=== PATIENT | female | born 1950 | race Caucasian/White ===

== ENCOUNTER 2017-05-23 23:24 | Inpatient (IN) | payer MEDICARE, MEDICAID ==
[~2017-05-23] VITALS: Ht 152.4 cm; Wt 84.1 kg
[2017-05-24] MEDS ORDERED: ATOR10TA60 PO (00:50)
[2017-05-24] MEDS ORDERED: POTA10TA10 PO (00:50)
[2017-05-24] MEDS ORDERED: GUAI237L83 PO (00:50)
[2017-05-24] MEDS ORDERED: CHOL10003 PO (00:50)
[2017-05-24] MEDS ORDERED: SENN8.6T80 PO (00:50)
[2017-05-24] MEDS ORDERED: MULT-245 PO (00:50)
[2017-05-24] MEDS ORDERED: ACET325T9 PO (00:50)
[2017-05-24] MEDS ORDERED: LEVO150T5 PO (00:50)
[2017-05-24] MEDS ORDERED: CALC1TAB64 PO (00:50)
[2017-05-24] MEDS ORDERED: BUPR150T8 PO (00:50)
[2017-05-24] MEDS ORDERED: QUET200T4 PO (00:50)
[2017-05-24] MEDS ORDERED: IBUP400T18 PO (00:50)
[2017-05-24] MEDS ORDERED: DIVA125C PO ×2 (00:50)
[2017-05-24] MEDS ORDERED: LORA10TA3 PO (00:50)
[2017-05-24] MEDS ORDERED: FURO-68 PO (00:50)
[2017-05-24] MEDS ORDERED: LOPE1LIQ11 PO (00:50)
[2017-05-24] MEDS ORDERED: MAGN400O7 PO (00:50)
[2017-05-24] MEDS ORDERED: POLY119P4 PO (00:50)
[2017-05-24] MEDS ORDERED: LOPE2TAB27 PO (00:50)
[2017-05-24] MEDS ORDERED: MINE473L5 TP (00:50)
[2017-05-24] MEDS ORDERED: GUAI5SYR PO (00:50)
[2017-05-24] MEDS ORDERED: CALC500T54 PO (00:50)
[2017-05-24] MEDS ORDERED: RISP3TAB23 PO (00:50)
[2017-05-24] MEDS ORDERED: METHYL SALICYLATE/MENTHOL TOPICAL OINTMENT 29GM TUBE. TP PRN (01:15)
[2017-05-24] MEDS ORDERED: MAG HYDROX/AL HYDROX/SIMETH 30 ML ORAL.SUSP PO PRN (01:15)
[2017-05-24] MEDS ORDERED: guaiFENesin DM 200MG/20MG 10 ML SYRUP PO PRN (01:30)
[2017-05-24] MEDS ORDERED: MAGNESIUM HYDROXIDE 2,400 MG/30 ML ORAL.SUSP. PO PRN ×2 (01:30→02:00)
[2017-05-24] MEDS ORDERED: ACETAMINOPHEN 325 MG TABLET PO PRN (01:30)
[2017-05-24] MEDS ORDERED: POLYETHYLENE GLYCOL 3350 17 GM PACKET. PO PRN (01:30)
[2017-05-24] MEDS ORDERED: CALCIUM CARBONATE 500 MG TAB.CHEW PO PRN (02:00)
[2017-05-24] MEDS ORDERED: LOPERAMIDE 2 MG CAPSULE PO PRN (02:00)
[2017-05-24] MEDS: LEVOTHYROXINE 150 MCG TABLET PO SCH (06:04)
[2017-05-24 06:28] VITALS: BP 114/64
[2017-05-24] MEDS: MULTIVITAMIN with MINERAL TABLET. PO SCH (08:09)
[2017-05-24] MEDS: CHOLECALCIFEROL (VITAMIN D3) 1,000 UNIT TABLET PO SCH (08:10)
[2017-05-24] MEDS: FUROSEMIDE 40 MG TABLET PO SCH ×2 (08:10→13:07)
[2017-05-24] MEDS: buPROPion SR 150 MG TABLET.SA PO SCH (08:10)
[2017-05-24] MEDS: risperiDONE 1 MG TABLET. PO SCH ×2 (08:10→19:16)
[2017-05-24] MEDS: DIVALPROEX 125 MG CAP.SPRINK PO SCH ×2 (08:10→20:13)
[2017-05-24] MEDS: POTASSIUM CHLORIDE 10 MEQ TABLET.ER. PO SCH (08:10)
[2017-05-24] MEDS: CALCIUM CARB/VIT D3 500/200 TABLET PO SCH (08:10)
[2017-05-24] MEDS: NICOTINE 21MG PATCH. TD SCH ×2 (08:11→08:17)
[2017-05-24] MEDS: MINERAL OIL/PETROLATUM TOPICAL CREAM 113GM JAR. TP SCH (08:18)
[2017-05-24 08:22] LABS: ALBUMIN 3.3 g/dL (3.4-5.0); ALBUMIN/GLOBULIN RATIO 1.1 (1.0-1.7); CALCIUM 9.7 mg/dL (8.5-10.1); CREATININE 0.5 mg/dL (0.6-1.0); GFR 123.8; MAGNESIUM 2.2 mg/dL (1.8-2.4); POTASSIUM 3.8 mmol/L (3.5-5.1); TOTAL BILIRUBIN 0.3 mg/dL (0.2-1.0); TOTAL PROTEIN 6.4 g/dL (6.4-8.2)
[2017-05-24] MEDS ORDERED: CETIRIZINE HCL 10 MG TABLET PO PRN (09:00)
[2017-05-24 09:01] LABS: VAL ACID 31 mcg/mL (50-100)
[2017-05-24 09:02] LABS: BASO % 1 % (0-3); EOS # 0.2 x10^3/uL (0.0-0.7); EOS % 3 % (0-3); HEMATOCRIT 36.4 % (36.0-47.0); HEMOGLOBIN 12.6 g/dL (12.0-15.5); LYMPH # 1.3 x10^3/uL (1.0-4.8); LYMPH % 22 % (24-48); MEAN CORPUSCULAR HEMOGLOBIN 32 pg (25-35); MEAN CORPUSCULAR HGB CONC 35 g/dL (31-37); MEAN CORPUSCULAR VOLUME 91 fL (79-100); MONO # 1.2 x10^3/uL (0.0-1.1); MONO % 20 % (0-9); NEUT # 3.2 x10^3uL (1.8-7.7); NEUT % 55 % (31-73); PLATELET COUNT 376 x10^3/uL (140-400); RED BLOOD COUNT 3.99 x10^6/uL (3.50-5.40); RED CELL DISTRIBUTION WIDTH 12.7 % (11.5-14.5); WHITE BLOOD COUNT 5.8 x10^3/uL (4.0-11.0)
[2017-05-24 10:44] LABS: THYROID STIM HORMONE (TSH) 2.69 uIU/mL (0.358-3.740)
[2017-05-24 16:56] VITALS: BP 114/66
[2017-05-24] MEDS: QUEtiapine 100 MG TABLET. PO SCH (20:12)
[2017-05-24] MEDS: ATORVASTATIN CALCIUM 10 MG TABLET. PO SCH (20:12)
[2017-05-24] MEDS: SENNOSIDES 8.6 MG TABLET PO SCH (20:13)
--- NOTE | 2017-05-24 22:14 | PDOC ---
Exam Note: Maulik Note: Please also refer to the separate dictated note~for this date of service dictated separately.~Patient seen individually. Discussed the patient with Nursing staff reviewed the chart.~Reviewed interim history and current functioning. Reviewed vital signs,~Labs/ Radiology~and current medications noted below. Continue current treatment with the changes noted in the dictated addendum note Assessment: Vital Signs: Vital Signs Date Time Temp Pulse Resp B/P (MAP) Pulse Ox O2 Delivery O2 Flow Rate FiO2 05/24/17 16:56 98.6 65 18 114/66 (82) 96 Labs: Laboratory Tests Test 05/24/17 07:37 White Blood Count 5.8 x10^3/uL (4.0-11.0) Red Blood Count 3.99 x10^6/uL (3.50-5.40) Hemoglobin 12.6 g/dL (12.0-15.5) Hematocrit 36.4 % (36.0-47.0) Mean Corpuscular Volume 91 fL (79-100) Mean Corpuscular Hemoglobin 32 pg (25-35) Mean Corpuscular Hemoglobin Concent 35 g/dL (31-37) Red Cell Distribution Width 12.7 % (11.5-14.5) Platelet Count 376 x10^3/uL (140-400) Neutrophils (%) (Auto) 55 % (31-73) Lymphocytes (%) (Auto) 22 % (24-48) L Monocytes (%) (Auto) 20 % (0-9) H Eosinophils (%) (Auto) 3 % (0-3) Basophils (%) (Auto) 1 % (0-3) Neutrophils # (Auto) 3.2 x10^3uL (1.8-7.7) Lymphocytes # (Auto) 1.3 x10^3/uL (1.0-4.8) Monocytes # (Auto) 1.2 x10^3/uL (0.0-1.1) H Eosinophils # (Auto) 0.2 x10^3/uL (0.0-0.7) Basophils # (Auto) 0.0 x10^3/uL (0.0-0.2) Sodium Level 134 mmol/L (136-145) L Potassium Level 3.8 mmol/L (3.5-5.1) Chloride Level 98 mmol/L (98-107) Carbon Dioxide Level 31 mmol/L (21-32) Anion Gap 5 (6-14) L Blood Urea Nitrogen 4 mg/dL (7-20) L Creatinine 0.5 mg/dL (0.6-1.0) L Estimated GFR (Cockcroft-Gault) 123.8 BUN/Creatinine Ratio 8 (6-20) Glucose Level 98 mg/dL (70-99) Calcium Level 9.7 mg/dL (8.5-10.1) Magnesium Level 2.2 mg/dL (1.8-2.4) Iron Level 43 ug/dL (50-170) L Total Iron Binding Capacity 275 ug/dL (250-450) Iron Saturation 16 % (15-34) Total Bilirubin 0.3 mg/dL (0.2-1.0) Aspartate Amino Transferase (AST) 14 U/L (15-37) L Alanine Aminotransferase (ALT) 17 U/L (14-59) Alkaline Phosphatase 65 U/L (46-116) Total Protein 6.4 g/dL (6.4-8.2) Albumin 3.3 g/dL (3.4-5.0) L Albumin/Globulin Ratio 1.1 (1.0-1.7) Triglycerides Level 67 mg/dL (0-150) Cholesterol Level 114 mg/dL (0-200) LDL Cholesterol, Calculated 41 mg/dL (0-100) VLDL Cholesterol, Calculated 13 mg/dL (0-40) Non-HDL Cholesterol Calculated 54 mg/dL (0-129) HDL Cholesterol 60 mg/dL (40-60) Cholesterol/HDL Ratio 1.0 Thyroid Stimulating Hormone (TSH) 2.690 uIU/mL (0.358-3.740) Valproic Acid Level 31 mcg/mL (50-100) L Valproic Acid Last Dose Date 05/23/2017 Valproic Acid Last Dose Time 0900 Current Medications: Meds: Current Medications Multi-Ingredient Ointment (Analgesic [place]) 1 tiffany PRN QID PRN TP MUSCLE PAIN; Start 05/24/17 at 01:15 Al Hydroxide/Mg Hydroxide (Mylanta Plus Xs) 15 ml PRN AFTMEALHC PRN PO DYSPEPSIA; Start 05/24/17 at 01:15 Nicotine (Nicoderm Cq 21mg) 1 patch DAILY TD ; Start 05/24/17 at 09:00 Bupropion HCl (Wellbutrin Sr) 150 mg DAILY PO Last administered on 05/24/17 08 :10; Start 05/24/17 at 09:00 Divalproex Sodium (Depakote Sprinkles) 250 mg DAILY PO Last administered on 08:10; Start 05/24/17 at 09:00 Divalproex Sodium (Depakote Sprinkles) 500 mg QHS PO Last administered on at 20:13; Start 05/24/17 at 21:00 Quetiapine Fumarate (SEROquel) 100 mg QHS PO Last administered on 05/24/17 20: 12; Start 05/24/17 at 21:00 Risperidone (RisperDAL) 3 mg BID PO Last administered on 05/24/17 19:16; Start 05/24/17 at 09:00 Olanzapine (ZyPREXA ZYDIS) 5 mg PRN Q2HR PRN PO Psych; Start 05/24/17 at 01:15 Acetaminophen (Tylenol) 650 mg PRN Q6HRS PRN PO PAIN / TEMP; Start 05/24/17 at 01:30; Status UNV Atorvastatin Calcium (Lipitor) 10 mg QHS PO Last administered on 05/24/17 20: 12; Start 05/24/17 at 21:00 Vitamin D (Vitamin D3) 1,000 unit DAILY PO Last administered on 05/24/17 08:10 ; Start 05/24/17 at 09:00 Furosemide (Lasix) 40 mg BID92 PO Last administered on 05/24/17at 13:07; Start 05/24/17 at 09:00 Guaifenesin (Robitussin Dm) 5 ml PRN Q6HRS PRN PO CONGESTION; Start 05/24/17 at 01:30 Ibuprofen (Motrin) 400 mg PRN Q4HRS PRN PO MODERATE PAIN; Start 05/24/17 at 01: 30 Levothyroxine Sodium (Synthroid) 150 mcg DAILY07 PO Last administered on at 06:04; Start 05/24/17 at 07:00 Magnesium Hydroxide (Milk Of Magnesia) 2,400 mg PRN Q24HRS PRN PO CONSTIPATION ; Start 05/24/17 at 01:30; Status UNV Polyethylene Glycol (miraLAX) 17 gm PRN DAILY PRN PO CONSTIPATION; Start at 01:30 Sennosides (Senna) 8.6 mg QHS PO Last administered on 05/24/17at 20:13; Start at 21:00 Calcium Carbonate/ Glycine (Tums) 500 mg PRN Q4HRS PRN PO INDIGESTION; Start at 02:00 Calcium/Vitamin D (Oscal D 500mg/ 200uts) 1 tab DAILYWBKFT PO Last administered on 05/24/17at 08:10; Start 05/24/17 at 08:00 Loperamide HCl (Imodium) 2 mg PRN Q2MIN PRN PO DIARRHEA; Start 05/24/17 at 02: 00 Cetirizine HCl (ZyrTEC) 10 mg PRN DAILY PRN PO ALLERGIES; Start 05/24/17 at 09: 00 Multi-Ingred Cream/Lotion/Oil/ Oint (Hydrocerin) 1 tiffany DAILY TP Last administered on 05/24/17at 08:18; Start 05/24/17 at 09:00 Multivitamins/ Calcium (Thera-M Plus) 1 tab DAILY PO Last administered on at 08:09; Start 05/24/17 at 09:00 Potassium Chloride (Klor-Con) 10 meq DAILYWBKFT PO Last administered on at 08:10; Start 05/24/17 at 08:00 Acetaminophen (Tylenol) 650 mg PRN Q6HRS PRN PO PAIN / TEMP; Start 05/24/17 at 02:00 Magnesium Hydroxide (Milk Of Magnesia) 2,400 mg PRN Q24HRS PRN PO CONSTIPATION ; Start 05/24/17 at 02:00 Active Scripts Active Reported Vitamin D3 (Cholecalciferol (Vitamin D3)) 1,000 Unit Tablet 1,000 Unit PO DAILY Calcium (Calcium Carbonate) 500 Mg Tab.chew 500 Mg PO PRN Q4HRS PRN Senna Concentrate (Sennosides) 8.6 Mg Tablet 8.6 Mg PO QHS Guaifenesin Dm Syrup (Guaifenesin/Dextromethorphan) 5 Ml Syrup 5 Ml PO PRN Q6HRS PRN Robitussin Cough-Chest Dm Liq (Guaifenesin/Dextromethorphan) 237 Ml Liquid 237 Ml PO Risperdal (Risperidone) 3 Mg Tablet 3 Mg PO BID Seroquel (Quetiapine Fumarate) 200 Mg Tablet 200 Mg PO QHS Potassium Chloride 10 Meq Tablet.er 10 Meq PO DAILY Miralax (Polyethylene Glycol 3350) 119 Gm Powder 17 Gm PO PRN DAILY PRN Multi Vitamin Daily (Multivitamin) 1 Each Tablet 1 Tab PO DAILY Milk Of Magnesia (Magnesium Hydroxide) 400 Mg/5 Ml Oral.susp 2,400 Mg PO PRN Q24HRS PRN Loratadine 10 Mg Tablet 10 Mg PO PRN Q24HRS PRN Loperamide (Loperamide Hcl) 2 Mg Tablet 2 Mg PO PRN Q2HR PRN MDD 16mg Loperamide (Loperamide Hcl) 1 Mg/7.5 Ml Liquid 2 Mg PO PRN Q2HR PRN MDD 16mg Levothyroxine Sodium 150 Mcg Tablet 150 Mcg PO DAILY07 Ibuprofen 400 Mg Tablet 400 Mg PO PRN Q4HRS PRN Hydrocerin Lotion (Mineral Oil/I-Prop Myr/Water) 472 Ml Lotion 1 Tiffany TP DAILY Lasix (Furosemide) 40 Mg Tablet 40 Mg PO BID92 Depakote Sprinkle (Divalproex Sodium) 125 Mg Cap.sprink 500 Mg PO QHS Depakote Sprinkle (Divalproex Sodium) 125 Mg Cap.sprink 250 Mg PO DAILY Calcium 600 + Vit D 400 Tablet (Calcium Carbonate/Vitamin D3) 1 Each Tablet 1 Tab PO DAILY Wellbutrin Sr (Bupropion Hcl) 150 Mg Tablet.er 150 Mg PO DAILY Atorvastatin Calcium 10 Mg Tablet 10 Mg PO QHS Tylenol (Acetaminophen) 325 Mg Tablet 650 Mg PO PRN Q6HRS PRN I have reviewed the current psychotropics carefully including drug interactions. Risk benefit ratio favors no change other than as noted in my dictated progress note. CHRIS العلي MD May 24, 2017 22:14
--- NOTE | 2017-05-24 22:53 | HP ---
ADMIT DATE: 05/24/2017 This note covers elements not covered in my initial note of 05/24/2017. IDENTIFYING DATA: The patient is a 66-year-old female who is referred to us from the Emergency Room at [facility] where she presented from [facility] in [place], [place], on account of worsening psychotic symptoms, mood swings, refusing her psychotropics for the past 2 weeks for her schizophrenia versus schizoaffective disorder, bipolar type. She eloped from the residential on 05/24/2017, refused her IM injections. She had previously called 911 stating there was a black man in the window. The patient was paranoid, psychotic, agitated, had failed outpatient psychiatric interventions resulting in this referral. She had received 10 mg, Zyprexa IM in the ER, eloped out, went to a hotel, called her brother. Police occurred to the facility and then the Emergency Room and then the referral to us. CHIEF COMPLAINT: "I came here today. What's all this about. They are trying to do things. It is all the same." The patient is quite paranoid, psychotic, agitated as I met with her evening of 05/24/2017. HISTORY OF PRESENT ILLNESS: The patient has a history of schizoaffective disorder, bipolar type versus schizophrenia. Her brother, Don Noel, is her guardian who prompted this admission. She has had no prior psychiatric hospitalization at [facility] for relapse as well. More recently, she has been quite paranoid, psychotic, agitated, aggressive. There is no active suicidal or homicidal ideation. PAST PSYCHIATRIC HISTORY: Schizoaffective disorder, bipolar type. PAST MEDICAL HISTORY: Parkinson disease, CHF, hypothyroidism, hyperlipidemia, osteoarthritis, COPD, edema, GERD, peripheral vascular disease. ACCU-CHEKS: None. DIET: Regular. CODE STATUS: DNR. ALLERGIES: PENICILLIN. FAMILY HISTORY: Noncontributory. SOCIAL HISTORY: No alcohol or drug abuse, physical, sexual or elder abuse history is noted. Not known to be a perpetrator. CURRENT PSYCHOTROPICS: Wellbutrin SR 150 mg daily, Depakote Sprinkles 250 in the morning and 500 at night, level is 31. Seroquel 200 mg at bedtime, Risperdal 3 mg b.i.d., Zyprexa p.rjp REVIEW OF SYSTEMS: No CV, , pulmonary, eye, ENT system symptoms on review. Reliability poor. MENTAL STATUS EXAMINATION: Oriented to herself and situation. Speech coherent, rapid at times. She is pacing up and down the hallway, quite psychotic, paranoid. Insight, judgment, recent memory is impaired. Language function intact. Attention span short. Mood and affect remains labile. LABORATORY DATA: Reviewed. IMPRESSION: Schizoaffective disorder, bipolar type, mixed with psychotic features, schizophrenia, chronic paranoid type with acute exacerbation; anxiety disorder, unspecified; impulse control disorder, unspecified. Rest unchanged from admission as noted above. PLAN: Admit to geropsychiatry unit at [facility]. I will see the patient daily individually from a psychiatric standpoint. Medical followup per Dr. Burnham/Dr Loo. Continue the patient on her current psychotropics. Encourage compliance. Observe baseline, then adjust Depakote to reach a therapeutic level. May consider Clozaril as an antipsychotic depending on how she does. CHRIS العلي MD DR: PATIENCE/ilia JOB#: [id number] / [id number]
[2017-05-25] MEDS: LEVOTHYROXINE 150 MCG TABLET PO SCH (04:04)
[2017-05-25 05:44] LABS: BACTERIA,URINE 0 /HPF (0-FEW); BILIRUBIN,URINE NEG (NEG); CLARITY,URINE CLEAR; COLOR,URINE YELLOW; GLUCOSE,URINE NEG (NEG); NITRITE,URINE NEG (NEG); RBC,URINE 0 /HPF (0-2); SQUAMOUS EPITHELIAL CELL,UR FEW /LPF; UROBILINOGEN,URINE 0.2 mg/dL (0.2 mg/dL)
[2017-05-25 06:12] VITALS: BP 110/50
[2017-05-25] MEDS: CHOLECALCIFEROL (VITAMIN D3) 1,000 UNIT TABLET PO SCH (09:30)
[2017-05-25] MEDS: POTASSIUM CHLORIDE 10 MEQ TABLET.ER. PO SCH (09:31)
[2017-05-25] MEDS: CALCIUM CARB/VIT D3 500/200 TABLET PO SCH (09:31)
[2017-05-25] MEDS: FUROSEMIDE 40 MG TABLET PO SCH ×2 (09:31→13:19)
[2017-05-25] MEDS: risperiDONE 1 MG TABLET. PO SCH ×2 (09:32→20:43)
[2017-05-25] MEDS: NICOTINE 21MG PATCH. TD SCH (09:32)
[2017-05-25] MEDS: buPROPion SR 150 MG TABLET.SA PO SCH (09:32)
[2017-05-25] MEDS: DIVALPROEX 125 MG CAP.SPRINK PO SCH ×2 (09:32→20:43)
[2017-05-25] MEDS: MULTIVITAMIN with MINERAL TABLET. PO SCH (09:32)
[2017-05-25] MEDS: MINERAL OIL/PETROLATUM TOPICAL CREAM 113GM JAR. TP SCH (09:33)
--- NOTE | 2017-05-25 09:54 | CONS ---
DATE OF CONSULTATION: 05/24/2017 REASON FOR CONSULTATION: Consult for medical management. HISTORY OF PRESENT ILLNESS: The patient is a 66-year-old female patient, a resident at [facility] in [place], who apparently started refusing her medication 2 weeks ago and yesterday she eloped from the facility, ambulated to hotel and called her brother. The patient was taken back to the facility via the police and transferred to the Emergency Department of [facility], where she was evaluated and from there she was [facility] for inpatient psychiatric stabilization. The patient is known to have paranoid schizophrenia with acute exacerbation. On questioning her today, she denied any complaint and the only thing she wanted if she can go home tonight. PAST MEDICAL HISTORY: Significant for congestive heart failure, hypothyroidism, hyperlipidemia, osteoarthritis, COPD, Parkinson's disease, gastroesophageal reflux disease, and peripheral vascular disease. PAST PSYCHIATRIC HISTORY: Significant for paranoid schizophrenia, anxiety, major depressive disorder and mood disorder. PAST SURGICAL HISTORY: Significant for laser treatment and surgery of her right eye and section. FAMILY HISTORY: Unremarkable. SOCIAL HISTORY: She apparently used to live alone in her own apartment in [place]. She has 2 sons that keep in touch. She continued to smoke, does not drink alcohol or recreational drugs. She did work at different things including banking, worked in a factory, in [employer] and also ____ [employer]. ALLERGIES: She is allergic to PENICILLIN. MEDICATIONS: She is currently on the following medications: She is on loratadine 10 mg once a day, atorvastatin calcium 10 mg at bedtime, ibuprofen 400 mg every 4 hours as needed for pain, Tylenol 650 mg every 6 hours, divalproex sodium 250 mg daily and 500 mg at bedtime. She is on Wellbutrin, slow release 150 mg daily. She is on quetiapine fumarate 200 mg at bedtime, risperidone 3 mg 3 times a day. She is on calcium carbonate 500 mg every 4 hours as needed, calcium carbonate with vitamin D3 one tablet daily. She is on potassium chloride 10 mEq once a day, furosemide 40 mg twice a day. She is on Robitussin-DM 5 mL every 4 hours as needed for cough, loperamide 2 mg every 2 hours as needed, loperamide 2 mg not to exceed 16 mg a day, milk of magnesia 30 mL p.o. daily p.r.n. for constipation, polyethylene glycol 17 grams daily p.r.n. for constipation, levothyroxine sodium 150 mcg daily, cholecalciferol vitamin D3 is 1000 International Units once a day, and multivitamin 1 tablet once a day. PHYSICAL EXAMINATION: GENERAL: On examining her, she was resting slightly propped up in bed, in no apparent respiratory distress. She was slightly pale, but no jaundice or cyanosis. No lymphadenopathy, no thyromegaly. No jugular venous distension. No lower limb edema. VITAL SIGNS: Her heart rate was 77, blood pressure was 114/64, temperature was 97.8, respiratory rate was 20, and oxygen saturation was 98% on room air. HEAD: Showed normocephalic, atraumatic. NECK: Supple. HEART: Showed normal first and second heart sounds. No gallop, rub or murmur. CHEST: Clear to auscultation. No crepitation or rhonchi. ABDOMEN: Distended, soft, nontender. NEUROLOGIC: She is awake, alert, responding appropriately. Cranial nerves intact. EXTREMITIES: She moves all extremities without difficulty. She ambulates without assistance or assistive devices. LABORATORY DATA: Her lab work showed a serum sodium of 134, potassium 3.8, chloride 98, bicarbonate 31, anion gap of 5, BUN 4, creatinine was 0.5 mg/dL, estimated GFR was 124 mL per minute, her glucose was 98, calcium was 9.7, magnesium 2.2. Her serum iron was 43, TIBC was 275 and percent saturation was 16. Total bilirubin, AST, ALT, and alkaline phosphatase were normal. Her total protein was 6.4, albumin 3.3 g/dL. Serum triglycerides were 67, total cholesterol 114, LDL cholesterol 41, VLDL was 13, and HDL cholesterol was 60 and the ratio was 1. TSH was 2.690. Her white cell count was 5100, hemoglobin 13, hematocrit 36, MCV 91, and platelet count 276,000. Her toxic screen showed serum valproic acid was ____, which is below the lower limit of normal therapeutic range. IMPRESSION: In summary, this is a 66-year-old female patient, a patient, who basically started refusing her medication 2 weeks ago at [facility] [place] and yesterday, she eloped from the facility, ambulated to hotel and called her brother. She was taken back to the facility by the police and then transferred to the ER and she is here for inpatient psychiatric stabilization. Medically, she has multiple medical problems including hypothyroidism, hyperlipidemia, COPD, Parkinson disease, gastroesophageal reflux disease and peripheral vascular disease. Her vital signs and all her lab work seems to be all within acceptable range. I probably will continue with all her medications. I will follow all the other labs that are still pending and make any necessary recommendation. Thank you, Dr. Álvarez, for allowing me to participate in the care of this patient. SANDRA ROLAND MD DR: RUSS/ilia JOB#: [id number] / [id number]
[2017-05-25 11:11] LABS: T3 TOTAL 90 ng/dL (71-180)
[2017-05-25] MEDS: IBUPROFEN 400 MG TABLET. PO PRN (13:18)
[2017-05-25 15:54] VITALS: BP 93/64
--- NOTE | 2017-05-25 18:14 | PDOC ---
Exam Note: Maulik Note: Please also refer to the separate dictated note~for this date of service dictated separately.~Patient seen individually. Discussed the patient with Nursing staff reviewed the chart.~Reviewed interim history and current functioning. Reviewed vital signs,~Labs/ Radiology~and current medications noted below. Continue current treatment with the changes noted in the dictated addendum note Assessment: Vital Signs: Vital Signs Date Time Temp Pulse Resp B/P (MAP) Pulse Ox O2 Delivery O2 Flow Rate FiO2 05/25/17 15:54 97.6 78 20 93/64 (74) 95 I&O Intake and Output 05/25/17 07:00 Intake Total 840 ml Balance 840 ml Intake Oral 840 ml # Voids 2 Labs: Laboratory Tests Test 05/25/17 05:00 Urine Collection Type Unknown Urine Color Yellow Urine Clarity Clear Urine pH 7.0 Urine Specific [place] 1.010 Urine Protein Neg (NEG-TRACE) Urine Glucose (UA) Neg mg/dL (NEG) Urine Ketones (Stick) Neg mg/dL (NEG) Urine Blood Neg (NEG) Urine Nitrite Neg (NEG) Urine Bilirubin Neg (NEG) Urine Urobilinogen Dipstick 0.2 mg/dL (0.2 mg/dL) Urine Leukocyte Esterase Trace (NEG) Urine RBC 0 /HPF (0-2) Urine WBC 1-4 /HPF (0-4) Urine Squamous Epithelial Cells Few /LPF Urine Bacteria 0 /HPF (0-FEW) Current Medications: Meds: Current Medications Multi-Ingredient Ointment (Analgesic [place]) 1 tiffany PRN QID PRN TP MUSCLE PAIN; Start 05/24/17 at 01:15 Al Hydroxide/Mg Hydroxide (Mylanta Plus Xs) 15 ml PRN AFTMEALHC PRN PO DYSPEPSIA; Start 05/24/17 at 01:15 Nicotine (Nicoderm Cq 21mg) 1 patch DAILY TD Last administered on 05/25/17at 09: 32; Start 05/24/17 at 09:00 Bupropion HCl (Wellbutrin Sr) 150 mg DAILY PO Last administered on 05/25/17at 09 :32; Start 05/24/17 at 09:00 Divalproex Sodium (Depakote Sprinkles) 250 mg DAILY PO Last administered on at 09:32; Start 05/24/17 at 09:00 Divalproex Sodium (Depakote Sprinkles) 500 mg QHS PO Last administered on 20:13; Start 05/24/17 at 21:00 Quetiapine Fumarate (SEROquel) 100 mg QHS PO Last administered on 05/24/17 20: 12; Start 05/24/17 at 21:00 Risperidone (RisperDAL) 3 mg BID PO Last administered on 05/25/17 09:32; Start 05/24/17 at 09:00 Olanzapine (ZyPREXA ZYDIS) 5 mg PRN Q2HR PRN PO Psych; Start 05/24/17 at 01:15 Acetaminophen (Tylenol) 650 mg PRN Q6HRS PRN PO PAIN / TEMP; Start 05/24/17 at 01:30; Status UNV Atorvastatin Calcium (Lipitor) 10 mg QHS PO Last administered on 05/24/17 20: 12; Start 05/24/17 at 21:00 Vitamin D (Vitamin D3) 1,000 unit DAILY PO Last administered on 05/25/17 09:30 ; Start 05/24/17 at 09:00 Furosemide (Lasix) 40 mg BID92 PO Last administered on 05/25/17 13:19; Start 05/24/17 at 09:00 Guaifenesin (Robitussin Dm) 5 ml PRN Q6HRS PRN PO CONGESTION; Start 05/24/17 at 01:30 Ibuprofen (Motrin) 400 mg PRN Q4HRS PRN PO MODERATE PAIN Last administered on 13:18; Start 05/24/17 at 01:30 Levothyroxine Sodium (Synthroid) 150 mcg DAILY07 PO Last administered on at 04:04; Start 05/24/17 at 07:00 Magnesium Hydroxide (Milk Of Magnesia) 2,400 mg PRN Q24HRS PRN PO CONSTIPATION ; Start 05/24/17 at 01:30; Status UNV Polyethylene Glycol (miraLAX) 17 gm PRN DAILY PRN PO CONSTIPATION; Start at 01:30 Sennosides (Senna) 8.6 mg QHS PO Last administered on 05/24/17 20:13; Start at 21:00 Calcium Carbonate/ Glycine (Tums) 500 mg PRN Q4HRS PRN PO INDIGESTION; Start at 02:00 Calcium/Vitamin D (Oscal D 500mg/ 200uts) 1 tab DAILYWBKFT PO Last administered on 05/25/17at 09:31; Start 05/24/17 at 08:00 Loperamide HCl (Imodium) 2 mg PRN Q2MIN PRN PO DIARRHEA; Start 05/24/17 at 02: 00 Cetirizine HCl (ZyrTEC) 10 mg PRN DAILY PRN PO ALLERGIES; Start 05/24/17 at 09: 00 Multi-Ingred Cream/Lotion/Oil/ Oint (Hydrocerin) 1 tiffany DAILY TP Last administered on 05/25/17at 09:33; Start 05/24/17 at 09:00 Multivitamins/ Calcium (Thera-M Plus) 1 tab DAILY PO Last administered on at 09:32; Start 05/24/17 at 09:00 Potassium Chloride (Klor-Con) 10 meq DAILYWBKFT PO Last administered on at 09:31; Start 05/24/17 at 08:00 Acetaminophen (Tylenol) 650 mg PRN Q6HRS PRN PO PAIN / TEMP; Start 05/24/17 at 02:00 Magnesium Hydroxide (Milk Of Magnesia) 2,400 mg PRN Q24HRS PRN PO CONSTIPATION ; Start 05/24/17 at 02:00 Active Scripts Active Reported Vitamin D3 (Cholecalciferol (Vitamin D3)) 1,000 Unit Tablet 1,000 Unit PO DAILY Calcium (Calcium Carbonate) 500 Mg Tab.chew 500 Mg PO PRN Q4HRS PRN Senna Concentrate (Sennosides) 8.6 Mg Tablet 8.6 Mg PO QHS Guaifenesin Dm Syrup (Guaifenesin/Dextromethorphan) 5 Ml Syrup 5 Ml PO PRN Q6HRS PRN Robitussin Cough-Chest Dm Liq (Guaifenesin/Dextromethorphan) 237 Ml Liquid 237 Ml PO Risperdal (Risperidone) 3 Mg Tablet 3 Mg PO BID Seroquel (Quetiapine Fumarate) 200 Mg Tablet 200 Mg PO QHS Potassium Chloride 10 Meq Tablet.er 10 Meq PO DAILY Miralax (Polyethylene Glycol 3350) 119 Gm Powder 17 Gm PO PRN DAILY PRN Multi Vitamin Daily (Multivitamin) 1 Each Tablet 1 Tab PO DAILY Milk Of Magnesia (Magnesium Hydroxide) 400 Mg/5 Ml Oral.susp 2,400 Mg PO PRN Q24HRS PRN Loratadine 10 Mg Tablet 10 Mg PO PRN Q24HRS PRN Loperamide (Loperamide Hcl) 2 Mg Tablet 2 Mg PO PRN Q2HR PRN MDD 16mg Loperamide (Loperamide Hcl) 1 Mg/7.5 Ml Liquid 2 Mg PO PRN Q2HR PRN MDD 16mg Levothyroxine Sodium 150 Mcg Tablet 150 Mcg PO DAILY07 Ibuprofen 400 Mg Tablet 400 Mg PO PRN Q4HRS PRN Hydrocerin Lotion (Mineral Oil/I-Prop Myr/Water) 472 Ml Lotion 1 Tiffany TP DAILY Lasix (Furosemide) 40 Mg Tablet 40 Mg PO BID92 Depakote Sprinkle (Divalproex Sodium) 125 Mg Cap.sprink 500 Mg PO QHS Depakote Sprinkle (Divalproex Sodium) 125 Mg Cap.sprink 250 Mg PO DAILY Calcium 600 + Vit D 400 Tablet (Calcium Carbonate/Vitamin D3) 1 Each Tablet 1 Tab PO DAILY Wellbutrin Sr (Bupropion Hcl) 150 Mg Tablet.er 150 Mg PO DAILY Atorvastatin Calcium 10 Mg Tablet 10 Mg PO QHS Tylenol (Acetaminophen) 325 Mg Tablet 650 Mg PO PRN Q6HRS PRN I have reviewed the current psychotropics carefully including drug interactions. Risk benefit ratio favors no change other than as noted in my dictated progress note. Diagnosis: Problems: (1) Anxiety disorder (2) Bipolar affective, mixed, sev w/ psych (3) Impulse control disorder (4) Schizophrenia, disorganized, subchronic with acute exacerbation (5) Schizoaffective disorder, bipolar type CHRIS العلي MD May 25, 2017 18:14
[2017-05-25] MEDS: QUEtiapine 100 MG TABLET. PO SCH (20:42)
[2017-05-25] MEDS: ATORVASTATIN CALCIUM 10 MG TABLET. PO SCH (20:42)
[2017-05-25] MEDS: SENNOSIDES 8.6 MG TABLET PO SCH (20:43)
--- NOTE | 2017-05-25 21:11 | PDOC ---
Exam Note: Maulik Note: Please also refer to the separate dictated note~for this date of service dictated separately.~Patient seen individually. Discussed the patient with Nursing staff reviewed the chart.~Reviewed interim history and current functioning. Reviewed vital signs,~Labs/ Radiology~and current medications noted below. Continue current treatment with the changes noted in the dictated addendum note Assessment: Vital Signs: Vital Signs Date Time Temp Pulse Resp B/P (MAP) Pulse Ox O2 Delivery O2 Flow Rate FiO2 05/25/17 15:54 97.6 78 20 93/64 (74) 95 I&O Intake and Output 05/25/17 07:00 Intake Total 840 ml Balance 840 ml Intake Oral 840 ml # Voids 2 Labs: Laboratory Tests Test 05/25/17 05:00 Urine Collection Type Unknown Urine Color Yellow Urine Clarity Clear Urine pH 7.0 Urine Specific [place] 1.010 Urine Protein Neg (NEG-TRACE) Urine Glucose (UA) Neg mg/dL (NEG) Urine Ketones (Stick) Neg mg/dL (NEG) Urine Blood Neg (NEG) Urine Nitrite Neg (NEG) Urine Bilirubin Neg (NEG) Urine Urobilinogen Dipstick 0.2 mg/dL (0.2 mg/dL) Urine Leukocyte Esterase Trace (NEG) Urine RBC 0 /HPF (0-2) Urine WBC 1-4 /HPF (0-4) Urine Squamous Epithelial Cells Few /LPF Urine Bacteria 0 /HPF (0-FEW) Current Medications: Meds: Current Medications Multi-Ingredient Ointment (Analgesic [place]) 1 tiffany PRN QID PRN TP MUSCLE PAIN; Start 05/24/17 at 01:15 Al Hydroxide/Mg Hydroxide (Mylanta Plus Xs) 15 ml PRN AFTMEALHC PRN PO DYSPEPSIA; Start 05/24/17 at 01:15 Nicotine (Nicoderm Cq 21mg) 1 patch DAILY TD Last administered on 05/25/17at 09: 32; Start 05/24/17 at 09:00 Bupropion HCl (Wellbutrin Sr) 150 mg DAILY PO Last administered on 05/25/17at 09 :32; Start 05/24/17 at 09:00 Divalproex Sodium (Depakote Sprinkles) 250 mg DAILY PO Last administered on at 09:32; Start 05/24/17 at 09:00 Divalproex Sodium (Depakote Sprinkles) 500 mg QHS PO Last administered on 20:43; Start 05/24/17 at 21:00 Quetiapine Fumarate (SEROquel) 100 mg QHS PO Last administered on 05/25/17 20: 42; Start 05/24/17 at 21:00 Risperidone (RisperDAL) 3 mg BID PO Last administered on 05/25/17 20:43; Start 05/24/17 at 09:00 Olanzapine (ZyPREXA ZYDIS) 5 mg PRN Q2HR PRN PO Psych; Start 05/24/17 at 01:15 Acetaminophen (Tylenol) 650 mg PRN Q6HRS PRN PO PAIN / TEMP; Start 05/24/17 at 01:30; Status UNV Atorvastatin Calcium (Lipitor) 10 mg QHS PO Last administered on 05/25/17 20: 42; Start 05/24/17 at 21:00 Vitamin D (Vitamin D3) 1,000 unit DAILY PO Last administered on 05/25/17 09:30 ; Start 05/24/17 at 09:00 Furosemide (Lasix) 40 mg BID92 PO Last administered on 05/25/17 13:19; Start 05/24/17 at 09:00 Guaifenesin (Robitussin Dm) 5 ml PRN Q6HRS PRN PO CONGESTION; Start 05/24/17 at 01:30 Ibuprofen (Motrin) 400 mg PRN Q4HRS PRN PO MODERATE PAIN Last administered on 13:18; Start 05/24/17 at 01:30 Levothyroxine Sodium (Synthroid) 150 mcg DAILY07 PO Last administered on 04:04; Start 05/24/17 at 07:00 Magnesium Hydroxide (Milk Of Magnesia) 2,400 mg PRN Q24HRS PRN PO CONSTIPATION ; Start 05/24/17 at 01:30; Status UNV Polyethylene Glycol (miraLAX) 17 gm PRN DAILY PRN PO CONSTIPATION; Start at 01:30 Sennosides (Senna) 8.6 mg QHS PO Last administered on 05/25/17 20:43; Start at 21:00 Calcium Carbonate/ Glycine (Tums) 500 mg PRN Q4HRS PRN PO INDIGESTION; Start at 02:00 Calcium/Vitamin D (Oscal D 500mg/ 200uts) 1 tab DAILYWBKFT PO Last administered on 05/25/17at 09:31; Start 05/24/17 at 08:00 Loperamide HCl (Imodium) 2 mg PRN Q2MIN PRN PO DIARRHEA; Start 05/24/17 at 02: 00 Cetirizine HCl (ZyrTEC) 10 mg PRN DAILY PRN PO ALLERGIES; Start 05/24/17 at 09: 00 Multi-Ingred Cream/Lotion/Oil/ Oint (Hydrocerin) 1 tiffany DAILY TP Last administered on 05/25/17at 09:33; Start 05/24/17 at 09:00 Multivitamins/ Calcium (Thera-M Plus) 1 tab DAILY PO Last administered on at 09:32; Start 05/24/17 at 09:00 Potassium Chloride (Klor-Con) 10 meq DAILYWBKFT PO Last administered on at 09:31; Start 05/24/17 at 08:00 Acetaminophen (Tylenol) 650 mg PRN Q6HRS PRN PO PAIN / TEMP; Start 05/24/17 at 02:00 Magnesium Hydroxide (Milk Of Magnesia) 2,400 mg PRN Q24HRS PRN PO CONSTIPATION ; Start 05/24/17 at 02:00 Active Scripts Active Reported Vitamin D3 (Cholecalciferol (Vitamin D3)) 1,000 Unit Tablet 1,000 Unit PO DAILY Calcium (Calcium Carbonate) 500 Mg Tab.chew 500 Mg PO PRN Q4HRS PRN Senna Concentrate (Sennosides) 8.6 Mg Tablet 8.6 Mg PO QHS Guaifenesin Dm Syrup (Guaifenesin/Dextromethorphan) 5 Ml Syrup 5 Ml PO PRN Q6HRS PRN Robitussin Cough-Chest Dm Liq (Guaifenesin/Dextromethorphan) 237 Ml Liquid 237 Ml PO Risperdal (Risperidone) 3 Mg Tablet 3 Mg PO BID Seroquel (Quetiapine Fumarate) 200 Mg Tablet 200 Mg PO QHS Potassium Chloride 10 Meq Tablet.er 10 Meq PO DAILY Miralax (Polyethylene Glycol 3350) 119 Gm Powder 17 Gm PO PRN DAILY PRN Multi Vitamin Daily (Multivitamin) 1 Each Tablet 1 Tab PO DAILY Milk Of Magnesia (Magnesium Hydroxide) 400 Mg/5 Ml Oral.susp 2,400 Mg PO PRN Q24HRS PRN Loratadine 10 Mg Tablet 10 Mg PO PRN Q24HRS PRN Loperamide (Loperamide Hcl) 2 Mg Tablet 2 Mg PO PRN Q2HR PRN MDD 16mg Loperamide (Loperamide Hcl) 1 Mg/7.5 Ml Liquid 2 Mg PO PRN Q2HR PRN MDD 16mg Levothyroxine Sodium 150 Mcg Tablet 150 Mcg PO DAILY07 Ibuprofen 400 Mg Tablet 400 Mg PO PRN Q4HRS PRN Hydrocerin Lotion (Mineral Oil/I-Prop Myr/Water) 472 Ml Lotion 1 Tiffany TP DAILY Lasix (Furosemide) 40 Mg Tablet 40 Mg PO BID92 Depakote Sprinkle (Divalproex Sodium) 125 Mg Cap.sprink 500 Mg PO QHS Depakote Sprinkle (Divalproex Sodium) 125 Mg Cap.sprink 250 Mg PO DAILY Calcium 600 + Vit D 400 Tablet (Calcium Carbonate/Vitamin D3) 1 Each Tablet 1 Tab PO DAILY Wellbutrin Sr (Bupropion Hcl) 150 Mg Tablet.er 150 Mg PO DAILY Atorvastatin Calcium 10 Mg Tablet 10 Mg PO QHS Tylenol (Acetaminophen) 325 Mg Tablet 650 Mg PO PRN Q6HRS PRN I have reviewed the current psychotropics carefully including drug interactions. Risk benefit ratio favors no change other than as noted in my dictated progress note. Diagnosis: Problems: (1) Schizoaffective disorder, bipolar type (2) Anxiety disorder (3) Impulse control disorder (4) Bipolar affective, mixed, sev w/ psych (5) Schizophrenia, disorganized, subchronic with acute exacerbation CHRIS العلي MD May 25, 2017 21:11
[2017-05-26] MEDS: LEVOTHYROXINE 150 MCG TABLET PO SCH (06:26)
[2017-05-26 07:11] VITALS: BP 99/57
[2017-05-26] MEDS: POTASSIUM CHLORIDE 10 MEQ TABLET.ER. PO SCH (09:50)
[2017-05-26] MEDS: MULTIVITAMIN with MINERAL TABLET. PO SCH (09:50)
[2017-05-26] MEDS: DIVALPROEX 125 MG CAP.SPRINK PO SCH ×2 (09:51→19:29)
[2017-05-26] MEDS: risperiDONE 1 MG TABLET. PO SCH ×2 (09:51→19:29)
[2017-05-26] MEDS: buPROPion SR 150 MG TABLET.SA PO SCH (09:51)
[2017-05-26] MEDS: NICOTINE 21MG PATCH. TD SCH (09:51)
[2017-05-26] MEDS: FUROSEMIDE 40 MG TABLET PO SCH ×2 (09:51→14:22)
[2017-05-26] MEDS: CALCIUM CARB/VIT D3 500/200 TABLET PO SCH (09:51)
[2017-05-26] MEDS: CHOLECALCIFEROL (VITAMIN D3) 1,000 UNIT TABLET PO SCH (09:51)
[2017-05-26] MEDS: MINERAL OIL/PETROLATUM TOPICAL CREAM 113GM JAR. TP SCH (09:52)
[2017-05-26] MEDS: NICOTINE POLACRILEX GUM 2 MG GUM. BC PRN (14:51)
[2017-05-26 15:45] VITALS: BP 106/74
[2017-05-26] MEDS: SENNOSIDES 8.6 MG TABLET PO SCH (19:29)
[2017-05-26] MEDS: QUEtiapine 100 MG TABLET. PO SCH (19:29)
[2017-05-26] MEDS: ATORVASTATIN CALCIUM 10 MG TABLET. PO SCH (19:29)
[2017-05-26] MEDS: traZODone 50 MG TABLET. PO SCH (19:31)
--- NOTE | 2017-05-26 20:59 | PDOC ---
Exam Note: Maulik Note: Please also refer to the separate dictated note~for this date of service dictated separately.~Patient seen individually. Discussed the patient with Nursing staff reviewed the chart.~Reviewed interim history and current functioning. Reviewed vital signs,~Labs/ Radiology~and current medications noted below. Continue current treatment with the changes noted in the dictated addendum note Assessment: Vital Signs: Vital Signs Date Time Temp Pulse Resp B/P (MAP) Pulse Ox O2 Delivery O2 Flow Rate FiO2 05/26/17 15:45 97.8 71 18 106/74 (85) 98 I&O Intake and Output 05/26/17 07:00 Intake Total 1680 ml Balance 1680 ml Intake Oral 1680 ml # Voids 2 Current Medications: Meds: Current Medications Multi-Ingredient Ointment (Analgesic [place]) 1 tiffany PRN QID PRN TP MUSCLE PAIN; Start 05/24/17 at 01:15 Al Hydroxide/Mg Hydroxide (Mylanta Plus Xs) 15 ml PRN AFTMEALHC PRN PO DYSPEPSIA; Start 05/24/17 at 01:15 Nicotine (Nicoderm Cq 21mg) 1 patch DAILY TD Last administered on 05/26/17at 09: 51; Start 05/24/17 at 09:00; Stop 05/26/17 at 14:25; Status DC Bupropion HCl (Wellbutrin Sr) 150 mg DAILY PO Last administered on 05/26/17at 09 :51; Start 05/24/17 at 09:00 Divalproex Sodium (Depakote Sprinkles) 250 mg DAILY PO Last administered on at 09:51; Start 05/24/17 at 09:00; Stop 05/26/17 at 19:20; Status DC Divalproex Sodium (Depakote Sprinkles) 500 mg QHS PO Last administered on at 20:43; Start 05/24/17 at 21:00; Stop 05/26/17 at 19:20; Status DC Quetiapine Fumarate (SEROquel) 100 mg QHS PO Last administered on 05/26/17at 19: 29; Start 05/24/17 at 21:00 Risperidone (RisperDAL) 3 mg BID PO Last administered on 05/26/17at 19:29; Start 05/24/17 at 09:00 Olanzapine (ZyPREXA ZYDIS) 5 mg PRN Q2HR PRN PO Psych; Start 05/24/17 at 01:15 Acetaminophen (Tylenol) 650 mg PRN Q6HRS PRN PO PAIN / TEMP; Start 05/24/17 at 01:30; Status UNV Atorvastatin Calcium (Lipitor) 10 mg QHS PO Last administered on 05/26/17 19: 29; Start 05/24/17 at 21:00 Vitamin D (Vitamin D3) 1,000 unit DAILY PO Last administered on 05/26/17 09:51 ; Start 05/24/17 at 09:00 Furosemide (Lasix) 40 mg BID92 PO Last administered on 05/26/17 14:22; Start 05/24/17 at 09:00 Guaifenesin (Robitussin Dm) 5 ml PRN Q6HRS PRN PO CONGESTION Last administered on 05/26/17 14:51; Start 05/24/17 at 01:30 Ibuprofen (Motrin) 400 mg PRN Q4HRS PRN PO MODERATE PAIN Last administered on 13:18; Start 05/24/17 at 01:30 Levothyroxine Sodium (Synthroid) 150 mcg DAILY07 PO Last administered on 06:26; Start 05/24/17 at 07:00 Magnesium Hydroxide (Milk Of Magnesia) 2,400 mg PRN Q24HRS PRN PO CONSTIPATION ; Start 05/24/17 at 01:30; Status UNV Polyethylene Glycol (miraLAX) 17 gm PRN DAILY PRN PO CONSTIPATION; Start at 01:30 Sennosides (Senna) 8.6 mg QHS PO Last administered on 05/26/17 19:29; Start at 21:00 Calcium Carbonate/ Glycine (Tums) 500 mg PRN Q4HRS PRN PO INDIGESTION; Start at 02:00 Calcium/Vitamin D (Oscal D 500mg/ 200uts) 1 tab DAILYWBKFT PO Last administered on 05/26/17at 09:51; Start 05/24/17 at 08:00 Loperamide HCl (Imodium) 2 mg PRN Q2MIN PRN PO DIARRHEA; Start 05/24/17 at 02: 00 Cetirizine HCl (ZyrTEC) 10 mg PRN DAILY PRN PO ALLERGIES; Start 05/24/17 at 09: 00 Multi-Ingred Cream/Lotion/Oil/ Oint (Hydrocerin) 1 tiffany DAILY TP Last administered on 05/26/17at 09:52; Start 05/24/17 at 09:00 Multivitamins/ Calcium (Thera-M Plus) 1 tab DAILY PO Last administered on at 09:50; Start 05/24/17 at 09:00 Potassium Chloride (Klor-Con) 10 meq DAILYWBKFT PO Last administered on at 09:50; Start 05/24/17 at 08:00 Acetaminophen (Tylenol) 650 mg PRN Q6HRS PRN PO PAIN / TEMP; Start 05/24/17 at 02:00 Magnesium Hydroxide (Milk Of Magnesia) 2,400 mg PRN Q24HRS PRN PO CONSTIPATION ; Start 05/24/17 at 02:00 Nicotine Polacrilex (Nicorette Gum) 2 mg PRN Q2HR PRN BC SMOKING CESSATION Last administered on 05/26/17at 14:51; Start 05/26/17 at 14:30 Divalproex Sodium (Depakote Sprinkles) 500 mg DAILY PO ; Start 05/27/17 at 09:00 Divalproex Sodium (Depakote Sprinkles) 750 mg QHS PO Last administered on at 19:29; Start 05/26/17 at 21:00 Trazodone HCl (Desyrel) 50 mg QHS PO Last administered on 05/26/17at 19:31; Start 05/26/17 at 21:00 Trazodone HCl (Desyrel) 50 mg PRN QHS PRN PO INSOMNIA; Start 05/26/17 at 19:15 Active Scripts Active Reported Vitamin D3 (Cholecalciferol (Vitamin D3)) 1,000 Unit Tablet 1,000 Unit PO DAILY Calcium (Calcium Carbonate) 500 Mg Tab.chew 500 Mg PO PRN Q4HRS PRN Senna Concentrate (Sennosides) 8.6 Mg Tablet 8.6 Mg PO QHS Guaifenesin Dm Syrup (Guaifenesin/Dextromethorphan) 5 Ml Syrup 5 Ml PO PRN Q6HRS PRN Robitussin Cough-Chest Dm Liq (Guaifenesin/Dextromethorphan) 237 Ml Liquid 237 Ml PO Risperdal (Risperidone) 3 Mg Tablet 3 Mg PO BID Seroquel (Quetiapine Fumarate) 200 Mg Tablet 200 Mg PO QHS Potassium Chloride 10 Meq Tablet.er 10 Meq PO DAILY Miralax (Polyethylene Glycol 3350) 119 Gm Powder 17 Gm PO PRN DAILY PRN Multi Vitamin Daily (Multivitamin) 1 Each Tablet 1 Tab PO DAILY Milk Of Magnesia (Magnesium Hydroxide) 400 Mg/5 Ml Oral.susp 2,400 Mg PO PRN Q24HRS PRN Loratadine 10 Mg Tablet 10 Mg PO PRN Q24HRS PRN Loperamide (Loperamide Hcl) 2 Mg Tablet 2 Mg PO PRN Q2HR PRN MDD 16mg Loperamide (Loperamide Hcl) 1 Mg/7.5 Ml Liquid 2 Mg PO PRN Q2HR PRN MDD 16mg Levothyroxine Sodium 150 Mcg Tablet 150 Mcg PO DAILY07 Ibuprofen 400 Mg Tablet 400 Mg PO PRN Q4HRS PRN Hydrocerin Lotion (Mineral Oil/I-Prop Myr/Water) 472 Ml Lotion 1 Tiffany TP DAILY Lasix (Furosemide) 40 Mg Tablet 40 Mg PO BID92 Depakote Sprinkle (Divalproex Sodium) 125 Mg Cap.sprink 500 Mg PO QHS Depakote Sprinkle (Divalproex Sodium) 125 Mg Cap.sprink 250 Mg PO DAILY Calcium 600 + Vit D 400 Tablet (Calcium Carbonate/Vitamin D3) 1 Each Tablet 1 Tab PO DAILY Wellbutrin Sr (Bupropion Hcl) 150 Mg Tablet.er 150 Mg PO DAILY Atorvastatin Calcium 10 Mg Tablet 10 Mg PO QHS Tylenol (Acetaminophen) 325 Mg Tablet 650 Mg PO PRN Q6HRS PRN I have reviewed the current psychotropics carefully including drug interactions. Risk benefit ratio favors no change other than as noted in my dictated progress note. Diagnosis: Problems: (1) Schizoaffective disorder, bipolar type (2) Anxiety disorder (3) Impulse control disorder (4) Bipolar affective, mixed, sev w/ psych (5) Schizophrenia, disorganized, subchronic with acute exacerbation CHRIS العلي MD May 26, 2017 20:59
--- NOTE | 2017-05-26 22:59 | PN ---
DATE: 05/25/2017 This late entry date of service 05/25/2017 covers elements not covered in my initial note 05/25/2017. SUBJECTIVE: I met with the patient in the evening of 05/25/2017. The patient is alert, oriented x 4, somewhat disorganized, at times paranoid, watching the nursing staff doing the charting quite suspicious, psychotic. REVIEW OF SYSTEMS: No CV, , pulmonary, eye, ENT system symptoms on review. MENTAL STATUS EXAM: Oriented is noted. Speech coherent, rapid at times. Abstraction fair, computation impaired, language function intact, attention span short. Mood and affect somewhat labile, still psychotic. LABORATORY DATA: Reviewed. IMPRESSION: Schizoaffective disorder, bipolar type, mixed with psychotic features, schizophrenia, chronic, undifferentiated with acute exacerbation. PLAN: Continue psychotropics mentioned in my initial note and Depakote has been adjusted. Follow labs level, adjust to reach a therapeutic level. CHRIS العلي MD DR: PATIENCE/ilia JOB#: [id number] / [id number]
[2017-05-27] MEDS: LEVOTHYROXINE 150 MCG TABLET PO SCH (05:56)
[2017-05-27 06:17] VITALS: BP 167/70
[2017-05-27] MEDS: risperiDONE 1 MG TABLET. PO SCH ×2 (07:51→20:05)
[2017-05-27] MEDS: CHOLECALCIFEROL (VITAMIN D3) 1,000 UNIT TABLET PO SCH (07:51)
[2017-05-27] MEDS: buPROPion SR 150 MG TABLET.SA PO SCH (07:51)
[2017-05-27] MEDS: POTASSIUM CHLORIDE 10 MEQ TABLET.ER. PO SCH (07:52)
[2017-05-27] MEDS: MINERAL OIL/PETROLATUM TOPICAL CREAM 113GM JAR. TP SCH (07:52)
[2017-05-27] MEDS: MULTIVITAMIN with MINERAL TABLET. PO SCH (07:52)
[2017-05-27] MEDS: FUROSEMIDE 40 MG TABLET PO SCH ×2 (07:52→13:02)
[2017-05-27] MEDS: CALCIUM CARB/VIT D3 500/200 TABLET PO SCH (07:52)
[2017-05-27] MEDS: DIVALPROEX 125 MG CAP.SPRINK PO SCH ×2 (07:56→20:05)
[2017-05-27] MEDS: IBUPROFEN 400 MG TABLET. PO PRN (13:02)
[2017-05-27 16:26] VITALS: BP 112/74
[2017-05-27] MEDS: SENNOSIDES 8.6 MG TABLET PO SCH (20:05)
[2017-05-27] MEDS: ATORVASTATIN CALCIUM 10 MG TABLET. PO SCH (20:05)
[2017-05-27] MEDS: traZODone 50 MG TABLET. PO SCH (20:05)
[2017-05-27] MEDS: QUEtiapine 100 MG TABLET. PO SCH (20:05)
[2017-05-27] MEDS: NICOTINE POLACRILEX GUM 2 MG GUM. BC PRN (20:41)
--- NOTE | 2017-05-27 21:19 | PDOC ---
Exam Note: Maulik Note: Please also refer to the separate dictated note~for this date of service dictated separately.~Patient seen individually. Discussed the patient with Nursing staff reviewed the chart.~Reviewed interim history and current functioning. Reviewed vital signs,~Labs/ Radiology~and current medications noted below. Continue current treatment with the changes noted in the dictated addendum note Assessment: Vital Signs: Vital Signs Date Time Temp Pulse Resp B/P (MAP) Pulse Ox O2 Delivery O2 Flow Rate FiO2 05/27/17 16:26 97.9 80 18 112/74 (87) 98 I&O Intake and Output 05/27/17 07:00 Intake Total 1560 ml Balance 1560 ml Intake Oral 1560 ml # Voids 2 Current Medications: Meds: Current Medications Multi-Ingredient Ointment (Analgesic [place]) 1 tiffany PRN QID PRN TP MUSCLE PAIN; Start 05/24/17 at 01:15 Al Hydroxide/Mg Hydroxide (Mylanta Plus Xs) 15 ml PRN AFTMEALHC PRN PO DYSPEPSIA; Start 05/24/17 at 01:15 Nicotine (Nicoderm Cq 21mg) 1 patch DAILY TD Last administered on 05/26/17at 09: 51; Start 05/24/17 at 09:00; Stop 05/26/17 at 14:25; Status DC Bupropion HCl (Wellbutrin Sr) 150 mg DAILY PO Last administered on 05/27/17at 07 :51; Start 05/24/17 at 09:00 Divalproex Sodium (Depakote Sprinkles) 250 mg DAILY PO Last administered on at 09:51; Start 05/24/17 at 09:00; Stop 05/26/17 at 19:20; Status DC Divalproex Sodium (Depakote Sprinkles) 500 mg QHS PO Last administered on at 20:43; Start 05/24/17 at 21:00; Stop 05/26/17 at 19:20; Status DC Quetiapine Fumarate (SEROquel) 100 mg QHS PO Last administered on 05/27/17at 20: 05; Start 05/24/17 at 21:00 Risperidone (RisperDAL) 3 mg BID PO Last administered on 05/27/17at 20:05; Start 05/24/17 at 09:00 Olanzapine (ZyPREXA ZYDIS) 5 mg PRN Q2HR PRN PO Psych; Start 05/24/17 at 01:15 Acetaminophen (Tylenol) 650 mg PRN Q6HRS PRN PO PAIN / TEMP; Start 05/24/17 at 01:30; Status UNV Atorvastatin Calcium (Lipitor) 10 mg QHS PO Last administered on 05/27/17 20: 05; Start 05/24/17 at 21:00 Vitamin D (Vitamin D3) 1,000 unit DAILY PO Last administered on 05/27/17 07:51 ; Start 05/24/17 at 09:00 Furosemide (Lasix) 40 mg BID92 PO Last administered on 05/27/17 13:02; Start 05/24/17 at 09:00 Guaifenesin (Robitussin Dm) 5 ml PRN Q6HRS PRN PO CONGESTION Last administered on 05/26/17 14:51; Start 05/24/17 at 01:30 Ibuprofen (Motrin) 400 mg PRN Q4HRS PRN PO MODERATE PAIN Last administered on 13:02; Start 05/24/17 at 01:30 Levothyroxine Sodium (Synthroid) 150 mcg DAILY07 PO Last administered on 05:56; Start 05/24/17 at 07:00 Magnesium Hydroxide (Milk Of Magnesia) 2,400 mg PRN Q24HRS PRN PO CONSTIPATION ; Start 05/24/17 at 01:30; Status UNV Polyethylene Glycol (miraLAX) 17 gm PRN DAILY PRN PO CONSTIPATION; Start at 01:30 Sennosides (Senna) 8.6 mg QHS PO Last administered on 05/27/17at 20:05; Start at 21:00 Calcium Carbonate/ Glycine (Tums) 500 mg PRN Q4HRS PRN PO INDIGESTION; Start at 02:00 Calcium/Vitamin D (Oscal D 500mg/ 200uts) 1 tab DAILYWBKFT PO Last administered on 05/27/17 07:52; Start 05/24/17 at 08:00 Loperamide HCl (Imodium) 2 mg PRN Q2MIN PRN PO DIARRHEA; Start 05/24/17 at 02: 00 Cetirizine HCl (ZyrTEC) 10 mg PRN DAILY PRN PO ALLERGIES; Start 05/24/17 at 09: 00 Multi-Ingred Cream/Lotion/Oil/ Oint (Hydrocerin) 1 tiffany DAILY TP Last administered on 05/27/17 07:52; Start 05/24/17 at 09:00 Multivitamins/ Calcium (Thera-M Plus) 1 tab DAILY PO Last administered on 07:52; Start 05/24/17 at 09:00 Potassium Chloride (Klor-Con) 10 meq DAILYWBKFT PO Last administered on 07:52; Start 05/24/17 at 08:00 Acetaminophen (Tylenol) 650 mg PRN Q6HRS PRN PO PAIN / TEMP; Start 05/24/17 at 02:00 Magnesium Hydroxide (Milk Of Magnesia) 2,400 mg PRN Q24HRS PRN PO CONSTIPATION ; Start 05/24/17 at 02:00 Nicotine Polacrilex (Nicorette Gum) 2 mg PRN Q2HR PRN BC SMOKING CESSATION Last administered on 05/27/17at 20:41; Start 05/26/17 at 14:30 Divalproex Sodium (Depakote Sprinkles) 500 mg DAILY PO Last administered on at 07:56; Start 05/27/17 at 09:00 Divalproex Sodium (Depakote Sprinkles) 750 mg QHS PO Last administered on at 20:05; Start 05/26/17 at 21:00 Trazodone HCl (Desyrel) 50 mg QHS PO Last administered on 05/27/17at 20:05; Start 05/26/17 at 21:00 Trazodone HCl (Desyrel) 50 mg PRN QHS PRN PO INSOMNIA; Start 05/26/17 at 19:15 Active Scripts Active Reported Vitamin D3 (Cholecalciferol (Vitamin D3)) 1,000 Unit Tablet 1,000 Unit PO DAILY Calcium (Calcium Carbonate) 500 Mg Tab.chew 500 Mg PO PRN Q4HRS PRN Senna Concentrate (Sennosides) 8.6 Mg Tablet 8.6 Mg PO QHS Guaifenesin Dm Syrup (Guaifenesin/Dextromethorphan) 5 Ml Syrup 5 Ml PO PRN Q6HRS PRN Robitussin Cough-Chest Dm Liq (Guaifenesin/Dextromethorphan) 237 Ml Liquid 237 Ml PO Risperdal (Risperidone) 3 Mg Tablet 3 Mg PO BID Seroquel (Quetiapine Fumarate) 200 Mg Tablet 200 Mg PO QHS Potassium Chloride 10 Meq Tablet.er 10 Meq PO DAILY Miralax (Polyethylene Glycol 3350) 119 Gm Powder 17 Gm PO PRN DAILY PRN Multi Vitamin Daily (Multivitamin) 1 Each Tablet 1 Tab PO DAILY Milk Of Magnesia (Magnesium Hydroxide) 400 Mg/5 Ml Oral.susp 2,400 Mg PO PRN Q24HRS PRN Loratadine 10 Mg Tablet 10 Mg PO PRN Q24HRS PRN Loperamide (Loperamide Hcl) 2 Mg Tablet 2 Mg PO PRN Q2HR PRN MDD 16mg Loperamide (Loperamide Hcl) 1 Mg/7.5 Ml Liquid 2 Mg PO PRN Q2HR PRN MDD 16mg Levothyroxine Sodium 150 Mcg Tablet 150 Mcg PO DAILY07 Ibuprofen 400 Mg Tablet 400 Mg PO PRN Q4HRS PRN Hydrocerin Lotion (Mineral Oil/I-Prop Myr/Water) 472 Ml Lotion 1 Tiffany TP DAILY Lasix (Furosemide) 40 Mg Tablet 40 Mg PO BID92 Depakote Sprinkle (Divalproex Sodium) 125 Mg Cap.sprink 500 Mg PO QHS Depakote Sprinkle (Divalproex Sodium) 125 Mg Cap.sprink 250 Mg PO DAILY Calcium 600 + Vit D 400 Tablet (Calcium Carbonate/Vitamin D3) 1 Each Tablet 1 Tab PO DAILY Wellbutrin Sr (Bupropion Hcl) 150 Mg Tablet.er 150 Mg PO DAILY Atorvastatin Calcium 10 Mg Tablet 10 Mg PO QHS Tylenol (Acetaminophen) 325 Mg Tablet 650 Mg PO PRN Q6HRS PRN I have reviewed the current psychotropics carefully including drug interactions. Risk benefit ratio favors no change other than as noted in my dictated progress note. Diagnosis: Problems: (1) Schizoaffective disorder, bipolar type (2) Anxiety disorder (3) Impulse control disorder (4) Bipolar affective, mixed, sev w/ psych (5) Schizophrenia, disorganized, subchronic with acute exacerbation CHRIS العلي MD May 27, 2017 21:19
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
[2017-05-28] MEDS: LEVOTHYROXINE 150 MCG TABLET PO SCH (04:27)
[2017-05-28 05:52] VITALS: BP 120/62
[2017-05-28] MEDS: buPROPion SR 150 MG TABLET.SA PO SCH (08:35)
[2017-05-28] MEDS: CALCIUM CARB/VIT D3 500/200 TABLET PO SCH (08:35)
[2017-05-28] MEDS: DIVALPROEX 125 MG CAP.SPRINK PO SCH ×2 (08:35→19:39)
[2017-05-28] MEDS: risperiDONE 1 MG TABLET. PO SCH ×2 (08:35→19:39)
[2017-05-28] MEDS: CHOLECALCIFEROL (VITAMIN D3) 1,000 UNIT TABLET PO SCH (08:35)
[2017-05-28] MEDS: MULTIVITAMIN with MINERAL TABLET. PO SCH (08:35)
[2017-05-28] MEDS: FUROSEMIDE 40 MG TABLET PO SCH ×2 (08:35→13:59)
[2017-05-28] MEDS: POTASSIUM CHLORIDE 10 MEQ TABLET.ER. PO SCH (08:36)
[2017-05-28] MEDS: MINERAL OIL/PETROLATUM TOPICAL CREAM 113GM JAR. TP SCH (08:36)
[2017-05-28] MEDS ORDERED: FAMOTIDINE 20 MG/2 ML VIAL ONE (11:59)
[2017-05-28 16:19] VITALS: BP 104/62
[2017-05-28] MEDS: SENNOSIDES 8.6 MG TABLET PO SCH (19:38)
[2017-05-28] MEDS: QUEtiapine 100 MG TABLET. PO SCH (19:38)
[2017-05-28] MEDS: ATORVASTATIN CALCIUM 10 MG TABLET. PO SCH (19:38)
[2017-05-28] MEDS: traZODone 50 MG TABLET. PO SCH (19:39)
[2017-05-28] MEDS: ACETAMINOPHEN 325 MG TABLET PO PRN (19:48)
--- NOTE | 2017-05-28 21:04 | PDOC ---
Exam Note: Maulik Note: Please also refer to the separate dictated note~for this date of service dictated separately.~Patient seen individually. Discussed the patient with Nursing staff reviewed the chart.~Reviewed interim history and current functioning. Reviewed vital signs,~Labs/ Radiology~and current medications noted below. Continue current treatment with the changes noted in the dictated addendum note Assessment: Vital Signs: Vital Signs Date Time Temp Pulse Resp B/P (MAP) Pulse Ox O2 Delivery O2 Flow Rate FiO2 05/28/17 16:19 97.9 87 12 104/62 (76) 97 Room Air I&O Intake and Output 05/28/17 07:00 Intake Total 1080 ml Balance 1080 ml Intake Oral 1080 ml Current Medications: Meds: Current Medications Multi-Ingredient Ointment (Analgesic [place]) 1 tiffany PRN QID PRN TP MUSCLE PAIN; Start 05/24/17 at 01:15 Al Hydroxide/Mg Hydroxide (Mylanta Plus Xs) 15 ml PRN AFTMEALHC PRN PO DYSPEPSIA; Start 05/24/17 at 01:15 Nicotine (Nicoderm Cq 21mg) 1 patch DAILY TD Last administered on 05/26/17at 09: 51; Start 05/24/17 at 09:00; Stop 05/26/17 at 14:25; Status DC Bupropion HCl (Wellbutrin Sr) 150 mg DAILY PO Last administered on 05/28/17at 08 :35; Start 05/24/17 at 09:00 Divalproex Sodium (Depakote Sprinkles) 250 mg DAILY PO Last administered on at 09:51; Start 05/24/17 at 09:00; Stop 05/26/17 at 19:20; Status DC Divalproex Sodium (Depakote Sprinkles) 500 mg QHS PO Last administered on at 20:43; Start 05/24/17 at 21:00; Stop 05/26/17 at 19:20; Status DC Quetiapine Fumarate (SEROquel) 100 mg QHS PO Last administered on 05/28/17at 19: 38; Start 05/24/17 at 21:00 Risperidone (RisperDAL) 3 mg BID PO Last administered on 05/28/17at 19:39; Start 05/24/17 at 09:00 Olanzapine (ZyPREXA ZYDIS) 5 mg PRN Q2HR PRN PO Psych; Start 05/24/17 at 01:15 Acetaminophen (Tylenol) 650 mg PRN Q6HRS PRN PO PAIN / TEMP; Start 05/24/17 at 01:30; Status UNV Atorvastatin Calcium (Lipitor) 10 mg QHS PO Last administered on 05/28/17 19: 38; Start 05/24/17 at 21:00 Vitamin D (Vitamin D3) 1,000 unit DAILY PO Last administered on 05/28/17 08:35 ; Start 05/24/17 at 09:00 Furosemide (Lasix) 40 mg BID92 PO Last administered on 05/28/17 13:59; Start 05/24/17 at 09:00 Guaifenesin (Robitussin Dm) 5 ml PRN Q6HRS PRN PO CONGESTION Last administered on 05/26/17 14:51; Start 05/24/17 at 01:30 Ibuprofen (Motrin) 400 mg PRN Q4HRS PRN PO MODERATE PAIN Last administered on 13:02; Start 05/24/17 at 01:30 Levothyroxine Sodium (Synthroid) 150 mcg DAILY07 PO Last administered on 04:27; Start 05/24/17 at 07:00; Stop 05/28/17 at 13:46; Status DC Magnesium Hydroxide (Milk Of Magnesia) 2,400 mg PRN Q24HRS PRN PO CONSTIPATION ; Start 05/24/17 at 01:30; Status UNV Polyethylene Glycol (miraLAX) 17 gm PRN DAILY PRN PO CONSTIPATION; Start at 01:30 Sennosides (Senna) 8.6 mg QHS PO Last administered on 05/28/17 19:38; Start at 21:00 Calcium Carbonate/ Glycine (Tums) 500 mg PRN Q4HRS PRN PO INDIGESTION; Start at 02:00 Calcium/Vitamin D (Oscal D 500mg/ 200uts) 1 tab DAILYWBKFT PO Last administered on 05/28/17at 08:35; Start 05/24/17 at 08:00 Loperamide HCl (Imodium) 2 mg PRN Q2MIN PRN PO DIARRHEA; Start 05/24/17 at 02: 00 Cetirizine HCl (ZyrTEC) 10 mg PRN DAILY PRN PO ALLERGIES; Start 05/24/17 at 09: 00 Multi-Ingred Cream/Lotion/Oil/ Oint (Hydrocerin) 1 tiffany DAILY TP Last administered on 05/28/17 08:36; Start 05/24/17 at 09:00 Multivitamins/ Calcium (Thera-M Plus) 1 tab DAILY PO Last administered on at 08:35; Start 05/24/17 at 09:00 Potassium Chloride (Klor-Con) 10 meq DAILYWBKFT PO Last administered on at 08:36; Start 05/24/17 at 08:00 Acetaminophen (Tylenol) 650 mg PRN Q6HRS PRN PO PAIN / TEMP Last administered on 05/28/17at 19:48; Start 05/24/17 at 02:00 Magnesium Hydroxide (Milk Of Magnesia) 2,400 mg PRN Q24HRS PRN PO CONSTIPATION ; Start 05/24/17 at 02:00 Nicotine Polacrilex (Nicorette Gum) 2 mg PRN Q2HR PRN BC SMOKING CESSATION Last administered on 05/27/17at 20:41; Start 05/26/17 at 14:30 Divalproex Sodium (Depakote Sprinkles) 500 mg DAILY PO Last administered on at 08:35; Start 05/27/17 at 09:00 Divalproex Sodium (Depakote Sprinkles) 750 mg QHS PO Last administered on at 19:39; Start 05/26/17 at 21:00 Trazodone HCl (Desyrel) 50 mg QHS PO Last administered on 05/28/17 19:39; Start 05/26/17 at 21:00 Trazodone HCl (Desyrel) 50 mg PRN QHS PRN PO INSOMNIA; Start 05/26/17 at 19:15 Famotidine (Pepcid Vial) 20 mg STK-MED ONCE .ROUTE ; Start 05/28/17 at 11:59; Stop 05/28/17 at 12:00; Status DC Levothyroxine Sodium (Synthroid) 150 mcg DAILY06 PO ; Start 05/29/17 at 06:00 Active Scripts Active Reported Vitamin D3 (Cholecalciferol (Vitamin D3)) 1,000 Unit Tablet 1,000 Unit PO DAILY Calcium (Calcium Carbonate) 500 Mg Tab.chew 500 Mg PO PRN Q4HRS PRN Senna Concentrate (Sennosides) 8.6 Mg Tablet 8.6 Mg PO QHS Guaifenesin Dm Syrup (Guaifenesin/Dextromethorphan) 5 Ml Syrup 5 Ml PO PRN Q6HRS PRN Robitussin Cough-Chest Dm Liq (Guaifenesin/Dextromethorphan) 237 Ml Liquid 237 Ml PO Risperdal (Risperidone) 3 Mg Tablet 3 Mg PO BID Seroquel (Quetiapine Fumarate) 200 Mg Tablet 200 Mg PO QHS Potassium Chloride 10 Meq Tablet.er 10 Meq PO DAILY Miralax (Polyethylene Glycol 3350) 119 Gm Powder 17 Gm PO PRN DAILY PRN Multi Vitamin Daily (Multivitamin) 1 Each Tablet 1 Tab PO DAILY Milk Of Magnesia (Magnesium Hydroxide) 400 Mg/5 Ml Oral.susp 2,400 Mg PO PRN Q24HRS PRN Loratadine 10 Mg Tablet 10 Mg PO PRN Q24HRS PRN Loperamide (Loperamide Hcl) 2 Mg Tablet 2 Mg PO PRN Q2HR PRN MDD 16mg Loperamide (Loperamide Hcl) 1 Mg/7.5 Ml Liquid 2 Mg PO PRN Q2HR PRN MDD 16mg Levothyroxine Sodium 150 Mcg Tablet 150 Mcg PO DAILY07 Ibuprofen 400 Mg Tablet 400 Mg PO PRN Q4HRS PRN Hydrocerin Lotion (Mineral Oil/I-Prop Myr/Water) 472 Ml Lotion 1 Tiffany TP DAILY Lasix (Furosemide) 40 Mg Tablet 40 Mg PO BID92 Depakote Sprinkle (Divalproex Sodium) 125 Mg Cap.sprink 500 Mg PO QHS Depakote Sprinkle (Divalproex Sodium) 125 Mg Cap.sprink 250 Mg PO DAILY Calcium 600 + Vit D 400 Tablet (Calcium Carbonate/Vitamin D3) 1 Each Tablet 1 Tab PO DAILY Wellbutrin Sr (Bupropion Hcl) 150 Mg Tablet.er 150 Mg PO DAILY Atorvastatin Calcium 10 Mg Tablet 10 Mg PO QHS Tylenol (Acetaminophen) 325 Mg Tablet 650 Mg PO PRN Q6HRS PRN I have reviewed the current psychotropics carefully including drug interactions. Risk benefit ratio favors no change other than as noted in my dictated progress note. Diagnosis: Problems: (1) Schizoaffective disorder, bipolar type (2) Anxiety disorder (3) Impulse control disorder (4) Bipolar affective, mixed, sev w/ psych (5) Schizophrenia, disorganized, subchronic with acute exacerbation CHRIS العلي MD May 28, 2017 21:04
[2017-05-29 05:58] VITALS: BP 112/68
[2017-05-29] MEDS: LEVOTHYROXINE 150 MCG TABLET PO SCH (06:19)
[2017-05-29 09:29] LABS: BASO % 1 % (0-3); EOS # 0.2 x10^3/uL (0.0-0.7); EOS % 5 % (0-3); HEMATOCRIT 35.5 % (36.0-47.0); HEMOGLOBIN 12.4 g/dL (12.0-15.5); LYMPH # 1.1 x10^3/uL (1.0-4.8); LYMPH % 28 % (24-48); MEAN CORPUSCULAR HEMOGLOBIN 32 pg (25-35); MEAN CORPUSCULAR HGB CONC 35 g/dL (31-37); MEAN CORPUSCULAR VOLUME 92 fL (79-100); MONO # 0.6 x10^3/uL (0.0-1.1); MONO % 15 % (0-9); NEUT # 2.1 x10^3uL (1.8-7.7); NEUT % 52 % (31-73); PLATELET COUNT 307 x10^3/uL (140-400); RED BLOOD COUNT 3.87 x10^6/uL (3.50-5.40); RED CELL DISTRIBUTION WIDTH 12.8 % (11.5-14.5); WHITE BLOOD COUNT 4.1 x10^3/uL (4.0-11.0)
[2017-05-29 09:47] LABS: ALBUMIN 3.2 g/dL (3.4-5.0); ALBUMIN/GLOBULIN RATIO 1.1 (1.0-1.7); CALCIUM 9.3 mg/dL (8.5-10.1); CREATININE 0.6 mg/dL (0.6-1.0); GFR 100.3; POTASSIUM 4.1 mmol/L (3.5-5.1); TOTAL BILIRUBIN 0.3 mg/dL (0.2-1.0); TOTAL PROTEIN 6.2 g/dL (6.4-8.2)
[2017-05-29 09:48] LABS: VAL ACID 65 mcg/mL (50-100)
[2017-05-29] MEDS: DIVALPROEX 125 MG CAP.SPRINK PO SCH ×2 (10:25→19:41)
[2017-05-29] MEDS: CHOLECALCIFEROL (VITAMIN D3) 1,000 UNIT TABLET PO SCH (10:26)
[2017-05-29] MEDS: buPROPion SR 150 MG TABLET.SA PO SCH (10:26)
[2017-05-29] MEDS: MULTIVITAMIN with MINERAL TABLET. PO SCH (10:26)
[2017-05-29] MEDS: FUROSEMIDE 40 MG TABLET PO SCH ×2 (10:26→14:36)
[2017-05-29] MEDS: CALCIUM CARB/VIT D3 500/200 TABLET PO SCH (10:26)
[2017-05-29] MEDS: risperiDONE 1 MG TABLET. PO SCH ×2 (10:27→19:42)
[2017-05-29] MEDS: POTASSIUM CHLORIDE 10 MEQ TABLET.ER. PO SCH (10:27)
[2017-05-29] MEDS: MINERAL OIL/PETROLATUM TOPICAL CREAM 113GM JAR. TP SCH (10:28)
[2017-05-29 16:17] VITALS: BP 107/61
[2017-05-29] MEDS: traZODone 50 MG TABLET. PO SCH (19:41)
[2017-05-29] MEDS: ATORVASTATIN CALCIUM 10 MG TABLET. PO SCH (19:41)
[2017-05-29] MEDS: SENNOSIDES 8.6 MG TABLET PO SCH (19:42)
[2017-05-29] MEDS: QUEtiapine 100 MG TABLET. PO SCH (19:42)
--- NOTE | 2017-05-29 19:55 | PN ---
DATE: 05/27/2017 This is a late entry for 05/27/2017 and covers elements not covered in my initial note of 05/27/2017. SUBJECTIVE: The patient has been less anxious, labile. At times, no overt behaviors, other times, she is more attention seeking and anxious per nursing report. REVIEW OF SYSTEMS: No CV, , pulmonary, eye, ENT system symptoms on review. MENTAL STATUS EXAM: Oriented to herself and situation. Speech is coherent at times, monosyllabic. Abstraction fair, computation impaired, language function intact, attention span short. Mood and affect, lability is improved. LABORATORY DATA: Reviewed. IMPRESSION: Schizoaffective disorder, bipolar type, mixed with psychotic features. Rest unchanged. PLAN: Continue current psychotropics. Depakote was increased. Repeat labs on 05/29/2017, to follow valproic acid. MAN Wan العلي MD DR: PATIECNE/ilia JOB#: [id number] / [id number]
--- NOTE | 2017-05-29 20:55 | PDOC ---
Exam Note: Maulik Note: Please also refer to the separate dictated note~for this date of service dictated separately.~Patient seen individually. Discussed the patient with Nursing staff reviewed the chart.~Reviewed interim history and current functioning. Reviewed vital signs,~Labs/ Radiology~and current medications noted below. Continue current treatment with the changes noted in the dictated addendum note Assessment: Vital Signs: Vital Signs Date Time Temp Pulse Resp B/P (MAP) Pulse Ox O2 Delivery O2 Flow Rate FiO2 05/29/17 16:17 98.2 84 16 107/61 (76) 94 05/28/17 16:19 Room Air I&O Intake and Output 05/29/17 07:00 Intake Total 1080 ml Balance 1080 ml Intake Oral 1080 ml # Bowel Movements 2 Labs: Laboratory Tests Test 05/29/17 09:04 White Blood Count 4.1 x10^3/uL (4.0-11.0) Red Blood Count 3.87 x10^6/uL (3.50-5.40) Hemoglobin 12.4 g/dL (12.0-15.5) Hematocrit 35.5 % (36.0-47.0) L Mean Corpuscular Volume 92 fL (79-100) Mean Corpuscular Hemoglobin 32 pg (25-35) Mean Corpuscular Hemoglobin Concent 35 g/dL (31-37) Red Cell Distribution Width 12.8 % (11.5-14.5) Platelet Count 307 x10^3/uL (140-400) Neutrophils (%) (Auto) 52 % (31-73) Lymphocytes (%) (Auto) 28 % (24-48) Monocytes (%) (Auto) 15 % (0-9) H Eosinophils (%) (Auto) 5 % (0-3) H Basophils (%) (Auto) 1 % (0-3) Neutrophils # (Auto) 2.1 x10^3uL (1.8-7.7) Lymphocytes # (Auto) 1.1 x10^3/uL (1.0-4.8) Monocytes # (Auto) 0.6 x10^3/uL (0.0-1.1) Eosinophils # (Auto) 0.2 x10^3/uL (0.0-0.7) Basophils # (Auto) 0.0 x10^3/uL (0.0-0.2) Sodium Level 136 mmol/L (136-145) Potassium Level 4.1 mmol/L (3.5-5.1) Chloride Level 98 mmol/L (98-107) Carbon Dioxide Level 32 mmol/L (21-32) Anion Gap 6 (6-14) Blood Urea Nitrogen 8 mg/dL (7-20) Creatinine 0.6 mg/dL (0.6-1.0) Estimated GFR (Cockcroft-Gault) 100.3 BUN/Creatinine Ratio 13 (6-20) Glucose Level 108 mg/dL (70-99) H Calcium Level 9.3 mg/dL (8.5-10.1) Total Bilirubin 0.3 mg/dL (0.2-1.0) Aspartate Amino Transferase (AST) 10 U/L (15-37) L Alanine Aminotransferase (ALT) 15 U/L (14-59) Alkaline Phosphatase 59 U/L (46-116) Total Protein 6.2 g/dL (6.4-8.2) L Albumin 3.2 g/dL (3.4-5.0) L Albumin/Globulin Ratio 1.1 (1.0-1.7) Valproic Acid Level 65 mcg/mL (50-100) Valproic Acid Last Dose Date 05/28/2017 Valproic Acid Last Dose Time 2100 Current Medications: Meds: Current Medications Multi-Ingredient Ointment (Analgesic [place]) 1 tiffany PRN QID PRN TP MUSCLE PAIN; Start 05/24/17 at 01:15 Al Hydroxide/Mg Hydroxide (Mylanta Plus Xs) 15 ml PRN AFTMEALHC PRN PO DYSPEPSIA; Start 05/24/17 at 01:15 Nicotine (Nicoderm Cq 21mg) 1 patch DAILY TD Last administered on 05/26/17at 09: 51; Start 05/24/17 at 09:00; Stop 05/26/17 at 14:25; Status DC Bupropion HCl (Wellbutrin Sr) 150 mg DAILY PO Last administered on 05/29/17at 10 :26; Start 05/24/17 at 09:00 Divalproex Sodium (Depakote Sprinkles) 250 mg DAILY PO Last administered on at 09:51; Start 05/24/17 at 09:00; Stop 05/26/17 at 19:20; Status DC Divalproex Sodium (Depakote Sprinkles) 500 mg QHS PO Last administered on 20:43; Start 05/24/17 at 21:00; Stop 05/26/17 at 19:20; Status DC Quetiapine Fumarate (SEROquel) 100 mg QHS PO Last administered on 05/29/17 19: 42; Start 05/24/17 at 21:00 Risperidone (RisperDAL) 3 mg BID PO Last administered on 05/29/17 19:42; Start 05/24/17 at 09:00 Olanzapine (ZyPREXA ZYDIS) 5 mg PRN Q2HR PRN PO Psych; Start 05/24/17 at 01:15 Acetaminophen (Tylenol) 650 mg PRN Q6HRS PRN PO PAIN / TEMP; Start 05/24/17 at 01:30; Status UNV Atorvastatin Calcium (Lipitor) 10 mg QHS PO Last administered on 05/29/17 19: 41; Start 05/24/17 at 21:00 Vitamin D (Vitamin D3) 1,000 unit DAILY PO Last administered on 05/29/17 10:26 ; Start 05/24/17 at 09:00 Furosemide (Lasix) 40 mg BID92 PO Last administered on 05/29/17 14:36; Start 05/24/17 at 09:00 Guaifenesin (Robitussin Dm) 5 ml PRN Q6HRS PRN PO CONGESTION Last administered on 05/26/17 14:51; Start 05/24/17 at 01:30 Ibuprofen (Motrin) 400 mg PRN Q4HRS PRN PO MODERATE PAIN Last administered on at 13:02; Start 05/24/17 at 01:30 Levothyroxine Sodium (Synthroid) 150 mcg DAILY07 PO Last administered on 04:27; Start 05/24/17 at 07:00; Stop 05/28/17 at 13:46; Status DC Magnesium Hydroxide (Milk Of Magnesia) 2,400 mg PRN Q24HRS PRN PO CONSTIPATION ; Start 05/24/17 at 01:30; Status UNV Polyethylene Glycol (miraLAX) 17 gm PRN DAILY PRN PO CONSTIPATION; Start at 01:30 Sennosides (Senna) 8.6 mg QHS PO Last administered on 05/29/17 19:42; Start at 21:00 Calcium Carbonate/ Glycine (Tums) 500 mg PRN Q4HRS PRN PO INDIGESTION; Start at 02:00 Calcium/Vitamin D (Oscal D 500mg/ 200uts) 1 tab DAILYWBKFT PO Last administered on 05/29/17 10:26; Start 05/24/17 at 08:00 Loperamide HCl (Imodium) 2 mg PRN Q2MIN PRN PO DIARRHEA; Start 05/24/17 at 02: 00 Cetirizine HCl (ZyrTEC) 10 mg PRN DAILY PRN PO ALLERGIES; Start 05/24/17 at 09: 00 Multi-Ingred Cream/Lotion/Oil/ Oint (Hydrocerin) 1 tiffany DAILY TP Last administered on 05/29/17 10:28; Start 05/24/17 at 09:00 Multivitamins/ Calcium (Thera-M Plus) 1 tab DAILY PO Last administered on 10:26; Start 05/24/17 at 09:00 Potassium Chloride (Klor-Con) 10 meq DAILYWBKFT PO Last administered on 10:27; Start 05/24/17 at 08:00 Acetaminophen (Tylenol) 650 mg PRN Q6HRS PRN PO PAIN / TEMP Last administered on 05/28/17 19:48; Start 05/24/17 at 02:00 Magnesium Hydroxide (Milk Of Magnesia) 2,400 mg PRN Q24HRS PRN PO CONSTIPATION ; Start 05/24/17 at 02:00 Nicotine Polacrilex (Nicorette Gum) 2 mg PRN Q2HR PRN BC SMOKING CESSATION Last administered on 05/27/17 20:41; Start 05/26/17 at 14:30 Divalproex Sodium (Depakote Sprinkles) 500 mg DAILY PO Last administered on 10:25; Start 05/27/17 at 09:00 Divalproex Sodium (Depakote Sprinkles) 750 mg QHS PO Last administered on at 19:41; Start 05/26/17 at 21:00 Trazodone HCl (Desyrel) 50 mg QHS PO Last administered on 05/29/17at 19:41; Start 05/26/17 at 21:00 Trazodone HCl (Desyrel) 50 mg PRN QHS PRN PO INSOMNIA; Start 05/26/17 at 19:15 Famotidine (Pepcid Vial) 20 mg STK-MED ONCE .ROUTE ; Start 05/28/17 at 11:59; Stop 05/28/17 at 12:00; Status DC Levothyroxine Sodium (Synthroid) 150 mcg DAILY06 PO Last administered on at 06:19; Start 05/29/17 at 06:00 Active Scripts Active Reported Vitamin D3 (Cholecalciferol (Vitamin D3)) 1,000 Unit Tablet 1,000 Unit PO DAILY Calcium (Calcium Carbonate) 500 Mg Tab.chew 500 Mg PO PRN Q4HRS PRN Senna Concentrate (Sennosides) 8.6 Mg Tablet 8.6 Mg PO QHS Guaifenesin Dm Syrup (Guaifenesin/Dextromethorphan) 5 Ml Syrup 5 Ml PO PRN Q6HRS PRN Robitussin Cough-Chest Dm Liq (Guaifenesin/Dextromethorphan) 237 Ml Liquid 237 Ml PO Risperdal (Risperidone) 3 Mg Tablet 3 Mg PO BID Seroquel (Quetiapine Fumarate) 200 Mg Tablet 200 Mg PO QHS Potassium Chloride 10 Meq Tablet.er 10 Meq PO DAILY Miralax (Polyethylene Glycol 3350) 119 Gm Powder 17 Gm PO PRN DAILY PRN Multi Vitamin Daily (Multivitamin) 1 Each Tablet 1 Tab PO DAILY Milk Of Magnesia (Magnesium Hydroxide) 400 Mg/5 Ml Oral.susp 2,400 Mg PO PRN Q24HRS PRN Loratadine 10 Mg Tablet 10 Mg PO PRN Q24HRS PRN Loperamide (Loperamide Hcl) 2 Mg Tablet 2 Mg PO PRN Q2HR PRN MDD 16mg Loperamide (Loperamide Hcl) 1 Mg/7.5 Ml Liquid 2 Mg PO PRN Q2HR PRN MDD 16mg Levothyroxine Sodium 150 Mcg Tablet 150 Mcg PO DAILY07 Ibuprofen 400 Mg Tablet 400 Mg PO PRN Q4HRS PRN Hydrocerin Lotion (Mineral Oil/I-Prop Myr/Water) 472 Ml Lotion 1 Tiffany TP DAILY Lasix (Furosemide) 40 Mg Tablet 40 Mg PO BID92 Depakote Sprinkle (Divalproex Sodium) 125 Mg Cap.sprink 500 Mg PO QHS Depakote Sprinkle (Divalproex Sodium) 125 Mg Cap.sprink 250 Mg PO DAILY Calcium 600 + Vit D 400 Tablet (Calcium Carbonate/Vitamin D3) 1 Each Tablet 1 Tab PO DAILY Wellbutrin Sr (Bupropion Hcl) 150 Mg Tablet.er 150 Mg PO DAILY Atorvastatin Calcium 10 Mg Tablet 10 Mg PO QHS Tylenol (Acetaminophen) 325 Mg Tablet 650 Mg PO PRN Q6HRS PRN I have reviewed the current psychotropics carefully including drug interactions. Risk benefit ratio favors no change other than as noted in my dictated progress note. Diagnosis: Problems: (1) Schizoaffective disorder, bipolar type (2) Anxiety disorder (3) Impulse control disorder (4) Bipolar affective, mixed, sev w/ psych (5) Schizophrenia, disorganized, subchronic with acute exacerbation CHRIS العلي MD May 29, 2017 20:55
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
[2017-05-30] MEDS: LEVOTHYROXINE 150 MCG TABLET PO SCH ×2 (05:43→08:01)
[2017-05-30 05:56] VITALS: BP 128/53
[2017-05-30] MEDS: FUROSEMIDE 40 MG TABLET PO SCH ×2 (08:00→13:10)
[2017-05-30] MEDS: CALCIUM CARB/VIT D3 500/200 TABLET PO SCH (08:00)
[2017-05-30] MEDS: DIVALPROEX 125 MG CAP.SPRINK PO SCH ×2 (08:01→20:54)
[2017-05-30] MEDS: MULTIVITAMIN with MINERAL TABLET. PO SCH (08:01)
[2017-05-30] MEDS: POTASSIUM CHLORIDE 10 MEQ TABLET.ER. PO SCH (08:01)
[2017-05-30] MEDS: buPROPion SR 150 MG TABLET.SA PO SCH (08:01)
[2017-05-30] MEDS: CHOLECALCIFEROL (VITAMIN D3) 1,000 UNIT TABLET PO SCH (08:01)
[2017-05-30] MEDS: MINERAL OIL/PETROLATUM TOPICAL CREAM 113GM JAR. TP SCH (08:02)
[2017-05-30] MEDS: risperiDONE 1 MG TABLET. PO SCH ×2 (09:00→20:52)
[2017-05-30 16:15] VITALS: BP 117/54
[2017-05-30] MEDS: QUEtiapine 100 MG TABLET. PO SCH (20:51)
[2017-05-30] MEDS: SENNOSIDES 8.6 MG TABLET PO SCH (20:53)
[2017-05-30] MEDS: ATORVASTATIN CALCIUM 10 MG TABLET. PO SCH (20:53)
[2017-05-30] MEDS: traZODone 100 MG TABLET. PO SCH (20:56)
--- NOTE | 2017-05-30 22:38 | PDOC ---
Exam Note: Maulik Note: Please also refer to the separate dictated note~for this date of service dictated separately.~Patient seen individually. Discussed the patient with Nursing staff reviewed the chart.~Reviewed interim history and current functioning. Reviewed vital signs,~Labs/ Radiology~and current medications noted below. Continue current treatment with the changes noted in the dictated addendum note Assessment: Vital Signs: Vital Signs Date Time Temp Pulse Resp B/P (MAP) Pulse Ox O2 Delivery O2 Flow Rate FiO2 05/30/17 16:15 98.1 80 16 117/54 (75) 100 Room Air I&O Intake and Output 05/30/17 07:00 Intake Total 1560 ml Balance 1560 ml Intake Oral 1560 ml Current Medications: Meds: Current Medications Multi-Ingredient Ointment (Analgesic [place]) 1 tiffany PRN QID PRN TP MUSCLE PAIN; Start 05/24/17 at 01:15 Al Hydroxide/Mg Hydroxide (Mylanta Plus Xs) 15 ml PRN AFTMEALHC PRN PO DYSPEPSIA; Start 05/24/17 at 01:15 Nicotine (Nicoderm Cq 21mg) 1 patch DAILY TD Last administered on 05/26/17at 09: 51; Start 05/24/17 at 09:00; Stop 05/26/17 at 14:25; Status DC Bupropion HCl (Wellbutrin Sr) 150 mg DAILY PO Last administered on 05/30/17at 08 :01; Start 05/24/17 at 09:00 Divalproex Sodium (Depakote Sprinkles) 250 mg DAILY PO Last administered on at 09:51; Start 05/24/17 at 09:00; Stop 05/26/17 at 19:20; Status DC Divalproex Sodium (Depakote Sprinkles) 500 mg QHS PO Last administered on at 20:43; Start 05/24/17 at 21:00; Stop 05/26/17 at 19:20; Status DC Quetiapine Fumarate (SEROquel) 100 mg QHS PO Last administered on 05/30/17at 20: 51; Start 05/24/17 at 21:00 Risperidone (RisperDAL) 3 mg BID PO Last administered on 05/30/17at 20:52; Start 05/24/17 at 09:00 Olanzapine (ZyPREXA ZYDIS) 5 mg PRN Q2HR PRN PO Psych; Start 05/24/17 at 01:15 Acetaminophen (Tylenol) 650 mg PRN Q6HRS PRN PO PAIN / TEMP; Start 05/24/17 at 01:30; Status UNV Atorvastatin Calcium (Lipitor) 10 mg QHS PO Last administered on 05/30/17 20: 53; Start 05/24/17 at 21:00 Vitamin D (Vitamin D3) 1,000 unit DAILY PO Last administered on 05/30/17 08:01 ; Start 05/24/17 at 09:00 Furosemide (Lasix) 40 mg BID92 PO Last administered on 05/30/17 13:10; Start 05/24/17 at 09:00 Guaifenesin (Robitussin Dm) 5 ml PRN Q6HRS PRN PO CONGESTION Last administered on 05/26/17 14:51; Start 05/24/17 at 01:30 Ibuprofen (Motrin) 400 mg PRN Q4HRS PRN PO MODERATE PAIN Last administered on 13:02; Start 05/24/17 at 01:30 Levothyroxine Sodium (Synthroid) 150 mcg DAILY07 PO Last administered on 04:27; Start 05/24/17 at 07:00; Stop 05/28/17 at 13:46; Status DC Magnesium Hydroxide (Milk Of Magnesia) 2,400 mg PRN Q24HRS PRN PO CONSTIPATION ; Start 05/24/17 at 01:30; Status UNV Polyethylene Glycol (miraLAX) 17 gm PRN DAILY PRN PO CONSTIPATION; Start at 01:30 Sennosides (Senna) 8.6 mg QHS PO Last administered on 05/30/17at 20:53; Start at 21:00 Calcium Carbonate/ Glycine (Tums) 500 mg PRN Q4HRS PRN PO INDIGESTION; Start at 02:00 Calcium/Vitamin D (Oscal D 500mg/ 200uts) 1 tab DAILYWBKFT PO Last administered on 05/30/17at 08:00; Start 05/24/17 at 08:00 Loperamide HCl (Imodium) 2 mg PRN Q2MIN PRN PO DIARRHEA; Start 05/24/17 at 02: 00 Cetirizine HCl (ZyrTEC) 10 mg PRN DAILY PRN PO ALLERGIES; Start 05/24/17 at 09: 00 Multi-Ingred Cream/Lotion/Oil/ Oint (Hydrocerin) 1 tiffany DAILY TP Last administered on 05/30/17at 08:02; Start 05/24/17 at 09:00 Multivitamins/ Calcium (Thera-M Plus) 1 tab DAILY PO Last administered on at 08:01; Start 05/24/17 at 09:00 Potassium Chloride (Klor-Con) 10 meq DAILYWBKFT PO Last administered on 08:01; Start 05/24/17 at 08:00 Acetaminophen (Tylenol) 650 mg PRN Q6HRS PRN PO PAIN / TEMP Last administered on 05/28/17at 19:48; Start 05/24/17 at 02:00 Magnesium Hydroxide (Milk Of Magnesia) 2,400 mg PRN Q24HRS PRN PO CONSTIPATION ; Start 05/24/17 at 02:00 Nicotine Polacrilex (Nicorette Gum) 2 mg PRN Q2HR PRN BC SMOKING CESSATION Last administered on 05/27/17at 20:41; Start 05/26/17 at 14:30 Divalproex Sodium (Depakote Sprinkles) 500 mg DAILY PO Last administered on at 08:01; Start 05/27/17 at 09:00 Divalproex Sodium (Depakote Sprinkles) 750 mg QHS PO Last administered on at 20:54; Start 05/26/17 at 21:00 Trazodone HCl (Desyrel) 50 mg QHS PO Last administered on 05/29/17at 19:41; Start 05/26/17 at 21:00; Stop 05/30/17 at 19:49; Status DC Trazodone HCl (Desyrel) 50 mg PRN QHS PRN PO INSOMNIA; Start 05/26/17 at 19:15 Famotidine (Pepcid Vial) 20 mg STK-MED ONCE .ROUTE ; Start 05/28/17 at 11:59; Stop 05/28/17 at 12:00; Status DC Levothyroxine Sodium (Synthroid) 150 mcg DAILY06 PO Last administered on at 08:01; Start 05/29/17 at 06:00 Trazodone HCl (Desyrel) 100 mg QHS PO Last administered on 05/30/17at 20:56; Start 05/30/17 at 21:00 Active Scripts Active Reported Vitamin D3 (Cholecalciferol (Vitamin D3)) 1,000 Unit Tablet 1,000 Unit PO DAILY Calcium (Calcium Carbonate) 500 Mg Tab.chew 500 Mg PO PRN Q4HRS PRN Senna Concentrate (Sennosides) 8.6 Mg Tablet 8.6 Mg PO QHS Guaifenesin Dm Syrup (Guaifenesin/Dextromethorphan) 5 Ml Syrup 5 Ml PO PRN Q6HRS PRN Robitussin Cough-Chest Dm Liq (Guaifenesin/Dextromethorphan) 237 Ml Liquid 237 Ml PO Risperdal (Risperidone) 3 Mg Tablet 3 Mg PO BID Seroquel (Quetiapine Fumarate) 200 Mg Tablet 200 Mg PO QHS Potassium Chloride 10 Meq Tablet.er 10 Meq PO DAILY Miralax (Polyethylene Glycol 3350) 119 Gm Powder 17 Gm PO PRN DAILY PRN Multi Vitamin Daily (Multivitamin) 1 Each Tablet 1 Tab PO DAILY Milk Of Magnesia (Magnesium Hydroxide) 400 Mg/5 Ml Oral.susp 2,400 Mg PO PRN Q24HRS PRN Loratadine 10 Mg Tablet 10 Mg PO PRN Q24HRS PRN Loperamide (Loperamide Hcl) 2 Mg Tablet 2 Mg PO PRN Q2HR PRN MDD 16mg Loperamide (Loperamide Hcl) 1 Mg/7.5 Ml Liquid 2 Mg PO PRN Q2HR PRN MDD 16mg Levothyroxine Sodium 150 Mcg Tablet 150 Mcg PO DAILY07 Ibuprofen 400 Mg Tablet 400 Mg PO PRN Q4HRS PRN Hydrocerin Lotion (Mineral Oil/I-Prop Myr/Water) 472 Ml Lotion 1 Tiffany TP DAILY Lasix (Furosemide) 40 Mg Tablet 40 Mg PO BID92 Depakote Sprinkle (Divalproex Sodium) 125 Mg Cap.sprink 500 Mg PO QHS Depakote Sprinkle (Divalproex Sodium) 125 Mg Cap.sprink 250 Mg PO DAILY Calcium 600 + Vit D 400 Tablet (Calcium Carbonate/Vitamin D3) 1 Each Tablet 1 Tab PO DAILY Wellbutrin Sr (Bupropion Hcl) 150 Mg Tablet.er 150 Mg PO DAILY Atorvastatin Calcium 10 Mg Tablet 10 Mg PO QHS Tylenol (Acetaminophen) 325 Mg Tablet 650 Mg PO PRN Q6HRS PRN I have reviewed the current psychotropics carefully including drug interactions. Risk benefit ratio favors no change other than as noted in my dictated progress note. Diagnosis: Problems: (1) Schizoaffective disorder, bipolar type (2) Anxiety disorder (3) Impulse control disorder (4) Bipolar affective, mixed, sev w/ psych (5) Schizophrenia, disorganized, subchronic with acute exacerbation CHRIS العلي MD May 30, 2017 22:38
[2017-05-31] MEDS: LEVOTHYROXINE 150 MCG TABLET PO SCH (05:52)
[2017-05-31 06:29] VITALS: BP 96/60
[2017-05-31] MEDS: POTASSIUM CHLORIDE 10 MEQ TABLET.ER. PO SCH (08:10)
[2017-05-31] MEDS: buPROPion SR 150 MG TABLET.SA PO SCH (08:10)
[2017-05-31] MEDS: risperiDONE 1 MG TABLET. PO SCH ×2 (08:10→20:09)
[2017-05-31] MEDS: MULTIVITAMIN with MINERAL TABLET. PO SCH (08:10)
[2017-05-31] MEDS: CALCIUM CARB/VIT D3 500/200 TABLET PO SCH (08:10)
[2017-05-31] MEDS: CHOLECALCIFEROL (VITAMIN D3) 1,000 UNIT TABLET PO SCH (08:10)
[2017-05-31] MEDS: FUROSEMIDE 40 MG TABLET PO SCH ×2 (08:10→13:16)
[2017-05-31] MEDS: MINERAL OIL/PETROLATUM TOPICAL CREAM 113GM JAR. TP SCH (08:11)
[2017-05-31] MEDS: DIVALPROEX 125 MG CAP.SPRINK PO SCH ×2 (08:11→20:08)
[2017-05-31 15:45] VITALS: BP 117/62
[2017-05-31] MEDS: ATORVASTATIN CALCIUM 10 MG TABLET. PO SCH (20:09)
[2017-05-31] MEDS: traZODone 100 MG TABLET. PO SCH (20:09)
[2017-05-31] MEDS: QUEtiapine 100 MG TABLET. PO SCH (20:09)
[2017-05-31] MEDS: SENNOSIDES 8.6 MG TABLET PO SCH (20:10)
--- NOTE | 2017-05-31 20:57 | PDOC ---
Exam Note: Maulik Note: Please also refer to the separate dictated note~for this date of service dictated separately.~Patient seen individually. Discussed the patient with Nursing staff reviewed the chart.~Reviewed interim history and current functioning. Reviewed vital signs,~Labs/ Radiology~and current medications noted below. Continue current treatment with the changes noted in the dictated addendum note Assessment: Vital Signs: Vital Signs Date Time Temp Pulse Resp B/P (MAP) Pulse Ox O2 Delivery O2 Flow Rate FiO2 05/31/17 15:45 97.7 86 19 117/62 (80) 98 05/31/17 06:29 Room Air I&O Intake and Output 05/31/17 07:00 Intake Total 1165 ml Balance 1165 ml Intake Oral 1165 ml Current Medications: Meds: Current Medications Multi-Ingredient Ointment (Analgesic Embudo) 1 tiffany PRN QID PRN TP MUSCLE PAIN; Start 05/24/17 at 01:15 Al Hydroxide/Mg Hydroxide (Mylanta Plus Xs) 15 ml PRN AFTMEALHC PRN PO DYSPEPSIA; Start 05/24/17 at 01:15 Nicotine (Nicoderm Cq 21mg) 1 patch DAILY TD Last administered on 05/26/17at 09: 51; Start 05/24/17 at 09:00; Stop 05/26/17 at 14:25; Status DC Bupropion HCl (Wellbutrin Sr) 150 mg DAILY PO Last administered on 05/31/17at 08 :10; Start 05/24/17 at 09:00 Divalproex Sodium (Depakote Sprinkles) 250 mg DAILY PO Last administered on at 09:51; Start 05/24/17 at 09:00; Stop 05/26/17 at 19:20; Status DC Divalproex Sodium (Depakote Sprinkles) 500 mg QHS PO Last administered on at 20:43; Start 05/24/17 at 21:00; Stop 05/26/17 at 19:20; Status DC Quetiapine Fumarate (SEROquel) 100 mg QHS PO Last administered on 05/31/17at 20: 09; Start 05/24/17 at 21:00 Risperidone (RisperDAL) 3 mg BID PO Last administered on 05/31/17at 20:09; Start 05/24/17 at 09:00 Olanzapine (ZyPREXA ZYDIS) 5 mg PRN Q2HR PRN PO Psych; Start 05/24/17 at 01:15 Acetaminophen (Tylenol) 650 mg PRN Q6HRS PRN PO PAIN / TEMP; Start 05/24/17 at 01:30; Status UNV Atorvastatin Calcium (Lipitor) 10 mg QHS PO Last administered on 05/31/17 20: 09; Start 05/24/17 at 21:00 Vitamin D (Vitamin D3) 1,000 unit DAILY PO Last administered on 05/31/17 08:10 ; Start 05/24/17 at 09:00 Furosemide (Lasix) 40 mg BID92 PO Last administered on 05/31/17 13:16; Start 05/24/17 at 09:00 Guaifenesin (Robitussin Dm) 5 ml PRN Q6HRS PRN PO CONGESTION Last administered on 05/26/17 14:51; Start 05/24/17 at 01:30 Ibuprofen (Motrin) 400 mg PRN Q4HRS PRN PO MODERATE PAIN Last administered on 13:02; Start 05/24/17 at 01:30 Levothyroxine Sodium (Synthroid) 150 mcg DAILY07 PO Last administered on 04:27; Start 05/24/17 at 07:00; Stop 05/28/17 at 13:46; Status DC Magnesium Hydroxide (Milk Of Magnesia) 2,400 mg PRN Q24HRS PRN PO CONSTIPATION ; Start 05/24/17 at 01:30; Status UNV Polyethylene Glycol (miraLAX) 17 gm PRN DAILY PRN PO CONSTIPATION; Start at 01:30 Sennosides (Senna) 8.6 mg QHS PO Last administered on 05/31/17at 20:10; Start at 21:00 Calcium Carbonate/ Glycine (Tums) 500 mg PRN Q4HRS PRN PO INDIGESTION; Start at 02:00 Calcium/Vitamin D (Oscal D 500mg/ 200uts) 1 tab DAILYWBKFT PO Last administered on 05/31/17at 08:10; Start 05/24/17 at 08:00 Loperamide HCl (Imodium) 2 mg PRN Q2MIN PRN PO DIARRHEA; Start 05/24/17 at 02: 00 Cetirizine HCl (ZyrTEC) 10 mg PRN DAILY PRN PO ALLERGIES; Start 05/24/17 at 09: 00 Multi-Ingred Cream/Lotion/Oil/ Oint (Hydrocerin) 1 tiffany DAILY TP Last administered on 05/31/17 08:11; Start 05/24/17 at 09:00 Multivitamins/ Calcium (Thera-M Plus) 1 tab DAILY PO Last administered on 08:10; Start 05/24/17 at 09:00 Potassium Chloride (Klor-Con) 10 meq DAILYWBKFT PO Last administered on 08:10; Start 05/24/17 at 08:00 Acetaminophen (Tylenol) 650 mg PRN Q6HRS PRN PO PAIN / TEMP Last administered on 05/28/17at 19:48; Start 05/24/17 at 02:00 Magnesium Hydroxide (Milk Of Magnesia) 2,400 mg PRN Q24HRS PRN PO CONSTIPATION ; Start 05/24/17 at 02:00 Nicotine Polacrilex (Nicorette Gum) 2 mg PRN Q2HR PRN BC SMOKING CESSATION Last administered on 05/27/17at 20:41; Start 05/26/17 at 14:30 Divalproex Sodium (Depakote Sprinkles) 500 mg DAILY PO Last administered on at 08:11; Start 05/27/17 at 09:00 Divalproex Sodium (Depakote Sprinkles) 750 mg QHS PO Last administered on at 20:08; Start 05/26/17 at 21:00 Trazodone HCl (Desyrel) 50 mg QHS PO Last administered on 05/29/17at 19:41; Start 05/26/17 at 21:00; Stop 05/30/17 at 19:49; Status DC Trazodone HCl (Desyrel) 50 mg PRN QHS PRN PO INSOMNIA; Start 05/26/17 at 19:15 Famotidine (Pepcid Vial) 20 mg STK-MED ONCE .ROUTE ; Start 05/28/17 at 11:59; Stop 05/28/17 at 12:00; Status DC Levothyroxine Sodium (Synthroid) 150 mcg DAILY06 PO Last administered on at 05:52; Start 05/29/17 at 06:00 Trazodone HCl (Desyrel) 100 mg QHS PO Last administered on 05/31/17at 20:09; Start 05/30/17 at 21:00 Active Scripts Active Reported Vitamin D3 (Cholecalciferol (Vitamin D3)) 1,000 Unit Tablet 1,000 Unit PO DAILY Calcium (Calcium Carbonate) 500 Mg Tab.chew 500 Mg PO PRN Q4HRS PRN Senna Concentrate (Sennosides) 8.6 Mg Tablet 8.6 Mg PO QHS Guaifenesin Dm Syrup (Guaifenesin/Dextromethorphan) 5 Ml Syrup 5 Ml PO PRN Q6HRS PRN Robitussin Cough-Chest Dm Liq (Guaifenesin/Dextromethorphan) 237 Ml Liquid 237 Ml PO Risperdal (Risperidone) 3 Mg Tablet 3 Mg PO BID Seroquel (Quetiapine Fumarate) 200 Mg Tablet 200 Mg PO QHS Potassium Chloride 10 Meq Tablet.er 10 Meq PO DAILY Miralax (Polyethylene Glycol 3350) 119 Gm Powder 17 Gm PO PRN DAILY PRN Multi Vitamin Daily (Multivitamin) 1 Each Tablet 1 Tab PO DAILY Milk Of Magnesia (Magnesium Hydroxide) 400 Mg/5 Ml Oral.susp 2,400 Mg PO PRN Q24HRS PRN Loratadine 10 Mg Tablet 10 Mg PO PRN Q24HRS PRN Loperamide (Loperamide Hcl) 2 Mg Tablet 2 Mg PO PRN Q2HR PRN MDD 16mg Loperamide (Loperamide Hcl) 1 Mg/7.5 Ml Liquid 2 Mg PO PRN Q2HR PRN MDD 16mg Levothyroxine Sodium 150 Mcg Tablet 150 Mcg PO DAILY07 Ibuprofen 400 Mg Tablet 400 Mg PO PRN Q4HRS PRN Hydrocerin Lotion (Mineral Oil/I-Prop Myr/Water) 472 Ml Lotion 1 Tiffany TP DAILY Lasix (Furosemide) 40 Mg Tablet 40 Mg PO BID92 Depakote Sprinkle (Divalproex Sodium) 125 Mg Cap.sprink 500 Mg PO QHS Depakote Sprinkle (Divalproex Sodium) 125 Mg Cap.sprink 250 Mg PO DAILY Calcium 600 + Vit D 400 Tablet (Calcium Carbonate/Vitamin D3) 1 Each Tablet 1 Tab PO DAILY Wellbutrin Sr (Bupropion Hcl) 150 Mg Tablet.er 150 Mg PO DAILY Atorvastatin Calcium 10 Mg Tablet 10 Mg PO QHS Tylenol (Acetaminophen) 325 Mg Tablet 650 Mg PO PRN Q6HRS PRN I have reviewed the current psychotropics carefully including drug interactions. Risk benefit ratio favors no change other than as noted in my dictated progress note. Diagnosis: Problems: (1) Schizoaffective disorder, bipolar type (2) Anxiety disorder (3) Impulse control disorder (4) Bipolar affective, mixed, sev w/ psych (5) Schizophrenia, disorganized, subchronic with acute exacerbation CHRIS العلي MD May 31, 2017 20:57
--- NOTE | 2017-06-01 04:05 | PN ---
DATE: 05/29/2017 PSYCHIATRIC PROGRESS NOTE This is a late entry of 05/29/2016, covers elements not covered in my note of 05/29/2017. I met with the patient evening of 05/29/2017. The patient slept 8 hours previous evening compliant with medication . She was up to the nursing window whining repeatedly, wanting to call the brother anxiously . Previous evening, she "fought" nursing staff and was laughing somewhat inappropriately, do not actively hallucinating per nursing report. It just appeared she was tired . REVIEW OF SYSTEMS: No CV, , pulmonary, eye systems. MENTAL STATUS EXAM: Oriented to herself and situation. Speech is coherent, has some latency. Abstraction fair, computation impaired, language function intact, attention span short. Mood and affect, somewhat anxious but less labile. No suicidal or homicidal ideation. LABORATORY DATA: Reviewed. IMPRESSION: Unchanged from initial note. PLAN: Continue psychotropics mentioned. Valproic acid level therapeutic at 65. CHRIS Wan العلي MD DR: PATIENCE/ilia JOB#: [id number] / [id number]
[2017-06-01] MEDS: LEVOTHYROXINE 150 MCG TABLET PO SCH (05:14)
[2017-06-01 06:40] VITALS: BP 96/60
[2017-06-01 07:51] VITALS: BP 105/68
[2017-06-01] MEDS: MINERAL OIL/PETROLATUM TOPICAL CREAM 113GM JAR. TP SCH (09:00)
[2017-06-01] MEDS: MULTIVITAMIN with MINERAL TABLET. PO SCH (09:25)
[2017-06-01] MEDS: FUROSEMIDE 40 MG TABLET PO SCH ×2 (09:25→14:22)
[2017-06-01] MEDS: buPROPion SR 150 MG TABLET.SA PO SCH (09:25)
[2017-06-01] MEDS: CALCIUM CARB/VIT D3 500/200 TABLET PO SCH (09:25)
[2017-06-01] MEDS: DIVALPROEX 125 MG CAP.SPRINK PO SCH ×2 (09:25→20:32)
[2017-06-01] MEDS: POTASSIUM CHLORIDE 10 MEQ TABLET.ER. PO SCH (09:26)
[2017-06-01] MEDS: risperiDONE 1 MG TABLET. PO SCH ×2 (09:26→20:33)
[2017-06-01] MEDS: CHOLECALCIFEROL (VITAMIN D3) 1,000 UNIT TABLET PO SCH (09:26)
[2017-06-01 16:20] VITALS: BP 119/52
--- NOTE | 2017-06-01 16:23 | PN ---
DATE: 05/30/2017 PSYCHIATRIC PROGRESS NOTE This is a late entry for 05/30/2017 covers elements not covered in my initial note of 05/30/2017. SUBJECTIVE: I met with the patient on the evening of 05/30/2017. She is sleeping poorly. We will add Trazadone ____. ____ Speech has some latency, coherent. Abstraction fair. Computation impaired. Language function ____. Mood and affect remain somewhat anxious, labile ____. LABORATORY DATA: Reviewed. IMPRESSION: Unchanged from initial ____. MAN Wan العلي MD DR: PATIENCE/ilia JOB#: [id number] / [id number]
[2017-06-01] MEDS: traZODone 100 MG TABLET. PO SCH (20:32)
[2017-06-01] MEDS: QUEtiapine 100 MG TABLET. PO SCH (20:33)
[2017-06-01] MEDS: ATORVASTATIN CALCIUM 10 MG TABLET. PO SCH (20:33)
[2017-06-01] MEDS: SENNOSIDES 8.6 MG TABLET PO SCH (20:33)
--- NOTE | 2017-06-01 20:52 | PDOC ---
Exam Note: Maulik Note: Please also refer to the separate dictated note~for this date of service dictated separately.~Patient seen individually. Discussed the patient with Nursing staff reviewed the chart.~Reviewed interim history and current functioning. Reviewed vital signs,~Labs/ Radiology~and current medications noted below. Continue current treatment with the changes noted in the dictated addendum note Assessment: Vital Signs: Vital Signs Date Time Temp Pulse Resp B/P (MAP) Pulse Ox O2 Delivery O2 Flow Rate FiO2 06/01/17 16:20 97.8 79 16 119/52 (74) 95 06/01/17 07:51 Room Air I&O Intake and Output 06/01/17 07:00 Intake Total 1080 ml Balance 1080 ml Intake Oral 1080 ml Current Medications: Meds: Current Medications Multi-Ingredient Ointment (Analgesic [place]) 1 tiffany PRN QID PRN TP MUSCLE PAIN; Start 05/24/17 at 01:15 Al Hydroxide/Mg Hydroxide (Mylanta Plus Xs) 15 ml PRN AFTMEALHC PRN PO DYSPEPSIA; Start 05/24/17 at 01:15 Nicotine (Nicoderm Cq 21mg) 1 patch DAILY TD Last administered on 05/26/17at 09: 51; Start 05/24/17 at 09:00; Stop 05/26/17 at 14:25; Status DC Bupropion HCl (Wellbutrin Sr) 150 mg DAILY PO Last administered on 06/01/17at 09 :25; Start 05/24/17 at 09:00 Divalproex Sodium (Depakote Sprinkles) 250 mg DAILY PO Last administered on at 09:51; Start 05/24/17 at 09:00; Stop 05/26/17 at 19:20; Status DC Divalproex Sodium (Depakote Sprinkles) 500 mg QHS PO Last administered on at 20:43; Start 05/24/17 at 21:00; Stop 05/26/17 at 19:20; Status DC Quetiapine Fumarate (SEROquel) 100 mg QHS PO Last administered on 06/01/17at 20: 33; Start 05/24/17 at 21:00 Risperidone (RisperDAL) 3 mg BID PO Last administered on 06/01/17at 20:33; Start 05/24/17 at 09:00 Olanzapine (ZyPREXA ZYDIS) 5 mg PRN Q2HR PRN PO Psych; Start 05/24/17 at 01:15 Acetaminophen (Tylenol) 650 mg PRN Q6HRS PRN PO PAIN / TEMP; Start 05/24/17 at 01:30; Status UNV Atorvastatin Calcium (Lipitor) 10 mg QHS PO Last administered on 06/01/17 20: 33; Start 05/24/17 at 21:00 Vitamin D (Vitamin D3) 1,000 unit DAILY PO Last administered on 06/01/17 09:26 ; Start 05/24/17 at 09:00 Furosemide (Lasix) 40 mg BID92 PO Last administered on 06/01/17 14:22; Start 05/24/17 at 09:00 Guaifenesin (Robitussin Dm) 5 ml PRN Q6HRS PRN PO CONGESTION Last administered on 05/26/17 14:51; Start 05/24/17 at 01:30 Ibuprofen (Motrin) 400 mg PRN Q4HRS PRN PO MODERATE PAIN Last administered on 13:02; Start 05/24/17 at 01:30 Levothyroxine Sodium (Synthroid) 150 mcg DAILY07 PO Last administered on 04:27; Start 05/24/17 at 07:00; Stop 05/28/17 at 13:46; Status DC Magnesium Hydroxide (Milk Of Magnesia) 2,400 mg PRN Q24HRS PRN PO CONSTIPATION ; Start 05/24/17 at 01:30; Status UNV Polyethylene Glycol (miraLAX) 17 gm PRN DAILY PRN PO CONSTIPATION; Start at 01:30 Sennosides (Senna) 8.6 mg QHS PO Last administered on 06/01/17 20:33; Start at 21:00 Calcium Carbonate/ Glycine (Tums) 500 mg PRN Q4HRS PRN PO INDIGESTION Last administered on 06/01/17 14:38; Start 05/24/17 at 02:00 Calcium/Vitamin D (Oscal D 500mg/ 200uts) 1 tab DAILYWBKFT PO Last administered on 06/01/17 09:25; Start 05/24/17 at 08:00 Loperamide HCl (Imodium) 2 mg PRN Q2MIN PRN PO DIARRHEA; Start 05/24/17 at 02: 00 Cetirizine HCl (ZyrTEC) 10 mg PRN DAILY PRN PO ALLERGIES; Start 05/24/17 at 09: 00 Multi-Ingred Cream/Lotion/Oil/ Oint (Hydrocerin) 1 tiffany DAILY TP Last administered on 05/31/17 08:11; Start 05/24/17 at 09:00 Multivitamins/ Calcium (Thera-M Plus) 1 tab DAILY PO Last administered on 09:25; Start 05/24/17 at 09:00 Potassium Chloride (Klor-Con) 10 meq DAILYWBKFT PO Last administered on 09:26; Start 05/24/17 at 08:00 Acetaminophen (Tylenol) 650 mg PRN Q6HRS PRN PO PAIN / TEMP Last administered on 05/28/17 19:48; Start 05/24/17 at 02:00 Magnesium Hydroxide (Milk Of Magnesia) 2,400 mg PRN Q24HRS PRN PO CONSTIPATION ; Start 05/24/17 at 02:00 Nicotine Polacrilex (Nicorette Gum) 2 mg PRN Q2HR PRN BC SMOKING CESSATION Last administered on 05/27/17at 20:41; Start 05/26/17 at 14:30 Divalproex Sodium (Depakote Sprinkles) 500 mg DAILY PO Last administered on 09:25; Start 05/27/17 at 09:00 Divalproex Sodium (Depakote Sprinkles) 750 mg QHS PO Last administered on at 20:32; Start 05/26/17 at 21:00 Trazodone HCl (Desyrel) 50 mg QHS PO Last administered on 05/29/17at 19:41; Start 05/26/17 at 21:00; Stop 05/30/17 at 19:49; Status DC Trazodone HCl (Desyrel) 50 mg PRN QHS PRN PO INSOMNIA; Start 05/26/17 at 19:15 Famotidine (Pepcid Vial) 20 mg STK-MED ONCE .ROUTE ; Start 05/28/17 at 11:59; Stop 05/28/17 at 12:00; Status DC Levothyroxine Sodium (Synthroid) 150 mcg DAILY06 PO Last administered on at 05:14; Start 05/29/17 at 06:00 Trazodone HCl (Desyrel) 100 mg QHS PO Last administered on 06/01/17at 20:32; Start 05/30/17 at 21:00 Active Scripts Active Reported Vitamin D3 (Cholecalciferol (Vitamin D3)) 1,000 Unit Tablet 1,000 Unit PO DAILY Calcium (Calcium Carbonate) 500 Mg Tab.chew 500 Mg PO PRN Q4HRS PRN Senna Concentrate (Sennosides) 8.6 Mg Tablet 8.6 Mg PO QHS Guaifenesin Dm Syrup (Guaifenesin/Dextromethorphan) 5 Ml Syrup 5 Ml PO PRN Q6HRS PRN Robitussin Cough-Chest Dm Liq (Guaifenesin/Dextromethorphan) 237 Ml Liquid 237 Ml PO Risperdal (Risperidone) 3 Mg Tablet 3 Mg PO BID Seroquel (Quetiapine Fumarate) 200 Mg Tablet 200 Mg PO QHS Potassium Chloride 10 Meq Tablet.er 10 Meq PO DAILY Miralax (Polyethylene Glycol 3350) 119 Gm Powder 17 Gm PO PRN DAILY PRN Multi Vitamin Daily (Multivitamin) 1 Each Tablet 1 Tab PO DAILY Milk Of Magnesia (Magnesium Hydroxide) 400 Mg/5 Ml Oral.susp 2,400 Mg PO PRN Q24HRS PRN Loratadine 10 Mg Tablet 10 Mg PO PRN Q24HRS PRN Loperamide (Loperamide Hcl) 2 Mg Tablet 2 Mg PO PRN Q2HR PRN MDD 16mg Loperamide (Loperamide Hcl) 1 Mg/7.5 Ml Liquid 2 Mg PO PRN Q2HR PRN MDD 16mg Levothyroxine Sodium 150 Mcg Tablet 150 Mcg PO DAILY07 Ibuprofen 400 Mg Tablet 400 Mg PO PRN Q4HRS PRN Hydrocerin Lotion (Mineral Oil/I-Prop Myr/Water) 472 Ml Lotion 1 Tiffany TP DAILY Lasix (Furosemide) 40 Mg Tablet 40 Mg PO BID92 Depakote Sprinkle (Divalproex Sodium) 125 Mg Cap.sprink 500 Mg PO QHS Depakote Sprinkle (Divalproex Sodium) 125 Mg Cap.sprink 250 Mg PO DAILY Calcium 600 + Vit D 400 Tablet (Calcium Carbonate/Vitamin D3) 1 Each Tablet 1 Tab PO DAILY Wellbutrin Sr (Bupropion Hcl) 150 Mg Tablet.er 150 Mg PO DAILY Atorvastatin Calcium 10 Mg Tablet 10 Mg PO QHS Tylenol (Acetaminophen) 325 Mg Tablet 650 Mg PO PRN Q6HRS PRN I have reviewed the current psychotropics carefully including drug interactions. Risk benefit ratio favors no change other than as noted in my dictated progress note. Diagnosis: Problems: (1) Schizoaffective disorder, bipolar type (2) Anxiety disorder (3) Impulse control disorder (4) Bipolar affective, mixed, sev w/ psych (5) Schizophrenia, disorganized, subchronic with acute exacerbation CHRIS العيل MD Jun 01, 2017 20:52
--- NOTE | 2017-06-02 03:51 | PN ---
DATE: 05/30/2017 This is a late entry for 05/30/2017 and is a re-dictation requested by medical records. This note covers elements not covered in my initial note of 05/30/2017. SUBJECTIVE: I met with the patient in the evening of 05/30/2017. The patient is sleeping poorly. We will start trazodone 50 mg at bedtime p.r.n., may repeat x 1, always insistent on having a coke with her meals. REVIEW OF SYSTEMS: No CV, , pulmonary, eye system symptoms on review. MENTAL STATUS EXAM: Oriented to herself and situation. Speech has some latency, coherent. Abstraction fair, computation impaired, language function intact, still somewhat paranoid, less so than before. LABORATORY DATA: Reviewed. IMPRESSION: Unchanged from initial note. PLAN: Continue psychotropics mentioned in my initial note. MAN Wan العلي MD DR: PATIENCE/ilia JOB#: [id number] / [id number]
--- NOTE | 2017-06-02 04:08 | PN ---
DATE: 05/31/2017 This is a late entry for 05/31/2017, covers elements not covered in my initial note of 05/31/2017. SUBJECTIVE: I met with the patient in the afternoon. This is a redictation requested by medical records. The patient is compliant with her medications, doing a little better. REVIEW OF SYSTEMS: No CV, , pulmonary, eye, ENT system symptoms on review. MENTAL STATUS EXAMINATION: Oriented to herself and situation. Speech has some latency, coherent. Abstraction fair. Computation impaired. Language function intact. Mood and affect less labile. LABORATORY DATA: Reviewed. IMPRESSION: Schizoaffective disorder, bipolar type, mixed with psychotic features, in partial remission. PLAN: Continue psychotropics mentioned in my initial note. MAN Wan العلي MD DR: PATIENCE/ilia JOB#: [id number] / [id number]
[2017-06-02 05:00] VITALS: BP 133/64
[2017-06-02] MEDS: LEVOTHYROXINE 150 MCG TABLET PO SCH (05:29)
[2017-06-02] MEDS: MINERAL OIL/PETROLATUM TOPICAL CREAM 113GM JAR. TP SCH ×2 (09:00→09:13)
[2017-06-02] MEDS: CHOLECALCIFEROL (VITAMIN D3) 1,000 UNIT TABLET PO SCH (09:10)
[2017-06-02] MEDS: risperiDONE 1 MG TABLET. PO SCH ×2 (09:10→20:39)
[2017-06-02] MEDS: FUROSEMIDE 40 MG TABLET PO SCH ×2 (09:10→14:02)
[2017-06-02] MEDS: MULTIVITAMIN with MINERAL TABLET. PO SCH (09:10)
[2017-06-02] MEDS: buPROPion SR 150 MG TABLET.SA PO SCH (09:10)
[2017-06-02] MEDS: POTASSIUM CHLORIDE 10 MEQ TABLET.ER. PO SCH (09:10)
[2017-06-02] MEDS: DIVALPROEX 125 MG CAP.SPRINK PO SCH ×2 (09:10→20:40)
[2017-06-02] MEDS: CALCIUM CARB/VIT D3 500/200 TABLET PO SCH (09:10)
[2017-06-02] MEDS: IBUPROFEN 400 MG TABLET. PO PRN (10:58)
--- NOTE | 2017-06-02 11:03 | PN ---
DATE: 05/29/2017 PSYCHIATRIC PROGRESS NOTE This is a late entry, date of service 05/29/2017, covers elements not covered in my initial note of 05/29/2017. SUBJECTIVE: I met with the patient evening of 05/29/2017. This note is being redictated as requested by health information office. The patient slept 8 hours previous evening, compliant with medications and cares. She is frequently up to the nursing station window, winding, repeatedly tried to call her brother. She was resistive to getting to bed the previous evening, some inappropriate laughing noted, but not entirely psychotic. REVIEW OF SYSTEMS: No CV, , pulmonary, eye system symptoms on review. MENTAL STATUS EXAM: Reasonably oriented. Speech coherent, abstraction fair, computation impaired, language function intact, attention span short. Mood and affect, lability is improved. LABORATORY DATA: Reviewed. IMPRESSION: Unchanged from initial note. PLAN: Continue psychotropics mentioned in my initial note. Valproic acid level therapeutic at 65. CHRIS العلي MD DR: PATIENCE/ilia JOB#: [id number] / [id number]
[2017-06-02 13:45] VITALS: BP 107/55
[2017-06-02] MEDS: ATORVASTATIN CALCIUM 10 MG TABLET. PO SCH (20:39)
[2017-06-02] MEDS: SENNOSIDES 8.6 MG TABLET PO SCH (20:39)
[2017-06-02] MEDS: QUEtiapine 100 MG TABLET. PO SCH (20:39)
[2017-06-02] MEDS: traZODone 100 MG TABLET. PO SCH (20:40)
--- NOTE | 2017-06-02 20:51 | PDOC ---
Exam Note: Maulik Note: Please also refer to the separate dictated note~for this date of service dictated separately.~Patient seen individually. Discussed the patient with Nursing staff reviewed the chart.~Reviewed interim history and current functioning. Reviewed vital signs,~Labs/ Radiology~and current medications noted below. Continue current treatment with the changes noted in the dictated addendum note Assessment: Vital Signs: Vital Signs Date Time Temp Pulse Resp B/P (MAP) Pulse Ox O2 Delivery O2 Flow Rate FiO2 06/02/17 13:45 81 107/55 (72) 06/02/17 05:00 97.7 18 98 06/01/17 07:51 Room Air I&O Intake and Output 06/02/17 07:00 Intake Total 1560 ml Balance 1560 ml Intake Oral 1560 ml Current Medications: Meds: Current Medications Multi-Ingredient Ointment (Analgesic [place]) 1 tiffany PRN QID PRN TP MUSCLE PAIN; Start 05/24/17 at 01:15 Al Hydroxide/Mg Hydroxide (Mylanta Plus Xs) 15 ml PRN AFTMEALHC PRN PO DYSPEPSIA; Start 05/24/17 at 01:15 Nicotine (Nicoderm Cq 21mg) 1 patch DAILY TD Last administered on 05/26/17 09: 51; Start 05/24/17 at 09:00; Stop 05/26/17 at 14:25; Status DC Bupropion HCl (Wellbutrin Sr) 150 mg DAILY PO Last administered on 06/02/17at 09 :10; Start 05/24/17 at 09:00 Divalproex Sodium (Depakote Sprinkles) 250 mg DAILY PO Last administered on at 09:51; Start 05/24/17 at 09:00; Stop 05/26/17 at 19:20; Status DC Divalproex Sodium (Depakote Sprinkles) 500 mg QHS PO Last administered on 20:43; Start 05/24/17 at 21:00; Stop 05/26/17 at 19:20; Status DC Quetiapine Fumarate (SEROquel) 100 mg QHS PO Last administered on 06/02/17at 20: 39; Start 05/24/17 at 21:00 Risperidone (RisperDAL) 3 mg BID PO Last administered on 4/24/18at 20:39; Start 05/24/17 at 09:00 Olanzapine (ZyPREXA ZYDIS) 5 mg PRN Q2HR PRN PO Psych; Start 05/24/17 at 01:15 Acetaminophen (Tylenol) 650 mg PRN Q6HRS PRN PO PAIN / TEMP; Start 05/24/17 at 01:30; Status UNV Atorvastatin Calcium (Lipitor) 10 mg QHS PO Last administered on 06/02/17 20: 39; Start 05/24/17 at 21:00 Vitamin D (Vitamin D3) 1,000 unit DAILY PO Last administered on 06/02/17 09:10 ; Start 05/24/17 at 09:00 Furosemide (Lasix) 40 mg BID92 PO Last administered on 06/02/17 14:02; Start 05/24/17 at 09:00 Guaifenesin (Robitussin Dm) 5 ml PRN Q6HRS PRN PO CONGESTION Last administered on 05/26/17 14:51; Start 05/24/17 at 01:30 Ibuprofen (Motrin) 400 mg PRN Q4HRS PRN PO MODERATE PAIN Last administered on 10:58; Start 05/24/17 at 01:30 Levothyroxine Sodium (Synthroid) 150 mcg DAILY07 PO Last administered on 04:27; Start 05/24/17 at 07:00; Stop 05/28/17 at 13:46; Status DC Magnesium Hydroxide (Milk Of Magnesia) 2,400 mg PRN Q24HRS PRN PO CONSTIPATION ; Start 05/24/17 at 01:30; Status UNV Polyethylene Glycol (miraLAX) 17 gm PRN DAILY PRN PO CONSTIPATION Last administered on 06/02/17 06:29; Start 05/24/17 at 01:30 Sennosides (Senna) 8.6 mg QHS PO Last administered on 06/02/17 20:39; Start at 21:00 Calcium Carbonate/ Glycine (Tums) 500 mg PRN Q4HRS PRN PO INDIGESTION Last administered on 06/01/17 14:38; Start 05/24/17 at 02:00 Calcium/Vitamin D (Oscal D 500mg/ 200uts) 1 tab DAILYWBKFT PO Last administered on 06/02/17 09:10; Start 05/24/17 at 08:00 Loperamide HCl (Imodium) 2 mg PRN Q2MIN PRN PO DIARRHEA; Start 05/24/17 at 02: 00 Cetirizine HCl (ZyrTEC) 10 mg PRN DAILY PRN PO ALLERGIES; Start 05/24/17 at 09: 00 Multi-Ingred Cream/Lotion/Oil/ Oint (Hydrocerin) 1 tiffany DAILY TP Last administered on 05/31/17 08:11; Start 05/24/17 at 09:00 Multivitamins/ Calcium (Thera-M Plus) 1 tab DAILY PO Last administered on 09:10; Start 05/24/17 at 09:00 Potassium Chloride (Klor-Con) 10 meq DAILYWBKFT PO Last administered on 09:10; Start 05/24/17 at 08:00 Acetaminophen (Tylenol) 650 mg PRN Q6HRS PRN PO PAIN / TEMP Last administered on 05/28/17 19:48; Start 05/24/17 at 02:00 Magnesium Hydroxide (Milk Of Magnesia) 2,400 mg PRN Q24HRS PRN PO CONSTIPATION ; Start 05/24/17 at 02:00 Nicotine Polacrilex (Nicorette Gum) 2 mg PRN Q2HR PRN BC SMOKING CESSATION Last administered on 05/27/17 20:41; Start 05/26/17 at 14:30 Divalproex Sodium (Depakote Sprinkles) 500 mg DAILY PO Last administered on 09:10; Start 05/27/17 at 09:00 Divalproex Sodium (Depakote Sprinkles) 750 mg QHS PO Last administered on 20:40; Start 05/26/17 at 21:00 Trazodone HCl (Desyrel) 50 mg QHS PO Last administered on 05/29/17 19:41; Start 05/26/17 at 21:00; Stop 05/30/17 at 19:49; Status DC Trazodone HCl (Desyrel) 50 mg PRN QHS PRN PO INSOMNIA; Start 05/26/17 at 19:15 Famotidine (Pepcid Vial) 20 mg STK-MED ONCE .ROUTE ; Start 05/28/17 at 11:59; Stop 05/28/17 at 12:00; Status DC Levothyroxine Sodium (Synthroid) 150 mcg DAILY06 PO Last administered on at 05:29; Start 05/29/17 at 06:00 Trazodone HCl (Desyrel) 100 mg QHS PO Last administered on 06/02/17at 20:40; Start 05/30/17 at 21:00 Active Scripts Active Reported Vitamin D3 (Cholecalciferol (Vitamin D3)) 1,000 Unit Tablet 1,000 Unit PO DAILY Calcium (Calcium Carbonate) 500 Mg Tab.chew 500 Mg PO PRN Q4HRS PRN Senna Concentrate (Sennosides) 8.6 Mg Tablet 8.6 Mg PO QHS Guaifenesin Dm Syrup (Guaifenesin/Dextromethorphan) 5 Ml Syrup 5 Ml PO PRN Q6HRS PRN Robitussin Cough-Chest Dm Liq (Guaifenesin/Dextromethorphan) 237 Ml Liquid 237 Ml PO Risperdal (Risperidone) 3 Mg Tablet 3 Mg PO BID Seroquel (Quetiapine Fumarate) 200 Mg Tablet 200 Mg PO QHS Potassium Chloride 10 Meq Tablet.er 10 Meq PO DAILY Miralax (Polyethylene Glycol 3350) 119 Gm Powder 17 Gm PO PRN DAILY PRN Multi Vitamin Daily (Multivitamin) 1 Each Tablet 1 Tab PO DAILY Milk Of Magnesia (Magnesium Hydroxide) 400 Mg/5 Ml Oral.susp 2,400 Mg PO PRN Q24HRS PRN Loratadine 10 Mg Tablet 10 Mg PO PRN Q24HRS PRN Loperamide (Loperamide Hcl) 2 Mg Tablet 2 Mg PO PRN Q2HR PRN MDD 16mg Loperamide (Loperamide Hcl) 1 Mg/7.5 Ml Liquid 2 Mg PO PRN Q2HR PRN MDD 16mg Levothyroxine Sodium 150 Mcg Tablet 150 Mcg PO DAILY07 Ibuprofen 400 Mg Tablet 400 Mg PO PRN Q4HRS PRN Hydrocerin Lotion (Mineral Oil/I-Prop Myr/Water) 472 Ml Lotion 1 Itffany TP DAILY Lasix (Furosemide) 40 Mg Tablet 40 Mg PO BID92 Depakote Sprinkle (Divalproex Sodium) 125 Mg Cap.sprink 500 Mg PO QHS Depakote Sprinkle (Divalproex Sodium) 125 Mg Cap.sprink 250 Mg PO DAILY Calcium 600 + Vit D 400 Tablet (Calcium Carbonate/Vitamin D3) 1 Each Tablet 1 Tab PO DAILY Wellbutrin Sr (Bupropion Hcl) 150 Mg Tablet.er 150 Mg PO DAILY Atorvastatin Calcium 10 Mg Tablet 10 Mg PO QHS Tylenol (Acetaminophen) 325 Mg Tablet 650 Mg PO PRN Q6HRS PRN I have reviewed the current psychotropics carefully including drug interactions. Risk benefit ratio favors no change other than as noted in my dictated progress note. Diagnosis: Problems: (1) Schizoaffective disorder, bipolar type (2) Anxiety disorder (3) Impulse control disorder (4) Bipolar affective, mixed, sev w/ psych (5) Schizophrenia, disorganized, subchronic with acute exacerbation CHRIS العلي MD Jun 02, 2017 20:51
--- NOTE | 2017-06-03 00:36 | PN ---
DATE: 06/01/2017 This is a late entry of 06/01/2017, covers elements not covered in my initial note of 06/01/2017. SUBJECTIVE: I met with the patient in the evening of 06/01/2017 out in the patio at some length. Weather has been good outside and she has been one of the few patients that has spent much of the day outside per nursing report. She slept 6 hours previous evening, slept in a chair at times, less intrusive, less labile, compliant with her medications, calmer, less agitated. REVIEW OF SYSTEMS: No CV, , pulmonary, eye, ENT system symptoms on review. Reliability fair. MENTAL STATUS EXAM: Oriented to herself and situation. Speech coherent, less pressured. Abstraction fair, computation impaired, language function intact, attention span short. Mood and affect showing improvement, less paranoid, less delusional, less pressure of speech. LABORATORY DATA: Reviewed. IMPRESSION: Schizoaffective disorder, bipolar type, mixed with psychotic features, in partial remission. PLAN: Continue psychotropics mentioned in my initial note. MAN Wan العلي MD DR: PATIENCE/ilia JOB#: [id number] / [id number]
[2017-06-03 06:40] VITALS: BP 101/74
[2017-06-03] MEDS: LEVOTHYROXINE 150 MCG TABLET PO SCH (08:27)
[2017-06-03] MEDS: CHOLECALCIFEROL (VITAMIN D3) 1,000 UNIT TABLET PO SCH (08:27)
[2017-06-03] MEDS: buPROPion SR 150 MG TABLET.SA PO SCH (08:27)
[2017-06-03] MEDS: FUROSEMIDE 40 MG TABLET PO SCH ×2 (08:27→14:01)
[2017-06-03] MEDS: CALCIUM CARB/VIT D3 500/200 TABLET PO SCH (08:27)
[2017-06-03] MEDS: DIVALPROEX 125 MG CAP.SPRINK PO SCH ×2 (08:27→19:32)
[2017-06-03] MEDS: POTASSIUM CHLORIDE 10 MEQ TABLET.ER. PO SCH (08:28)
[2017-06-03] MEDS: MULTIVITAMIN with MINERAL TABLET. PO SCH (08:28)
[2017-06-03] MEDS: risperiDONE 1 MG TABLET. PO SCH ×2 (08:28→19:31)
[2017-06-03] MEDS: MINERAL OIL/PETROLATUM TOPICAL CREAM 113GM JAR. TP SCH (08:28)
[2017-06-03 15:51] VITALS: BP 113/54
[2017-06-03] MEDS: QUEtiapine 100 MG TABLET. PO SCH (19:32)
[2017-06-03] MEDS: ATORVASTATIN CALCIUM 10 MG TABLET. PO SCH (19:32)
[2017-06-03] MEDS: SENNOSIDES 8.6 MG TABLET PO SCH (19:32)
[2017-06-03] MEDS: traZODone 100 MG TABLET. PO SCH (19:32)
[2017-06-03] MEDS: ACETAMINOPHEN 325 MG TABLET PO PRN (20:03)
--- NOTE | 2017-06-03 20:30 | PDOC ---
Exam Note: Maulik Note: Please also refer to the separate dictated note~for this date of service dictated separately.~Patient seen individually. Discussed the patient with Nursing staff reviewed the chart.~Reviewed interim history and current functioning. Reviewed vital signs,~Labs/ Radiology~and current medications noted below. Continue current treatment with the changes noted in the dictated addendum note Assessment: Vital Signs: Vital Signs Date Time Temp Pulse Resp B/P (MAP) Pulse Ox O2 Delivery O2 Flow Rate FiO2 06/03/17 15:51 98.0 90 16 113/54 (73) 97 06/03/17 06:40 Room Air I&O Intake and Output 06/03/17 07:00 Intake Total 1440 ml Balance 1440 ml Intake Oral 1440 ml # Bowel Movements 1 Current Medications: Meds: Current Medications Multi-Ingredient Ointment (Analgesic [place]) 1 tiffany PRN QID PRN TP MUSCLE PAIN; Start 05/24/17 at 01:15 Al Hydroxide/Mg Hydroxide (Mylanta Plus Xs) 15 ml PRN AFTMEALHC PRN PO DYSPEPSIA; Start 05/24/17 at 01:15 Nicotine (Nicoderm Cq 21mg) 1 patch DAILY TD Last administered on 05/26/17at 09: 51; Start 05/24/17 at 09:00; Stop 05/26/17 at 14:25; Status DC Bupropion HCl (Wellbutrin Sr) 150 mg DAILY PO Last administered on 06/03/17at 08 :27; Start 05/24/17 at 09:00 Divalproex Sodium (Depakote Sprinkles) 250 mg DAILY PO Last administered on at 09:51; Start 05/24/17 at 09:00; Stop 05/26/17 at 19:20; Status DC Divalproex Sodium (Depakote Sprinkles) 500 mg QHS PO Last administered on at 20:43; Start 05/24/17 at 21:00; Stop 05/26/17 at 19:20; Status DC Quetiapine Fumarate (SEROquel) 100 mg QHS PO Last administered on 06/03/17at 19: 32; Start 05/24/17 at 21:00 Risperidone (RisperDAL) 3 mg BID PO Last administered on 06/03/17at 19:31; Start 05/24/17 at 09:00 Olanzapine (ZyPREXA ZYDIS) 5 mg PRN Q2HR PRN PO Psych; Start 05/24/17 at 01:15 Acetaminophen (Tylenol) 650 mg PRN Q6HRS PRN PO PAIN / TEMP; Start 05/24/17 at 01:30; Status UNV Atorvastatin Calcium (Lipitor) 10 mg QHS PO Last administered on 06/03/17 19: 32; Start 05/24/17 at 21:00 Vitamin D (Vitamin D3) 1,000 unit DAILY PO Last administered on 06/03/17 08:27 ; Start 05/24/17 at 09:00 Furosemide (Lasix) 40 mg BID92 PO Last administered on 06/03/17 14:01; Start 05/24/17 at 09:00 Guaifenesin (Robitussin Dm) 5 ml PRN Q6HRS PRN PO CONGESTION Last administered on 05/26/17 14:51; Start 05/24/17 at 01:30 Ibuprofen (Motrin) 400 mg PRN Q4HRS PRN PO MODERATE PAIN Last administered on 10:58; Start 05/24/17 at 01:30 Levothyroxine Sodium (Synthroid) 150 mcg DAILY07 PO Last administered on 04:27; Start 05/24/17 at 07:00; Stop 05/28/17 at 13:46; Status DC Magnesium Hydroxide (Milk Of Magnesia) 2,400 mg PRN Q24HRS PRN PO CONSTIPATION ; Start 05/24/17 at 01:30; Status UNV Polyethylene Glycol (miraLAX) 17 gm PRN DAILY PRN PO CONSTIPATION Last administered on 06/02/17 06:29; Start 05/24/17 at 01:30 Sennosides (Senna) 8.6 mg QHS PO Last administered on 06/03/17 19:32; Start at 21:00 Calcium Carbonate/ Glycine (Tums) 500 mg PRN Q4HRS PRN PO INDIGESTION Last administered on 06/01/17 14:38; Start 05/24/17 at 02:00 Calcium/Vitamin D (Oscal D 500mg/ 200uts) 1 tab DAILYWBKFT PO Last administered on 06/03/17 08:27; Start 05/24/17 at 08:00 Loperamide HCl (Imodium) 2 mg PRN Q2MIN PRN PO DIARRHEA; Start 05/24/17 at 02: 00 Cetirizine HCl (ZyrTEC) 10 mg PRN DAILY PRN PO ALLERGIES; Start 05/24/17 at 09: 00 Multi-Ingred Cream/Lotion/Oil/ Oint (Hydrocerin) 1 tiffany DAILY TP Last administered on 06/03/17 08:28; Start 05/24/17 at 09:00 Multivitamins/ Calcium (Thera-M Plus) 1 tab DAILY PO Last administered on 08:28; Start 05/24/17 at 09:00 Potassium Chloride (Klor-Con) 10 meq DAILYWBKFT PO Last administered on 08:28; Start 05/24/17 at 08:00 Acetaminophen (Tylenol) 650 mg PRN Q6HRS PRN PO PAIN / TEMP Last administered on 06/03/17 20:03; Start 05/24/17 at 02:00 Magnesium Hydroxide (Milk Of Magnesia) 2,400 mg PRN Q24HRS PRN PO CONSTIPATION ; Start 05/24/17 at 02:00 Nicotine Polacrilex (Nicorette Gum) 2 mg PRN Q2HR PRN BC SMOKING CESSATION Last administered on 05/27/17 20:41; Start 05/26/17 at 14:30 Divalproex Sodium (Depakote Sprinkles) 500 mg DAILY PO Last administered on 08:27; Start 05/27/17 at 09:00 Divalproex Sodium (Depakote Sprinkles) 750 mg QHS PO Last administered on 19:32; Start 05/26/17 at 21:00 Trazodone HCl (Desyrel) 50 mg QHS PO Last administered on 05/29/17 19:41; Start 05/26/17 at 21:00; Stop 05/30/17 at 19:49; Status DC Trazodone HCl (Desyrel) 50 mg PRN QHS PRN PO INSOMNIA; Start 05/26/17 at 19:15 Famotidine (Pepcid Vial) 20 mg STK-MED ONCE .ROUTE ; Start 05/28/17 at 11:59; Stop 05/28/17 at 12:00; Status DC Levothyroxine Sodium (Synthroid) 150 mcg DAILY06 PO Last administered on at 08:27; Start 05/29/17 at 06:00 Trazodone HCl (Desyrel) 100 mg QHS PO Last administered on 06/03/17at 19:32; Start 05/30/17 at 21:00 Active Scripts Active Reported Vitamin D3 (Cholecalciferol (Vitamin D3)) 1,000 Unit Tablet 1,000 Unit PO DAILY Calcium (Calcium Carbonate) 500 Mg Tab.chew 500 Mg PO PRN Q4HRS PRN Senna Concentrate (Sennosides) 8.6 Mg Tablet 8.6 Mg PO QHS Guaifenesin Dm Syrup (Guaifenesin/Dextromethorphan) 5 Ml Syrup 5 Ml PO PRN Q6HRS PRN Robitussin Cough-Chest Dm Liq (Guaifenesin/Dextromethorphan) 237 Ml Liquid 237 Ml PO Risperdal (Risperidone) 3 Mg Tablet 3 Mg PO BID Seroquel (Quetiapine Fumarate) 200 Mg Tablet 200 Mg PO QHS Potassium Chloride 10 Meq Tablet.er 10 Meq PO DAILY Miralax (Polyethylene Glycol 3350) 119 Gm Powder 17 Gm PO PRN DAILY PRN Multi Vitamin Daily (Multivitamin) 1 Each Tablet 1 Tab PO DAILY Milk Of Magnesia (Magnesium Hydroxide) 400 Mg/5 Ml Oral.susp 2,400 Mg PO PRN Q24HRS PRN Loratadine 10 Mg Tablet 10 Mg PO PRN Q24HRS PRN Loperamide (Loperamide Hcl) 2 Mg Tablet 2 Mg PO PRN Q2HR PRN MDD 16mg Loperamide (Loperamide Hcl) 1 Mg/7.5 Ml Liquid 2 Mg PO PRN Q2HR PRN MDD 16mg Levothyroxine Sodium 150 Mcg Tablet 150 Mcg PO DAILY07 Ibuprofen 400 Mg Tablet 400 Mg PO PRN Q4HRS PRN Hydrocerin Lotion (Mineral Oil/I-Prop Myr/Water) 472 Ml Lotion 1 Tiffany TP DAILY Lasix (Furosemide) 40 Mg Tablet 40 Mg PO BID92 Depakote Sprinkle (Divalproex Sodium) 125 Mg Cap.sprink 500 Mg PO QHS Depakote Sprinkle (Divalproex Sodium) 125 Mg Cap.sprink 250 Mg PO DAILY Calcium 600 + Vit D 400 Tablet (Calcium Carbonate/Vitamin D3) 1 Each Tablet 1 Tab PO DAILY Wellbutrin Sr (Bupropion Hcl) 150 Mg Tablet.er 150 Mg PO DAILY Atorvastatin Calcium 10 Mg Tablet 10 Mg PO QHS Tylenol (Acetaminophen) 325 Mg Tablet 650 Mg PO PRN Q6HRS PRN I have reviewed the current psychotropics carefully including drug interactions. Risk benefit ratio favors no change other than as noted in my dictated progress note. Diagnosis: Problems: (1) Schizoaffective disorder, bipolar type (2) Anxiety disorder (3) Impulse control disorder (4) Bipolar affective, mixed, sev w/ psych (5) Schizophrenia, disorganized, subchronic with acute exacerbation CHRIS العلي MD Jun 03, 2017 20:30
--- NOTE | 2017-06-03 22:12 | PN ---
DATE: 06/02/2017 PSYCHIATRIC PROGRESS NOTE This late entry 06/02/2017 covers elements not covered in my initial note of 06/02/2017. SUBJECTIVE: Met with the patient in the evening. The patient slept 6 hours previous evening, less intrusive, anxious, less psychotic. REVIEW OF SYSTEMS: No CV, , pulmonary, eye system symptoms on review. MENTAL STATUS EXAM: Oriented to herself, situation. Speech is coherent, has some latency. Abstraction fair, computation impaired, language function is intact, attention span short. Mood and affect is less labile. LABORATORY DATA: Reviewed. IMPRESSION: Schizoaffective disorder, bipolar type, mixed with psychotic features, in partial remission. PLAN: Valproic acid level is therapeutic at 65. Continue rest of the psychotropics mentioned in my initial note. MAN Wan العلي MD DR: PATIENCE/ilia JOB#: [id number] / [id number]
[2017-06-04] MEDS: traZODone 50 MG TABLET. PO PRN ×2 (01:21→23:40)
[2017-06-04] MEDS: LEVOTHYROXINE 150 MCG TABLET PO SCH (04:44)
[2017-06-04 06:20] VITALS: BP 116/58
[2017-06-04] MEDS: buPROPion SR 150 MG TABLET.SA PO SCH (08:02)
[2017-06-04] MEDS: CHOLECALCIFEROL (VITAMIN D3) 1,000 UNIT TABLET PO SCH (08:02)
[2017-06-04] MEDS: DIVALPROEX 125 MG CAP.SPRINK PO SCH ×2 (08:02→20:21)
[2017-06-04] MEDS: FUROSEMIDE 40 MG TABLET PO SCH ×2 (08:02→13:53)
[2017-06-04] MEDS: POTASSIUM CHLORIDE 10 MEQ TABLET.ER. PO SCH (08:03)
[2017-06-04] MEDS: MULTIVITAMIN with MINERAL TABLET. PO SCH (08:03)
[2017-06-04] MEDS: CALCIUM CARB/VIT D3 500/200 TABLET PO SCH (08:03)
[2017-06-04] MEDS: risperiDONE 1 MG TABLET. PO SCH ×2 (08:03→20:21)
[2017-06-04] MEDS: MINERAL OIL/PETROLATUM TOPICAL CREAM 113GM JAR. TP SCH (08:04)
[2017-06-04 16:35] VITALS: BP 114/62
[2017-06-04] MEDS: IBUPROFEN 400 MG TABLET. PO PRN (17:35)
[2017-06-04] MEDS: SENNOSIDES 8.6 MG TABLET PO SCH (20:21)
[2017-06-04] MEDS: QUEtiapine 100 MG TABLET. PO SCH (20:21)
[2017-06-04] MEDS: ATORVASTATIN CALCIUM 10 MG TABLET. PO SCH (20:21)
[2017-06-04] MEDS: traZODone 100 MG TABLET. PO SCH (20:22)
--- NOTE | 2017-06-04 21:14 | PDOC ---
Exam Note: Maulik Note: Please also refer to the separate dictated note~for this date of service dictated separately.~Patient seen individually. Discussed the patient with Nursing staff reviewed the chart.~Reviewed interim history and current functioning. Reviewed vital signs,~Labs/ Radiology~and current medications noted below. Continue current treatment with the changes noted in the dictated addendum note Assessment: Vital Signs: Vital Signs Date Time Temp Pulse Resp B/P (MAP) Pulse Ox O2 Delivery O2 Flow Rate FiO2 06/04/17 16:35 97.7 77 18 114/62 (79) 99 06/03/17 06:40 Room Air I&O Intake and Output 06/04/17 07:00 Intake Total 1900 ml Balance 1900 ml Intake Oral 1900 ml # Voids 1 Current Medications: Meds: Current Medications Multi-Ingredient Ointment (Analgesic [place]) 1 tiffany PRN QID PRN TP MUSCLE PAIN; Start 05/24/17 at 01:15 Al Hydroxide/Mg Hydroxide (Mylanta Plus Xs) 15 ml PRN AFTMEALHC PRN PO DYSPEPSIA; Start 05/24/17 at 01:15 Nicotine (Nicoderm Cq 21mg) 1 patch DAILY TD Last administered on 05/26/17at 09: 51; Start 05/24/17 at 09:00; Stop 05/26/17 at 14:25; Status DC Bupropion HCl (Wellbutrin Sr) 150 mg DAILY PO Last administered on 06/04/17at 08 :02; Start 05/24/17 at 09:00 Divalproex Sodium (Depakote Sprinkles) 250 mg DAILY PO Last administered on at 09:51; Start 05/24/17 at 09:00; Stop 05/26/17 at 19:20; Status DC Divalproex Sodium (Depakote Sprinkles) 500 mg QHS PO Last administered on at 20:43; Start 05/24/17 at 21:00; Stop 05/26/17 at 19:20; Status DC Quetiapine Fumarate (SEROquel) 100 mg QHS PO Last administered on 06/04/17at 20: 21; Start 05/24/17 at 21:00 Risperidone (RisperDAL) 3 mg BID PO Last administered on 06/04/17at 20:21; Start 05/24/17 at 09:00 Olanzapine (ZyPREXA ZYDIS) 5 mg PRN Q2HR PRN PO Psych; Start 05/24/17 at 01:15 Acetaminophen (Tylenol) 650 mg PRN Q6HRS PRN PO PAIN / TEMP; Start 05/24/17 at 01:30; Status UNV Atorvastatin Calcium (Lipitor) 10 mg QHS PO Last administered on 06/04/17 20: 21; Start 05/24/17 at 21:00 Vitamin D (Vitamin D3) 1,000 unit DAILY PO Last administered on 06/04/17 08:02 ; Start 05/24/17 at 09:00 Furosemide (Lasix) 40 mg BID92 PO Last administered on 06/04/17 13:53; Start 05/24/17 at 09:00 Guaifenesin (Robitussin Dm) 5 ml PRN Q6HRS PRN PO CONGESTION Last administered on 05/26/17 14:51; Start 05/24/17 at 01:30 Ibuprofen (Motrin) 400 mg PRN Q4HRS PRN PO MODERATE PAIN Last administered on 17:35; Start 05/24/17 at 01:30 Levothyroxine Sodium (Synthroid) 150 mcg DAILY07 PO Last administered on 04:27; Start 05/24/17 at 07:00; Stop 05/28/17 at 13:46; Status DC Magnesium Hydroxide (Milk Of Magnesia) 2,400 mg PRN Q24HRS PRN PO CONSTIPATION ; Start 05/24/17 at 01:30; Status UNV Polyethylene Glycol (miraLAX) 17 gm PRN DAILY PRN PO CONSTIPATION Last administered on 06/02/17 06:29; Start 05/24/17 at 01:30 Sennosides (Senna) 8.6 mg QHS PO Last administered on 06/04/17 20:21; Start at 21:00 Calcium Carbonate/ Glycine (Tums) 500 mg PRN Q4HRS PRN PO INDIGESTION Last administered on 06/01/17 14:38; Start 05/24/17 at 02:00 Calcium/Vitamin D (Oscal D 500mg/ 200uts) 1 tab DAILYWBKFT PO Last administered on 06/04/17 08:03; Start 05/24/17 at 08:00 Loperamide HCl (Imodium) 2 mg PRN Q2MIN PRN PO DIARRHEA; Start 05/24/17 at 02: 00 Cetirizine HCl (ZyrTEC) 10 mg PRN DAILY PRN PO ALLERGIES; Start 05/24/17 at 09: 00 Multi-Ingred Cream/Lotion/Oil/ Oint (Hydrocerin) 1 tiffany DAILY TP Last administered on 06/03/17 08:28; Start 05/24/17 at 09:00 Multivitamins/ Calcium (Thera-M Plus) 1 tab DAILY PO Last administered on 08:03; Start 05/24/17 at 09:00 Potassium Chloride (Klor-Con) 10 meq DAILYWBKFT PO Last administered on 08:03; Start 05/24/17 at 08:00 Acetaminophen (Tylenol) 650 mg PRN Q6HRS PRN PO PAIN / TEMP Last administered on 06/03/17 20:03; Start 05/24/17 at 02:00 Magnesium Hydroxide (Milk Of Magnesia) 2,400 mg PRN Q24HRS PRN PO CONSTIPATION ; Start 05/24/17 at 02:00 Nicotine Polacrilex (Nicorette Gum) 2 mg PRN Q2HR PRN BC SMOKING CESSATION Last administered on 05/27/17 20:41; Start 05/26/17 at 14:30 Divalproex Sodium (Depakote Sprinkles) 500 mg DAILY PO Last administered on 08:02; Start 05/27/17 at 09:00 Divalproex Sodium (Depakote Sprinkles) 750 mg QHS PO Last administered on 20:21; Start 05/26/17 at 21:00 Trazodone HCl (Desyrel) 50 mg QHS PO Last administered on 05/29/17 19:41; Start 05/26/17 at 21:00; Stop 05/30/17 at 19:49; Status DC Trazodone HCl (Desyrel) 50 mg PRN QHS PRN PO INSOMNIA Last administered on 06/04 01:21; Start 05/26/17 at 19:15 Famotidine (Pepcid Vial) 20 mg STK-MED ONCE .ROUTE ; Start 05/28/17 at 11:59; Stop 05/28/17 at 12:00; Status DC Levothyroxine Sodium (Synthroid) 150 mcg DAILY06 PO Last administered on at 04:44; Start 05/29/17 at 06:00 Trazodone HCl (Desyrel) 100 mg QHS PO Last administered on 06/04/17at 20:22; Start 05/30/17 at 21:00 Active Scripts Active Reported Vitamin D3 (Cholecalciferol (Vitamin D3)) 1,000 Unit Tablet 1,000 Unit PO DAILY Calcium (Calcium Carbonate) 500 Mg Tab.chew 500 Mg PO PRN Q4HRS PRN Senna Concentrate (Sennosides) 8.6 Mg Tablet 8.6 Mg PO QHS Guaifenesin Dm Syrup (Guaifenesin/Dextromethorphan) 5 Ml Syrup 5 Ml PO PRN Q6HRS PRN Robitussin Cough-Chest Dm Liq (Guaifenesin/Dextromethorphan) 237 Ml Liquid 237 Ml PO Risperdal (Risperidone) 3 Mg Tablet 3 Mg PO BID Seroquel (Quetiapine Fumarate) 200 Mg Tablet 200 Mg PO QHS Potassium Chloride 10 Meq Tablet.er 10 Meq PO DAILY Miralax (Polyethylene Glycol 3350) 119 Gm Powder 17 Gm PO PRN DAILY PRN Multi Vitamin Daily (Multivitamin) 1 Each Tablet 1 Tab PO DAILY Milk Of Magnesia (Magnesium Hydroxide) 400 Mg/5 Ml Oral.susp 2,400 Mg PO PRN Q24HRS PRN Loratadine 10 Mg Tablet 10 Mg PO PRN Q24HRS PRN Loperamide (Loperamide Hcl) 2 Mg Tablet 2 Mg PO PRN Q2HR PRN MDD 16mg Loperamide (Loperamide Hcl) 1 Mg/7.5 Ml Liquid 2 Mg PO PRN Q2HR PRN MDD 16mg Levothyroxine Sodium 150 Mcg Tablet 150 Mcg PO DAILY07 Ibuprofen 400 Mg Tablet 400 Mg PO PRN Q4HRS PRN Hydrocerin Lotion (Mineral Oil/I-Prop Myr/Water) 472 Ml Lotion 1 Tiffany TP DAILY Lasix (Furosemide) 40 Mg Tablet 40 Mg PO BID92 Depakote Sprinkle (Divalproex Sodium) 125 Mg Cap.sprink 500 Mg PO QHS Depakote Sprinkle (Divalproex Sodium) 125 Mg Cap.sprink 250 Mg PO DAILY Calcium 600 + Vit D 400 Tablet (Calcium Carbonate/Vitamin D3) 1 Each Tablet 1 Tab PO DAILY Wellbutrin Sr (Bupropion Hcl) 150 Mg Tablet.er 150 Mg PO DAILY Atorvastatin Calcium 10 Mg Tablet 10 Mg PO QHS Tylenol (Acetaminophen) 325 Mg Tablet 650 Mg PO PRN Q6HRS PRN I have reviewed the current psychotropics carefully including drug interactions. Risk benefit ratio favors no change other than as noted in my dictated progress note. Diagnosis: Problems: (1) Schizoaffective disorder, bipolar type (2) Anxiety disorder (3) Impulse control disorder (4) Bipolar affective, mixed, sev w/ psych (5) Schizophrenia, disorganized, subchronic with acute exacerbation CHRIS العلي MD Jun 04, 2017 21:14
[2017-06-05 06:00] VITALS: BP 125/64
[2017-06-05] MEDS: LEVOTHYROXINE 150 MCG TABLET PO SCH (06:15)
[2017-06-05] MEDS: MULTIVITAMIN with MINERAL TABLET. PO SCH (07:49)
[2017-06-05] MEDS: FUROSEMIDE 40 MG TABLET PO SCH ×2 (07:49→14:08)
[2017-06-05] MEDS: CHOLECALCIFEROL (VITAMIN D3) 1,000 UNIT TABLET PO SCH (07:49)
[2017-06-05] MEDS: DIVALPROEX 125 MG CAP.SPRINK PO SCH ×2 (07:49→19:17)
[2017-06-05] MEDS: CALCIUM CARB/VIT D3 500/200 TABLET PO SCH (07:49)
[2017-06-05] MEDS: buPROPion SR 150 MG TABLET.SA PO SCH (07:49)
[2017-06-05] MEDS: risperiDONE 1 MG TABLET. PO SCH ×2 (07:49→19:18)
[2017-06-05] MEDS: MINERAL OIL/PETROLATUM TOPICAL CREAM 113GM JAR. TP SCH (07:51)
[2017-06-05] MEDS: POTASSIUM CHLORIDE 10 MEQ TABLET.ER. PO SCH (07:51)
[2017-06-05 07:59] LABS: BASO % 0 % (0-3); EOS # 0.2 x10^3/uL (0.0-0.7); EOS % 3 % (0-3); HEMATOCRIT 34.6 % (36.0-47.0); HEMOGLOBIN 12.1 g/dL (12.0-15.5); LYMPH # 1.1 x10^3/uL (1.0-4.8); LYMPH % 21 % (24-48); MEAN CORPUSCULAR HEMOGLOBIN 32 pg (25-35); MEAN CORPUSCULAR HGB CONC 35 g/dL (31-37); MEAN CORPUSCULAR VOLUME 91 fL (79-100); MONO # 1.1 x10^3/uL (0.0-1.1); MONO % 20 % (0-9); NEUT % 56 % (31-73); PLATELET COUNT 266 x10^3/uL (140-400); RED CELL DISTRIBUTION WIDTH 12.5 % (11.5-14.5); WHITE BLOOD COUNT 5.4 x10^3/uL (4.0-11.0)
[2017-06-05 08:07] LABS: ALBUMIN 3.4 g/dL (3.4-5.0); CALCIUM 9.5 mg/dL (8.5-10.1); CREATININE 0.6 mg/dL (0.6-1.0); GFR 100.3; MAGNESIUM 1.9 mg/dL (1.8-2.4); TOTAL BILIRUBIN 0.2 mg/dL (0.2-1.0); TOTAL PROTEIN 6.7 g/dL (6.4-8.2)
[2017-06-05 16:29] VITALS: BP 122/63
[2017-06-05] MEDS: ATORVASTATIN CALCIUM 10 MG TABLET. PO SCH (19:17)
[2017-06-05] MEDS: QUEtiapine 100 MG TABLET. PO SCH (19:17)
[2017-06-05] MEDS: traZODone 100 MG TABLET. PO SCH (19:17)
[2017-06-05] MEDS: SENNOSIDES 8.6 MG TABLET PO SCH (19:18)
[2017-06-05] MEDS: MELATONIN 3 MG TABLET PO SCH (20:16)
--- NOTE | 2017-06-05 23:01 | PDOC ---
Exam Note: Maulik Note: Please also refer to the separate dictated note~for this date of service dictated separately.~Patient seen individually. Discussed the patient with Nursing staff reviewed the chart.~Reviewed interim history and current functioning. Reviewed vital signs,~Labs/ Radiology~and current medications noted below. Continue current treatment with the changes noted in the dictated addendum note Assessment: Vital Signs: Vital Signs Date Time Temp Pulse Resp B/P (MAP) Pulse Ox O2 Delivery O2 Flow Rate FiO2 06/05/17 16:29 98.1 65 18 122/63 (82) 92 06/03/17 06:40 Room Air I&O Intake and Output 06/05/17 07:00 Intake Total 1080 ml Balance 1080 ml Intake Oral 1080 ml Labs: Laboratory Tests Test 06/05/17 07:41 White Blood Count 5.4 x10^3/uL (4.0-11.0) Red Blood Count 3.80 x10^6/uL (3.50-5.40) Hemoglobin 12.1 g/dL (12.0-15.5) Hematocrit 34.6 % (36.0-47.0) L Mean Corpuscular Volume 91 fL (79-100) Mean Corpuscular Hemoglobin 32 pg (25-35) Mean Corpuscular Hemoglobin Concent 35 g/dL (31-37) Red Cell Distribution Width 12.5 % (11.5-14.5) Platelet Count 266 x10^3/uL (140-400) Neutrophils (%) (Auto) 56 % (31-73) Lymphocytes (%) (Auto) 21 % (24-48) L Monocytes (%) (Auto) 20 % (0-9) H Eosinophils (%) (Auto) 3 % (0-3) Basophils (%) (Auto) 0 % (0-3) Neutrophils # (Auto) 3.0 x10^3uL (1.8-7.7) Lymphocytes # (Auto) 1.1 x10^3/uL (1.0-4.8) Monocytes # (Auto) 1.1 x10^3/uL (0.0-1.1) Eosinophils # (Auto) 0.2 x10^3/uL (0.0-0.7) Basophils # (Auto) 0.0 x10^3/uL (0.0-0.2) Sodium Level 130 mmol/L (136-145) L Potassium Level 4.0 mmol/L (3.5-5.1) Chloride Level 94 mmol/L (98-107) L Carbon Dioxide Level 33 mmol/L (21-32) H Anion Gap 3 (6-14) L Blood Urea Nitrogen 7 mg/dL (7-20) Creatinine 0.6 mg/dL (0.6-1.0) Estimated GFR (Cockcroft-Gault) 100.3 BUN/Creatinine Ratio 12 (6-20) Glucose Level 86 mg/dL (70-99) Calcium Level 9.5 mg/dL (8.5-10.1) Magnesium Level 1.9 mg/dL (1.8-2.4) Total Bilirubin 0.2 mg/dL (0.2-1.0) Aspartate Amino Transferase (AST) 7 U/L (15-37) L Alanine Aminotransferase (ALT) 14 U/L (14-59) Alkaline Phosphatase 64 U/L (46-116) Total Protein 6.7 g/dL (6.4-8.2) Albumin 3.4 g/dL (3.4-5.0) Albumin/Globulin Ratio 1.0 (1.0-1.7) Current Medications: Meds: Current Medications Multi-Ingredient Ointment (Analgesic [place]) 1 tiffany PRN QID PRN TP MUSCLE PAIN; Start 05/24/17 at 01:15 Al Hydroxide/Mg Hydroxide (Mylanta Plus Xs) 15 ml PRN AFTMEALHC PRN PO DYSPEPSIA; Start 05/24/17 at 01:15 Nicotine (Nicoderm Cq 21mg) 1 patch DAILY TD Last administered on 05/26/17at 09: 51; Start 05/24/17 at 09:00; Stop 05/26/17 at 14:25; Status DC Bupropion HCl (Wellbutrin Sr) 150 mg DAILY PO Last administered on 06/05/17at 07 :49; Start 05/24/17 at 09:00; Stop 06/05/17 at 19:49; Status DC Divalproex Sodium (Depakote Sprinkles) 250 mg DAILY PO Last administered on at 09:51; Start 05/24/17 at 09:00; Stop 05/26/17 at 19:20; Status DC Divalproex Sodium (Depakote Sprinkles) 500 mg QHS PO Last administered on 20:43; Start 05/24/17 at 21:00; Stop 05/26/17 at 19:20; Status DC Quetiapine Fumarate (SEROquel) 100 mg QHS PO Last administered on 06/05/17 19: 17; Start 05/24/17 at 21:00 Risperidone (RisperDAL) 3 mg BID PO Last administered on 06/05/17 19:18; Start 05/24/17 at 09:00 Olanzapine (ZyPREXA ZYDIS) 5 mg PRN Q2HR PRN PO Psych; Start 05/24/17 at 01:15 Acetaminophen (Tylenol) 650 mg PRN Q6HRS PRN PO PAIN / TEMP; Start 05/24/17 at 01:30; Status UNV Atorvastatin Calcium (Lipitor) 10 mg QHS PO Last administered on 06/05/17 19: 17; Start 05/24/17 at 21:00 Vitamin D (Vitamin D3) 1,000 unit DAILY PO Last administered on 06/05/17 07:49 ; Start 05/24/17 at 09:00 Furosemide (Lasix) 40 mg BID92 PO Last administered on 06/05/17 14:08; Start 05/24/17 at 09:00 Guaifenesin (Robitussin Dm) 5 ml PRN Q6HRS PRN PO CONGESTION Last administered on 05/26/17 14:51; Start 05/24/17 at 01:30 Ibuprofen (Motrin) 400 mg PRN Q4HRS PRN PO MODERATE PAIN Last administered on 17:35; Start 05/24/17 at 01:30 Levothyroxine Sodium (Synthroid) 150 mcg DAILY07 PO Last administered on 04:27; Start 05/24/17 at 07:00; Stop 05/28/17 at 13:46; Status DC Magnesium Hydroxide (Milk Of Magnesia) 2,400 mg PRN Q24HRS PRN PO CONSTIPATION ; Start 05/24/17 at 01:30; Status UNV Polyethylene Glycol (miraLAX) 17 gm PRN DAILY PRN PO CONSTIPATION Last administered on 06/02/17at 06:29; Start 05/24/17 at 01:30 Sennosides (Senna) 8.6 mg QHS PO Last administered on 06/05/17 19:18; Start at 21:00 Calcium Carbonate/ Glycine (Tums) 500 mg PRN Q4HRS PRN PO INDIGESTION Last administered on 06/01/17 14:38; Start 05/24/17 at 02:00 Calcium/Vitamin D (Oscal D 500mg/ 200uts) 1 tab DAILYWBKFT PO Last administered on 06/05/17 07:49; Start 05/24/17 at 08:00 Loperamide HCl (Imodium) 2 mg PRN Q2MIN PRN PO DIARRHEA; Start 05/24/17 at 02: 00 Cetirizine HCl (ZyrTEC) 10 mg PRN DAILY PRN PO ALLERGIES; Start 05/24/17 at 09: 00 Multi-Ingred Cream/Lotion/Oil/ Oint (Hydrocerin) 1 tiffany DAILY TP Last administered on 06/05/17 07:51; Start 05/24/17 at 09:00 Multivitamins/ Calcium (Thera-M Plus) 1 tab DAILY PO Last administered on 07:49; Start 05/24/17 at 09:00 Potassium Chloride (Klor-Con) 10 meq DAILYWBKFT PO Last administered on 07:51; Start 05/24/17 at 08:00 Acetaminophen (Tylenol) 650 mg PRN Q6HRS PRN PO PAIN / TEMP Last administered on 06/03/17 20:03; Start 05/24/17 at 02:00 Magnesium Hydroxide (Milk Of Magnesia) 2,400 mg PRN Q24HRS PRN PO CONSTIPATION ; Start 05/24/17 at 02:00 Nicotine Polacrilex (Nicorette Gum) 2 mg PRN Q2HR PRN BC SMOKING CESSATION Last administered on 05/27/17 20:41; Start 05/26/17 at 14:30 Divalproex Sodium (Depakote Sprinkles) 500 mg DAILY PO Last administered on 07:49; Start 05/27/17 at 09:00 Divalproex Sodium (Depakote Sprinkles) 750 mg QHS PO Last administered on 4/27/ 18at 19:17; Start 05/26/17 at 21:00 Trazodone HCl (Desyrel) 50 mg QHS PO Last administered on 05/29/17at 19:41; Start 05/26/17 at 21:00; Stop 05/30/17 at 19:49; Status DC Trazodone HCl (Desyrel) 50 mg PRN QHS PRN PO INSOMNIA Last administered on 06/04at 23:40; Start 05/26/17 at 19:15; Stop 06/05/17 at 19:49; Status DC Famotidine (Pepcid Vial) 20 mg STK-MED ONCE .ROUTE ; Start 05/28/17 at 11:59; Stop 05/28/17 at 12:00; Status DC Levothyroxine Sodium (Synthroid) 150 mcg DAILY06 PO Last administered on at 06:15; Start 05/29/17 at 06:00 Trazodone HCl (Desyrel) 100 mg QHS PO Last administered on 06/04/17at 20:22; Start 05/30/17 at 21:00; Stop 06/05/17 at 19:49; Status DC Melatonin 6 mg QHS PO Last administered on 06/05/17at 20:16; Start 06/05/17 at 21:00 Active Scripts Active Reported Vitamin D3 (Cholecalciferol (Vitamin D3)) 1,000 Unit Tablet 1,000 Unit PO DAILY Calcium (Calcium Carbonate) 500 Mg Tab.chew 500 Mg PO PRN Q4HRS PRN Senna Concentrate (Sennosides) 8.6 Mg Tablet 8.6 Mg PO QHS Guaifenesin Dm Syrup (Guaifenesin/Dextromethorphan) 5 Ml Syrup 5 Ml PO PRN Q6HRS PRN Robitussin Cough-Chest Dm Liq (Guaifenesin/Dextromethorphan) 237 Ml Liquid 237 Ml PO Risperdal (Risperidone) 3 Mg Tablet 3 Mg PO BID Seroquel (Quetiapine Fumarate) 200 Mg Tablet 200 Mg PO QHS Potassium Chloride 10 Meq Tablet.er 10 Meq PO DAILY Miralax (Polyethylene Glycol 3350) 119 Gm Powder 17 Gm PO PRN DAILY PRN Multi Vitamin Daily (Multivitamin) 1 Each Tablet 1 Tab PO DAILY Milk Of Magnesia (Magnesium Hydroxide) 400 Mg/5 Ml Oral.susp 2,400 Mg PO PRN Q24HRS PRN Loratadine 10 Mg Tablet 10 Mg PO PRN Q24HRS PRN Loperamide (Loperamide Hcl) 2 Mg Tablet 2 Mg PO PRN Q2HR PRN MDD 16mg Loperamide (Loperamide Hcl) 1 Mg/7.5 Ml Liquid 2 Mg PO PRN Q2HR PRN MDD 16mg Levothyroxine Sodium 150 Mcg Tablet 150 Mcg PO DAILY07 Ibuprofen 400 Mg Tablet 400 Mg PO PRN Q4HRS PRN Hydrocerin Lotion (Mineral Oil/I-Prop Myr/Water) 472 Ml Lotion 1 Tiffany TP DAILY Lasix (Furosemide) 40 Mg Tablet 40 Mg PO BID92 Depakote Sprinkle (Divalproex Sodium) 125 Mg Cap.sprink 500 Mg PO QHS Depakote Sprinkle (Divalproex Sodium) 125 Mg Cap.sprink 250 Mg PO DAILY Calcium 600 + Vit D 400 Tablet (Calcium Carbonate/Vitamin D3) 1 Each Tablet 1 Tab PO DAILY Wellbutrin Sr (Bupropion Hcl) 150 Mg Tablet.er 150 Mg PO DAILY Atorvastatin Calcium 10 Mg Tablet 10 Mg PO QHS Tylenol (Acetaminophen) 325 Mg Tablet 650 Mg PO PRN Q6HRS PRN I have reviewed the current psychotropics carefully including drug interactions. Risk benefit ratio favors no change other than as noted in my dictated progress note. Diagnosis: Problems: (1) Schizoaffective disorder, bipolar type (2) Anxiety disorder (3) Impulse control disorder (4) Bipolar affective, mixed, sev w/ psych (5) Schizophrenia, disorganized, subchronic with acute exacerbation CHRIS العلي MD Jun 05, 2017 23:01
[2017-06-06] MEDS ORDERED: NICO2GUM42 BC (02:58)
[2017-06-06] MEDS ORDERED: OLAN5TAB5 PO (03:00)
[2017-06-06] MEDS ORDERED: MELA3TAB2 PO (03:01)
[2017-06-06] MEDS ORDERED: METH29OI TP (03:03)
[2017-06-06] MEDS ORDERED: MAG355OR22 PO (03:06)
[2017-06-06] MEDS: LEVOTHYROXINE 150 MCG TABLET PO SCH (06:08)
[2017-06-06 06:37] VITALS: BP 115/55
[2017-06-06] MEDS: risperiDONE 1 MG TABLET. PO SCH ×2 (07:52→20:25)
[2017-06-06] MEDS: CALCIUM CARB/VIT D3 500/200 TABLET PO SCH (07:52)
[2017-06-06] MEDS: FUROSEMIDE 40 MG TABLET PO SCH ×2 (07:52→14:08)
[2017-06-06] MEDS: POTASSIUM CHLORIDE 10 MEQ TABLET.ER. PO SCH (07:52)
[2017-06-06] MEDS: CHOLECALCIFEROL (VITAMIN D3) 1,000 UNIT TABLET PO SCH (07:52)
[2017-06-06] MEDS: MULTIVITAMIN with MINERAL TABLET. PO SCH (07:52)
[2017-06-06] MEDS: DIVALPROEX 125 MG CAP.SPRINK PO SCH ×2 (07:53→20:25)
[2017-06-06] MEDS: MINERAL OIL/PETROLATUM TOPICAL CREAM 113GM JAR. TP SCH (07:54)
--- NOTE | 2017-06-06 16:34 | PN ---
DATE: 06/03/2017 This late entry, 06/03/2017, covers elements not covered in my initial note of 06/03/2017. SUBJECTIVE: I met with the patient the evening of 06/03/2017. Overall per nursing report, the patient had a better day. She remains intermittently anxious, a little confused at times, told the nursing staff it was April when questioned about the date. REVIEW OF SYSTEMS: No CV, , pulmonary, eye, ENT system symptoms on review. Reliability poor. MENTAL STATUS EXAM: Oriented to herself, situation. Speech coherent, less pressured. Abstraction fair, computation impaired, language function intact, attention span short. Mood and affect, lability is improved. LABORATORY DATA: Reviewed. IMPRESSION: Schizoaffective disorder, bipolar type, mixed, in partial remission. PLAN: Continue psychotropics mentioned in my initial note. MAN Wan العلي MD DR: PATIENCE/ilia JOB#: [id number] / [id number]
[2017-06-06 17:33] VITALS: BP 104/62
[2017-06-06] MEDS: QUEtiapine 100 MG TABLET. PO SCH (20:24)
[2017-06-06] MEDS: MELATONIN 3 MG TABLET PO SCH (20:25)
[2017-06-06] MEDS: SENNOSIDES 8.6 MG TABLET PO SCH (20:25)
[2017-06-06] MEDS: ATORVASTATIN CALCIUM 10 MG TABLET. PO SCH (20:25)
--- NOTE | 2017-06-06 21:44 | PN ---
DATE: 06/04/2017 This late entry 06/04/2017 covers elements not covered in my initial note 06/04/2017. The patient was staffed at a treatment team meeting with the entire team in the morning, seen individually in the evening, did not sleep at all the previous evening and she goes for a day of no sleep and then catches up on it. No CV, , pulmonary, eye system symptoms on review. MENTAL STATUS EXAM: Oriented to herself and situation. Speech has some latency, coherent. Abstraction fair, computation impaired, language function intact. Mood and affect remain somewhat labile, but improved. LABORATORY DATA: Reviewed. IMPRESSION: Unchanged from initial note. PLAN: Continue current psychotropics. We will have to do something for the sleep depending on how she does night of 06/04/2017. MAN Wan العلي MD DR: PATIENCE/ilia JOB#: [id number] / [id number]
--- NOTE | 2017-06-06 22:45 | PDOC ---
Exam Note: Maulik Note: Please also refer to the separate dictated note~for this date of service dictated separately.~Patient seen individually. Discussed the patient with Nursing staff reviewed the chart.~Reviewed interim history and current functioning. Reviewed vital signs,~Labs/ Radiology~and current medications noted below. Continue current treatment with the changes noted in the dictated addendum note Assessment: Vital Signs: Vital Signs Date Time Temp Pulse Resp B/P (MAP) Pulse Ox O2 Delivery O2 Flow Rate FiO2 06/06/17 17:33 98.2 83 20 104/62 (76) 98 Room Air I&O Intake and Output 06/06/17 07:00 Intake Total 1560 ml Balance 1560 ml Intake Oral 1560 ml # Bowel Movements 1 Current Medications: Meds: Current Medications Multi-Ingredient Ointment (Analgesic [place]) 1 tiffany PRN QID PRN TP MUSCLE PAIN; Start 05/24/17 at 01:15 Al Hydroxide/Mg Hydroxide (Mylanta Plus Xs) 15 ml PRN AFTMEALHC PRN PO DYSPEPSIA; Start 05/24/17 at 01:15 Nicotine (Nicoderm Cq 21mg) 1 patch DAILY TD Last administered on 05/26/17at 09: 51; Start 05/24/17 at 09:00; Stop 05/26/17 at 14:25; Status DC Bupropion HCl (Wellbutrin Sr) 150 mg DAILY PO Last administered on 06/05/17at 07 :49; Start 05/24/17 at 09:00; Stop 06/05/17 at 19:49; Status DC Divalproex Sodium (Depakote Sprinkles) 250 mg DAILY PO Last administered on at 09:51; Start 05/24/17 at 09:00; Stop 05/26/17 at 19:20; Status DC Divalproex Sodium (Depakote Sprinkles) 500 mg QHS PO Last administered on at 20:43; Start 05/24/17 at 21:00; Stop 05/26/17 at 19:20; Status DC Quetiapine Fumarate (SEROquel) 100 mg QHS PO Last administered on 06/06/17at 20: 24; Start 05/24/17 at 21:00 Risperidone (RisperDAL) 3 mg BID PO Last administered on 06/06/17at 20:25; Start 05/24/17 at 09:00 Olanzapine (ZyPREXA ZYDIS) 5 mg PRN Q2HR PRN PO Psych; Start 05/24/17 at 01:15 Acetaminophen (Tylenol) 650 mg PRN Q6HRS PRN PO PAIN / TEMP; Start 05/24/17 at 01:30; Status UNV Atorvastatin Calcium (Lipitor) 10 mg QHS PO Last administered on 06/06/17 20: 25; Start 05/24/17 at 21:00 Vitamin D (Vitamin D3) 1,000 unit DAILY PO Last administered on 06/06/17 07:52 ; Start 05/24/17 at 09:00 Furosemide (Lasix) 40 mg BID92 PO Last administered on 06/06/17 14:08; Start 05/24/17 at 09:00 Guaifenesin (Robitussin Dm) 5 ml PRN Q6HRS PRN PO CONGESTION Last administered on 05/26/17 14:51; Start 05/24/17 at 01:30 Ibuprofen (Motrin) 400 mg PRN Q4HRS PRN PO MODERATE PAIN Last administered on 17:35; Start 05/24/17 at 01:30 Levothyroxine Sodium (Synthroid) 150 mcg DAILY07 PO Last administered on 04:27; Start 05/24/17 at 07:00; Stop 05/28/17 at 13:46; Status DC Magnesium Hydroxide (Milk Of Magnesia) 2,400 mg PRN Q24HRS PRN PO CONSTIPATION ; Start 05/24/17 at 01:30; Status UNV Polyethylene Glycol (miraLAX) 17 gm PRN DAILY PRN PO CONSTIPATION Last administered on 06/02/17 06:29; Start 05/24/17 at 01:30 Sennosides (Senna) 8.6 mg QHS PO Last administered on 06/06/17 20:25; Start at 21:00 Calcium Carbonate/ Glycine (Tums) 500 mg PRN Q4HRS PRN PO INDIGESTION Last administered on 06/01/17 14:38; Start 05/24/17 at 02:00 Calcium/Vitamin D (Oscal D 500mg/ 200uts) 1 tab DAILYWBKFT PO Last administered on 06/06/17 07:52; Start 05/24/17 at 08:00 Loperamide HCl (Imodium) 2 mg PRN Q2MIN PRN PO DIARRHEA; Start 05/24/17 at 02: 00 Cetirizine HCl (ZyrTEC) 10 mg PRN DAILY PRN PO ALLERGIES; Start 05/24/17 at 09: 00 Multi-Ingred Cream/Lotion/Oil/ Oint (Hydrocerin) 1 tiffany DAILY TP Last administered on 06/06/17 07:54; Start 05/24/17 at 09:00 Multivitamins/ Calcium (Thera-M Plus) 1 tab DAILY PO Last administered on 07:52; Start 05/24/17 at 09:00 Potassium Chloride (Klor-Con) 10 meq DAILYWBKFT PO Last administered on 07:52; Start 05/24/17 at 08:00 Acetaminophen (Tylenol) 650 mg PRN Q6HRS PRN PO PAIN / TEMP Last administered on 06/03/17 20:03; Start 05/24/17 at 02:00 Magnesium Hydroxide (Milk Of Magnesia) 2,400 mg PRN Q24HRS PRN PO CONSTIPATION ; Start 05/24/17 at 02:00 Nicotine Polacrilex (Nicorette Gum) 2 mg PRN Q2HR PRN BC SMOKING CESSATION Last administered on 05/27/17 20:41; Start 05/26/17 at 14:30 Divalproex Sodium (Depakote Sprinkles) 500 mg DAILY PO Last administered on 07:53; Start 05/27/17 at 09:00 Divalproex Sodium (Depakote Sprinkles) 750 mg QHS PO Last administered on 20:25; Start 05/26/17 at 21:00 Trazodone HCl (Desyrel) 50 mg QHS PO Last administered on 05/29/17 19:41; Start 05/26/17 at 21:00; Stop 05/30/17 at 19:49; Status DC Trazodone HCl (Desyrel) 50 mg PRN QHS PRN PO INSOMNIA Last administered on 06/04 23:40; Start 05/26/17 at 19:15; Stop 06/05/17 at 19:49; Status DC Famotidine (Pepcid Vial) 20 mg STK-MED ONCE .ROUTE ; Start 05/28/17 at 11:59; Stop 05/28/17 at 12:00; Status DC Levothyroxine Sodium (Synthroid) 150 mcg DAILY06 PO Last administered on at 06:08; Start 05/29/17 at 06:00 Trazodone HCl (Desyrel) 100 mg QHS PO Last administered on 06/04/17at 20:22; Start 05/30/17 at 21:00; Stop 06/05/17 at 19:49; Status DC Melatonin 6 mg QHS PO Last administered on 06/06/17at 20:25; Start 06/05/17 at 21:00 Active Scripts Active Reported Antacid Liquid (Mag Hydrox/Al Hydrox/Simeth) 355 Ml Oral.susp 355 Ml PO PRN AFTMEAL PRN Analgesic [place] (Methyl Salicylate/Menthol) 28 Gm Oint...g. 1 Gm TP PRN QID PRN Melatonin 3 Mg Tablet 6 Mg PO HS Zyprexa Zydis (Olanzapine) 5 Mg Tab.rapdis 5 Mg PO PRN Q2HR PRN Nicotine Gum (Nicotine Polacrilex) 2 Mg Gum 2 Mg BC PRN Q2HR PRN Vitamin D3 (Cholecalciferol (Vitamin D3)) 1,000 Unit Tablet 1,000 Unit PO DAILY Calcium (Calcium Carbonate) 500 Mg Tab.chew 500 Mg PO PRN Q4HRS PRN Senna Concentrate (Sennosides) 8.6 Mg Tablet 8.6 Mg PO QHS Guaifenesin Dm Syrup (Guaifenesin/Dextromethorphan) 5 Ml Syrup 5 Ml PO PRN Q6HRS PRN Robitussin Cough-Chest Dm Liq (Guaifenesin/Dextromethorphan) 237 Ml Liquid 237 Ml PO Risperdal (Risperidone) 3 Mg Tablet 3 Mg PO BID Seroquel (Quetiapine Fumarate) 200 Mg Tablet 200 Mg PO QHS Potassium Chloride 10 Meq Tablet.er 10 Meq PO DAILY Miralax (Polyethylene Glycol 3350) 119 Gm Powder 17 Gm PO PRN DAILY PRN Multi Vitamin Daily (Multivitamin) 1 Each Tablet 1 Tab PO DAILY Milk Of Magnesia (Magnesium Hydroxide) 400 Mg/5 Ml Oral.susp 2,400 Mg PO PRN Q24HRS PRN Loratadine 10 Mg Tablet 10 Mg PO PRN Q24HRS PRN Loperamide (Loperamide Hcl) 2 Mg Tablet 2 Mg PO PRN Q2HR PRN MDD 16mg Loperamide (Loperamide Hcl) 1 Mg/7.5 Ml Liquid 2 Mg PO PRN Q2HR PRN MDD 16mg Levothyroxine Sodium 150 Mcg Tablet 150 Mcg PO DAILY07 Ibuprofen 400 Mg Tablet 400 Mg PO PRN Q4HRS PRN Hydrocerin Lotion (Mineral Oil/I-Prop Myr/Water) 472 Ml Lotion 1 Tiffany TP DAILY Lasix (Furosemide) 40 Mg Tablet 40 Mg PO BID92 Depakote Sprinkle (Divalproex Sodium) 125 Mg Cap.sprink 500 Mg PO QHS Depakote Sprinkle (Divalproex Sodium) 125 Mg Cap.sprink 250 Mg PO DAILY Calcium 600 + Vit D 400 Tablet (Calcium Carbonate/Vitamin D3) 1 Each Tablet 1 Tab PO DAILY Wellbutrin Sr (Bupropion Hcl) 150 Mg Tablet.er 150 Mg PO DAILY Atorvastatin Calcium 10 Mg Tablet 10 Mg PO QHS Tylenol (Acetaminophen) 325 Mg Tablet 650 Mg PO PRN Q6HRS PRN I have reviewed the current psychotropics carefully including drug interactions. Risk benefit ratio favors no change other than as noted in my dictated progress note. Diagnosis: Problems: (1) Schizoaffective disorder, bipolar type (2) Anxiety disorder (3) Impulse control disorder (4) Bipolar affective, mixed, sev w/ psych (5) Schizophrenia, disorganized, subchronic with acute exacerbation CHRIS العلي MD Jun 06, 2017 22:45
[2017-06-07] MEDS: LEVOTHYROXINE 150 MCG TABLET PO SCH (05:46)
[2017-06-07 06:29] VITALS: BP 115/64
[2017-06-07] MEDS: risperiDONE 1 MG TABLET. PO SCH ×2 (07:59→20:17)
[2017-06-07] MEDS: POTASSIUM CHLORIDE 10 MEQ TABLET.ER. PO SCH (07:59)
[2017-06-07] MEDS: CALCIUM CARB/VIT D3 500/200 TABLET PO SCH (07:59)
[2017-06-07] MEDS: FUROSEMIDE 40 MG TABLET PO SCH ×2 (07:59→12:49)
[2017-06-07] MEDS: DIVALPROEX 125 MG CAP.SPRINK PO SCH ×2 (07:59→20:19)
[2017-06-07] MEDS: MULTIVITAMIN with MINERAL TABLET. PO SCH (07:59)
[2017-06-07] MEDS: CHOLECALCIFEROL (VITAMIN D3) 1,000 UNIT TABLET PO SCH (07:59)
[2017-06-07] MEDS: MINERAL OIL/PETROLATUM TOPICAL CREAM 113GM JAR. TP SCH (08:00)
[2017-06-07 14:36] LABS: BASO % 0 % (0-3); EOS # 0.1 x10^3/uL (0.0-0.7); EOS % 2 % (0-3); HEMATOCRIT 35.2 % (36.0-47.0); HEMOGLOBIN 12.3 g/dL (12.0-15.5); LYMPH # 0.9 x10^3/uL (1.0-4.8); LYMPH % 12 % (24-48); MEAN CORPUSCULAR HEMOGLOBIN 32 pg (25-35); MEAN CORPUSCULAR HGB CONC 35 g/dL (31-37); MEAN CORPUSCULAR VOLUME 91 fL (79-100); MONO # 1.2 x10^3/uL (0.0-1.1); MONO % 17 % (0-9); NEUT % 69 % (31-73); PLATELET COUNT 283 x10^3/uL (140-400); RED BLOOD COUNT 3.88 x10^6/uL (3.50-5.40); RED CELL DISTRIBUTION WIDTH 12.8 % (11.5-14.5); WHITE BLOOD COUNT 7.2 x10^3/uL (4.0-11.0)
[2017-06-07 14:56] LABS: BACTERIA,URINE 0 /HPF (0-FEW); BILIRUBIN,URINE NEG (NEG); CLARITY,URINE CLEAR; COLOR,URINE STRAW; GLUCOSE,URINE NEG (NEG); NITRITE,URINE NEG (NEG); RBC,URINE 0 /HPF (0-2); UROBILINOGEN,URINE 0.2 mg/dL (0.2 mg/dL); WBC,URINE 0 /HPF (0-4)
[2017-06-07 15:17] LABS: ALBUMIN 3.5 g/dL (3.4-5.0); ALBUMIN/GLOBULIN RATIO 1.1 (1.0-1.7); CREATININE 0.5 mg/dL (0.6-1.0); GFR 123.8; POTASSIUM 3.9 mmol/L (3.5-5.1); TOTAL BILIRUBIN 0.3 mg/dL (0.2-1.0); TOTAL PROTEIN 6.8 g/dL (6.4-8.2)
[2017-06-07 16:26] VITALS: BP 127/77
[2017-06-07] MEDS ORDERED: hydrOXYzine HCL 25 MG TABLET PO PRN (18:30)
[2017-06-07] MEDS: ATORVASTATIN CALCIUM 10 MG TABLET. PO SCH (20:17)
[2017-06-07] MEDS: MELATONIN 3 MG TABLET PO SCH (20:18)
[2017-06-07] MEDS: QUEtiapine 100 MG TABLET. PO SCH (20:18)
[2017-06-07] MEDS: SENNOSIDES 8.6 MG TABLET PO SCH (20:19)
[2017-06-07] MEDS ORDERED: hydrOXYzine HCL 25 MG TABLET PO SCH (21:00)
--- NOTE | 2017-06-07 22:30 | PDOC ---
Exam Note: Maulik Note: Please also refer to the separate dictated note~for this date of service dictated separately.~Patient seen individually. Discussed the patient with Nursing staff reviewed the chart.~Reviewed interim history and current functioning. Reviewed vital signs,~Labs/ Radiology~and current medications noted below. Continue current treatment with the changes noted in the dictated addendum note Assessment: Vital Signs: Vital Signs Date Time Temp Pulse Resp B/P (MAP) Pulse Ox O2 Delivery O2 Flow Rate FiO2 06/07/17 16:26 97.6 76 18 127/77 (94) 96 06/06/17 17:33 Room Air I&O Intake and Output 06/07/17 07:00 Intake Total 1320 ml Balance 1320 ml Intake Oral 1320 ml Labs: Laboratory Tests Test 06/07/17 14:05 06/07/17 14:25 Urine Collection Type Unknown Urine Color Straw Urine Clarity Clear Urine pH 7.5 Urine Specific [place] 1.015 Urine Protein Neg (NEG-TRACE) Urine Glucose (UA) Neg mg/dL (NEG) Urine Ketones (Stick) Neg mg/dL (NEG) Urine Blood Neg (NEG) Urine Nitrite Neg (NEG) Urine Bilirubin Neg (NEG) Urine Urobilinogen Dipstick 0.2 mg/dL (0.2 mg/dL) Urine Leukocyte Esterase Neg (NEG) Urine RBC 0 /HPF (0-2) Urine WBC 0 /HPF (0-4) Urine Squamous Epithelial Cells None /LPF Urine Bacteria 0 /HPF (0-FEW) White Blood Count 7.2 x10^3/uL (4.0-11.0) Red Blood Count 3.88 x10^6/uL (3.50-5.40) Hemoglobin 12.3 g/dL (12.0-15.5) Hematocrit 35.2 % (36.0-47.0) L Mean Corpuscular Volume 91 fL (79-100) Mean Corpuscular Hemoglobin 32 pg (25-35) Mean Corpuscular Hemoglobin Concent 35 g/dL (31-37) Red Cell Distribution Width 12.8 % (11.5-14.5) Platelet Count 283 x10^3/uL (140-400) Neutrophils (%) (Auto) 69 % (31-73) Lymphocytes (%) (Auto) 12 % (24-48) L Monocytes (%) (Auto) 17 % (0-9) H Eosinophils (%) (Auto) 2 % (0-3) Basophils (%) (Auto) 0 % (0-3) Neutrophils # (Auto) 5.0 x10^3uL (1.8-7.7) Lymphocytes # (Auto) 0.9 x10^3/uL (1.0-4.8) L Monocytes # (Auto) 1.2 x10^3/uL (0.0-1.1) H Eosinophils # (Auto) 0.1 x10^3/uL (0.0-0.7) Basophils # (Auto) 0.0 x10^3/uL (0.0-0.2) Sodium Level 131 mmol/L (136-145) L Potassium Level 3.9 mmol/L (3.5-5.1) Chloride Level 93 mmol/L (98-107) L Carbon Dioxide Level 32 mmol/L (21-32) Anion Gap 6 (6-14) Blood Urea Nitrogen 5 mg/dL (7-20) L Creatinine 0.5 mg/dL (0.6-1.0) L Estimated GFR (Cockcroft-Gault) 123.8 BUN/Creatinine Ratio 10 (6-20) Glucose Level 89 mg/dL (70-99) Calcium Level 9.0 mg/dL (8.5-10.1) Total Bilirubin 0.3 mg/dL (0.2-1.0) Aspartate Amino Transferase (AST) 10 U/L (15-37) L Alanine Aminotransferase (ALT) 14 U/L (14-59) Alkaline Phosphatase 72 U/L (46-116) Total Protein 6.8 g/dL (6.4-8.2) Albumin 3.5 g/dL (3.4-5.0) Albumin/Globulin Ratio 1.1 (1.0-1.7) Current Medications: Meds: Current Medications Multi-Ingredient Ointment (Analgesic Pearce) 1 tiffany PRN QID PRN TP MUSCLE PAIN; Start 05/24/17 at 01:15 Al Hydroxide/Mg Hydroxide (Mylanta Plus Xs) 15 ml PRN AFTMEALHC PRN PO DYSPEPSIA; Start 05/24/17 at 01:15 Nicotine (Nicoderm Cq 21mg) 1 patch DAILY TD Last administered on 4/17/18at 09: 51; Start 05/24/17 at 09:00; Stop 05/26/17 at 14:25; Status DC Bupropion HCl (Wellbutrin Sr) 150 mg DAILY PO Last administered on 06/05/17 07 :49; Start 05/24/17 at 09:00; Stop 06/05/17 at 19:49; Status DC Divalproex Sodium (Depakote Sprinkles) 250 mg DAILY PO Last administered on 09:51; Start 05/24/17 at 09:00; Stop 05/26/17 at 19:20; Status DC Divalproex Sodium (Depakote Sprinkles) 500 mg QHS PO Last administered on 20:43; Start 05/24/17 at 21:00; Stop 05/26/17 at 19:20; Status DC Quetiapine Fumarate (SEROquel) 100 mg QHS PO Last administered on 06/07/17 20: 18; Start 05/24/17 at 21:00 Risperidone (RisperDAL) 3 mg BID PO Last administered on 06/07/17 20:17; Start 05/24/17 at 09:00 Olanzapine (ZyPREXA ZYDIS) 5 mg PRN Q2HR PRN PO Psych; Start 05/24/17 at 01:15 Acetaminophen (Tylenol) 650 mg PRN Q6HRS PRN PO PAIN / TEMP; Start 05/24/17 at 01:30; Status UNV Atorvastatin Calcium (Lipitor) 10 mg QHS PO Last administered on 06/07/17 20: 17; Start 05/24/17 at 21:00 Vitamin D (Vitamin D3) 1,000 unit DAILY PO Last administered on 06/07/17 07:59 ; Start 05/24/17 at 09:00 Furosemide (Lasix) 40 mg BID92 PO Last administered on 06/07/17 12:49; Start 05/24/17 at 09:00 Guaifenesin (Robitussin Dm) 5 ml PRN Q6HRS PRN PO CONGESTION Last administered on 05/26/17 14:51; Start 05/24/17 at 01:30 Ibuprofen (Motrin) 400 mg PRN Q4HRS PRN PO MODERATE PAIN Last administered on 17:35; Start 05/24/17 at 01:30 Levothyroxine Sodium (Synthroid) 150 mcg DAILY07 PO Last administered on 04:27; Start 05/24/17 at 07:00; Stop 05/28/17 at 13:46; Status DC Magnesium Hydroxide (Milk Of Magnesia) 2,400 mg PRN Q24HRS PRN PO CONSTIPATION ; Start 05/24/17 at 01:30; Status UNV Polyethylene Glycol (miraLAX) 17 gm PRN DAILY PRN PO CONSTIPATION Last administered on 06/02/17 06:29; Start 05/24/17 at 01:30 Sennosides (Senna) 8.6 mg QHS PO Last administered on 06/07/17 20:19; Start at 21:00 Calcium Carbonate/ Glycine (Tums) 500 mg PRN Q4HRS PRN PO INDIGESTION Last administered on 06/01/17 14:38; Start 05/24/17 at 02:00 Calcium/Vitamin D (Oscal D 500mg/ 200uts) 1 tab DAILYWBKFT PO Last administered on 06/07/17 07:59; Start 05/24/17 at 08:00 Loperamide HCl (Imodium) 2 mg PRN Q2MIN PRN PO DIARRHEA; Start 05/24/17 at 02: 00 Cetirizine HCl (ZyrTEC) 10 mg PRN DAILY PRN PO ALLERGIES; Start 05/24/17 at 09: 00 Multi-Ingred Cream/Lotion/Oil/ Oint (Hydrocerin) 1 tiffany DAILY TP Last administered on 06/06/17 07:54; Start 05/24/17 at 09:00 Multivitamins/ Calcium (Thera-M Plus) 1 tab DAILY PO Last administered on 07:59; Start 05/24/17 at 09:00 Potassium Chloride (Klor-Con) 10 meq DAILYWBKFT PO Last administered on 07:59; Start 05/24/17 at 08:00 Acetaminophen (Tylenol) 650 mg PRN Q6HRS PRN PO PAIN / TEMP Last administered on 06/03/17 20:03; Start 05/24/17 at 02:00 Magnesium Hydroxide (Milk Of Magnesia) 2,400 mg PRN Q24HRS PRN PO CONSTIPATION ; Start 05/24/17 at 02:00 Nicotine Polacrilex (Nicorette Gum) 2 mg PRN Q2HR PRN BC SMOKING CESSATION Last administered on 05/27/17at 20:41; Start 05/26/17 at 14:30 Divalproex Sodium (Depakote Sprinkles) 500 mg DAILY PO Last administered on at 07:59; Start 05/27/17 at 09:00 Divalproex Sodium (Depakote Sprinkles) 750 mg QHS PO Last administered on 20:19; Start 05/26/17 at 21:00 Trazodone HCl (Desyrel) 50 mg QHS PO Last administered on 05/29/17 19:41; Start 05/26/17 at 21:00; Stop 05/30/17 at 19:49; Status DC Trazodone HCl (Desyrel) 50 mg PRN QHS PRN PO INSOMNIA Last administered on 06/04 23:40; Start 05/26/17 at 19:15; Stop 06/05/17 at 19:49; Status DC Famotidine (Pepcid Vial) 20 mg STK-MED ONCE .ROUTE ; Start 05/28/17 at 11:59; Stop 05/28/17 at 12:00; Status DC Levothyroxine Sodium (Synthroid) 150 mcg DAILY06 PO Last administered on at 05:46; Start 05/29/17 at 06:00 Trazodone HCl (Desyrel) 100 mg QHS PO Last administered on 06/04/17at 20:22; Start 05/30/17 at 21:00; Stop 06/05/17 at 19:49; Status DC Melatonin 6 mg QHS PO Last administered on 06/07/17 20:18; Start 06/05/17 at 21:00 Hydroxyzine HCl (Atarax) 50 mg QHS PO Last administered on 06/07/17at 20:21; Start 06/07/17 at 21:00 Hydroxyzine HCl (Atarax) 50 mg PRN QHS PRN PO INSOMNIA; Start 06/07/17 at 18:30 Active Scripts Active Reported Antacid Liquid (Mag Hydrox/Al Hydrox/Simeth) 355 Ml Oral.susp 355 Ml PO PRN AFTMEAL PRN Analgesic [place] (Methyl Salicylate/Menthol) 28 Gm Oint...g. 1 Gm TP PRN QID PRN Melatonin 3 Mg Tablet 6 Mg PO HS Zyprexa Zydis (Olanzapine) 5 Mg Tab.rapdis 5 Mg PO PRN Q2HR PRN Nicotine Gum (Nicotine Polacrilex) 2 Mg Gum 2 Mg BC PRN Q2HR PRN Vitamin D3 (Cholecalciferol (Vitamin D3)) 1,000 Unit Tablet 1,000 Unit PO DAILY Calcium (Calcium Carbonate) 500 Mg Tab.chew 500 Mg PO PRN Q4HRS PRN Senna Concentrate (Sennosides) 8.6 Mg Tablet 8.6 Mg PO QHS Guaifenesin Dm Syrup (Guaifenesin/Dextromethorphan) 5 Ml Syrup 5 Ml PO PRN Q6HRS PRN Robitussin Cough-Chest Dm Liq (Guaifenesin/Dextromethorphan) 237 Ml Liquid 237 Ml PO Risperdal (Risperidone) 3 Mg Tablet 3 Mg PO BID Seroquel (Quetiapine Fumarate) 200 Mg Tablet 200 Mg PO QHS Potassium Chloride 10 Meq Tablet.er 10 Meq PO DAILY Miralax (Polyethylene Glycol 3350) 119 Gm Powder 17 Gm PO PRN DAILY PRN Multi Vitamin Daily (Multivitamin) 1 Each Tablet 1 Tab PO DAILY Milk Of Magnesia (Magnesium Hydroxide) 400 Mg/5 Ml Oral.susp 2,400 Mg PO PRN Q24HRS PRN Loratadine 10 Mg Tablet 10 Mg PO PRN Q24HRS PRN Loperamide (Loperamide Hcl) 2 Mg Tablet 2 Mg PO PRN Q2HR PRN MDD 16mg Loperamide (Loperamide Hcl) 1 Mg/7.5 Ml Liquid 2 Mg PO PRN Q2HR PRN MDD 16mg Levothyroxine Sodium 150 Mcg Tablet 150 Mcg PO DAILY07 Ibuprofen 400 Mg Tablet 400 Mg PO PRN Q4HRS PRN Hydrocerin Lotion (Mineral Oil/I-Prop Myr/Water) 472 Ml Lotion 1 Tiffany TP DAILY Lasix (Furosemide) 40 Mg Tablet 40 Mg PO BID92 Depakote Sprinkle (Divalproex Sodium) 125 Mg Cap.sprink 500 Mg PO QHS Depakote Sprinkle (Divalproex Sodium) 125 Mg Cap.sprink 250 Mg PO DAILY Calcium 600 + Vit D 400 Tablet (Calcium Carbonate/Vitamin D3) 1 Each Tablet 1 Tab PO DAILY Wellbutrin Sr (Bupropion Hcl) 150 Mg Tablet.er 150 Mg PO DAILY Atorvastatin Calcium 10 Mg Tablet 10 Mg PO QHS Tylenol (Acetaminophen) 325 Mg Tablet 650 Mg PO PRN Q6HRS PRN I have reviewed the current psychotropics carefully including drug interactions. Risk benefit ratio favors no change other than as noted in my dictated progress note. Diagnosis: Problems: (1) Schizoaffective disorder, bipolar type (2) Anxiety disorder (3) Impulse control disorder (4) Bipolar affective, mixed, sev w/ psych (5) Schizophrenia, disorganized, subchronic with acute exacerbation CHRIS العلي MD Jun 07, 2017 22:30
--- NOTE | 2017-06-08 00:10 | PN ---
DATE: 06/05/2017 This is a late entry, 06/05/2017, covers the elements not covered in my initial note, 06/05/2017. SUBJECTIVE: I met with the patient in the evening. She slept 2-3/4 hours, anxious, frequently back into the nursing station. No specific complaints. Sodium 130, chloride 80s. Dr. Burnham wonders whether trazodone could be contributing some symptoms of SIADH. We will stop it together with stopping the Wellbutrin-SR, which could be contributing to some of her insomnia. REVIEW OF SYSTEMS: No CV, , pulmonary, eye, ENT system symptoms on review. MENTAL STATUS EXAM: Oriented to herself and situation. Speech coherent, less pressured. Abstraction fair, computation impaired, language function intact, attention span short. Mood and affect somewhat anxious, labile at times. LABORATORY DATA: Reviewed. IMPRESSION: Unchanged from initial note. PLAN: Start melatonin 6 mg at bedtime. Rest as above and per initial orders. CHRIS العلي MD DR: PATIENCE/ilia JOB#: [id number] / [id number]
[2017-06-08] MEDS: LEVOTHYROXINE 150 MCG TABLET PO SCH (05:51)
[2017-06-08 06:23] VITALS: BP 122/75
[2017-06-08] MEDS: FUROSEMIDE 40 MG TABLET PO SCH (09:12)
[2017-06-08] MEDS: CHOLECALCIFEROL (VITAMIN D3) 1,000 UNIT TABLET PO SCH (09:12)
[2017-06-08] MEDS: POTASSIUM CHLORIDE 10 MEQ TABLET.ER. PO SCH (09:12)
[2017-06-08] MEDS: CALCIUM CARB/VIT D3 500/200 TABLET PO SCH (09:12)
[2017-06-08] MEDS: DIVALPROEX 125 MG CAP.SPRINK PO SCH (09:12)
[2017-06-08] MEDS: risperiDONE 1 MG TABLET. PO SCH (09:12)
[2017-06-08] MEDS: MULTIVITAMIN with MINERAL TABLET. PO SCH (09:12)
[2017-06-08] MEDS: MINERAL OIL/PETROLATUM TOPICAL CREAM 113GM JAR. TP SCH (09:13)
--- NOTE | 2017-06-08 21:25 | PDOC ---
Exam Note: Maulik Note: Please also refer to the separate dictated note~for this date of service dictated separately.~Patient seen individually. Discussed the patient with Nursing staff reviewed the chart.~Reviewed interim history and current functioning. Reviewed vital signs,~Labs/ Radiology~and current medications noted below. Continue current treatment with the changes noted in the dictated addendum note Assessment: Vital Signs: Vital Signs Date Time Temp Pulse Resp B/P (MAP) Pulse Ox O2 Delivery O2 Flow Rate FiO2 06/08/17 06:23 98.9 80 22 122/75 (91) 94 06/06/17 17:33 Room Air I&O Intake and Output 06/08/17 07:00 Intake Total 980 ml Balance 980 ml Intake Oral 980 ml # Voids 1 # Bowel Movements 1 Current Medications: Meds: Current Medications Multi-Ingredient Ointment (Analgesic [place]) 1 tiffany PRN QID PRN TP MUSCLE PAIN; Start 05/24/17 at 01:15; Stop 06/08/17 at 11:51; Status DC Al Hydroxide/Mg Hydroxide (Mylanta Plus Xs) 15 ml PRN AFTMEALHC PRN PO DYSPEPSIA; Start 05/24/17 at 01:15; Stop 06/08/17 at 11:51; Status DC Nicotine (Nicoderm Cq 21mg) 1 patch DAILY TD Last administered on 05/26/17at 09: 51; Start 05/24/17 at 09:00; Stop 05/26/17 at 14:25; Status DC Bupropion HCl (Wellbutrin Sr) 150 mg DAILY PO Last administered on 06/05/17at 07 :49; Start 05/24/17 at 09:00; Stop 06/05/17 at 19:49; Status DC Divalproex Sodium (Depakote Sprinkles) 250 mg DAILY PO Last administered on at 09:51; Start 05/24/17 at 09:00; Stop 05/26/17 at 19:20; Status DC Divalproex Sodium (Depakote Sprinkles) 500 mg QHS PO Last administered on at 20:43; Start 05/24/17 at 21:00; Stop 05/26/17 at 19:20; Status DC Quetiapine Fumarate (SEROquel) 100 mg QHS PO Last administered on 4/29/18at 20: 18; Start 05/24/17 at 21:00; Stop 06/08/17 at 11:51; Status DC Risperidone (RisperDAL) 3 mg BID PO Last administered on 06/08/17 09:12; Start 05/24/17 at 09:00; Stop 06/08/17 at 11:51; Status DC Olanzapine (ZyPREXA ZYDIS) 5 mg PRN Q2HR PRN PO Psych; Start 05/24/17 at 01:15 ; Stop 06/08/17 at 11:51; Status DC Acetaminophen (Tylenol) 650 mg PRN Q6HRS PRN PO PAIN / TEMP; Start 05/24/17 at 01:30; Status UNV Atorvastatin Calcium (Lipitor) 10 mg QHS PO Last administered on 06/07/17at 20: 17; Start 05/24/17 at 21:00; Stop 06/08/17 at 11:51; Status DC Vitamin D (Vitamin D3) 1,000 unit DAILY PO Last administered on 06/08/17at 09:12 ; Start 05/24/17 at 09:00; Stop 06/08/17 at 11:51; Status DC Furosemide (Lasix) 40 mg BID92 PO Last administered on 06/08/17 09:12; Start 05/24/17 at 09:00; Stop 06/08/17 at 11:51; Status DC Guaifenesin (Robitussin Dm) 5 ml PRN Q6HRS PRN PO CONGESTION Last administered on 05/26/17at 14:51; Start 05/24/17 at 01:30; Stop 06/08/17 at 11:51; Status DC Ibuprofen (Motrin) 400 mg PRN Q4HRS PRN PO MODERATE PAIN Last administered on at 17:35; Start 05/24/17 at 01:30; Stop 06/08/17 at 11:51; Status DC Levothyroxine Sodium (Synthroid) 150 mcg DAILY07 PO Last administered on at 04:27; Start 05/24/17 at 07:00; Stop 05/28/17 at 13:46; Status DC Magnesium Hydroxide (Milk Of Magnesia) 2,400 mg PRN Q24HRS PRN PO CONSTIPATION ; Start 05/24/17 at 01:30; Status UNV Polyethylene Glycol (miraLAX) 17 gm PRN DAILY PRN PO CONSTIPATION Last administered on 06/02/17at 06:29; Start 05/24/17 at 01:30; Stop 06/08/17 at 11:51 ; Status DC Sennosides (Senna) 8.6 mg QHS PO Last administered on 06/07/17at 20:19; Start at 21:00; Stop 06/08/17 at 11:51; Status DC Calcium Carbonate/ Glycine (Tums) 500 mg PRN Q4HRS PRN PO INDIGESTION Last administered on 06/01/17at 14:38; Start 05/24/17 at 02:00; Stop 06/08/17 at 11:51 ; Status DC Calcium/Vitamin D (Oscal D 500mg/ 200uts) 1 tab DAILYWBKFT PO Last administered on 06/08/17at 09:12; Start 05/24/17 at 08:00; Stop 06/08/17 at 11:51 ; Status DC Loperamide HCl (Imodium) 2 mg PRN Q2MIN PRN PO DIARRHEA; Start 05/24/17 at 02: 00; Stop 06/08/17 at 11:51; Status DC Cetirizine HCl (ZyrTEC) 10 mg PRN DAILY PRN PO ALLERGIES; Start 05/24/17 at 09: 00; Stop 06/08/17 at 11:51; Status DC Multi-Ingred Cream/Lotion/Oil/ Oint (Hydrocerin) 1 tiffany DAILY TP Last administered on 06/08/17at 09:13; Start 05/24/17 at 09:00; Stop 06/08/17 at 11:51 ; Status DC Multivitamins/ Calcium (Thera-M Plus) 1 tab DAILY PO Last administered on at 09:12; Start 05/24/17 at 09:00; Stop 06/08/17 at 11:51; Status DC Potassium Chloride (Klor-Con) 10 meq DAILYWBKFT PO Last administered on at 09:12; Start 05/24/17 at 08:00; Stop 06/08/17 at 11:51; Status DC Acetaminophen (Tylenol) 650 mg PRN Q6HRS PRN PO PAIN / TEMP Last administered on 06/03/17 20:03; Start 05/24/17 at 02:00; Stop 06/08/17 at 11:51; Status DC Magnesium Hydroxide (Milk Of Magnesia) 2,400 mg PRN Q24HRS PRN PO CONSTIPATION ; Start 05/24/17 at 02:00; Stop 06/08/17 at 11:51; Status DC Nicotine Polacrilex (Nicorette Gum) 2 mg PRN Q2HR PRN BC SMOKING CESSATION Last administered on 05/27/17at 20:41; Start 05/26/17 at 14:30; Stop 06/08/17 at 11:51; Status DC Divalproex Sodium (Depakote Sprinkles) 500 mg DAILY PO Last administered on at 09:12; Start 05/27/17 at 09:00; Stop 06/08/17 at 11:51; Status DC Divalproex Sodium (Depakote Sprinkles) 750 mg QHS PO Last administered on at 20:19; Start 05/26/17 at 21:00; Stop 06/08/17 at 11:51; Status DC Trazodone HCl (Desyrel) 50 mg QHS PO Last administered on 05/29/17at 19:41; Start 05/26/17 at 21:00; Stop 05/30/17 at 19:49; Status DC Trazodone HCl (Desyrel) 50 mg PRN QHS PRN PO INSOMNIA Last administered on 06/04at 23:40; Start 05/26/17 at 19:15; Stop 06/05/17 at 19:49; Status DC Famotidine (Pepcid Vial) 20 mg STK-MED ONCE .ROUTE ; Start 05/28/17 at 11:59; Stop 05/28/17 at 12:00; Status DC Levothyroxine Sodium (Synthroid) 150 mcg DAILY06 PO Last administered on at 05:51; Start 05/29/17 at 06:00; Stop 06/08/17 at 11:51; Status DC Trazodone HCl (Desyrel) 100 mg QHS PO Last administered on 06/04/17at 20:22; Start 05/30/17 at 21:00; Stop 06/05/17 at 19:49; Status DC Melatonin 6 mg QHS PO Last administered on 06/07/17at 20:18; Start 06/05/17 at 21:00; Stop 06/08/17 at 11:51; Status DC Hydroxyzine HCl (Atarax) 50 mg QHS PO Last administered on 06/07/17at 20:21; Start 06/07/17 at 21:00; Stop 06/08/17 at 11:51; Status DC Hydroxyzine HCl (Atarax) 50 mg PRN QHS PRN PO INSOMNIA; Start 06/07/17 at 18:30 ; Stop 06/08/17 at 11:51; Status DC Active Scripts Active Reported Antacid Liquid (Mag Hydrox/Al Hydrox/Simeth) 355 Ml Oral.susp 355 Ml PO PRN AFTMEAL PRN Analgesic [place] (Methyl Salicylate/Menthol) 28 Gm Oint...g. 1 Gm TP PRN QID PRN Melatonin 3 Mg Tablet 6 Mg PO HS Zyprexa Zydis (Olanzapine) 5 Mg Tab.rapdis 5 Mg PO PRN Q2HR PRN Nicotine Gum (Nicotine Polacrilex) 2 Mg Gum 2 Mg BC PRN Q2HR PRN Vitamin D3 (Cholecalciferol (Vitamin D3)) 1,000 Unit Tablet 1,000 Unit PO DAILY Calcium (Calcium Carbonate) 500 Mg Tab.chew 500 Mg PO PRN Q4HRS PRN Senna Concentrate (Sennosides) 8.6 Mg Tablet 8.6 Mg PO QHS Guaifenesin Dm Syrup (Guaifenesin/Dextromethorphan) 5 Ml Syrup 5 Ml PO PRN Q6HRS PRN Risperdal (Risperidone) 3 Mg Tablet 3 Mg PO BID Seroquel (Quetiapine Fumarate) 200 Mg Tablet 100 Mg PO QHS Potassium Chloride 10 Meq Tablet.er 10 Meq PO DAILY Miralax (Polyethylene Glycol 3350) 119 Gm Powder 17 Gm PO PRN DAILY PRN Multi Vitamin Daily (Multivitamin) 1 Each Tablet 1 Tab PO DAILY Milk Of Magnesia (Magnesium Hydroxide) 400 Mg/5 Ml Oral.susp 2,400 Mg PO PRN Q24HRS PRN Loratadine 10 Mg Tablet 10 Mg PO PRN Q24HRS PRN Loperamide (Loperamide Hcl) 2 Mg Tablet 2 Mg PO PRN Q2HR PRN MDD 16mg Levothyroxine Sodium 150 Mcg Tablet 150 Mcg PO DAILY07 Ibuprofen 400 Mg Tablet 400 Mg PO PRN Q4HRS PRN Hydrocerin Lotion (Mineral Oil/I-Prop Myr/Water) 472 Ml Lotion 1 Tiffany TP DAILY Lasix (Furosemide) 40 Mg Tablet 40 Mg PO BID92 Depakote Sprinkle (Divalproex Sodium) 125 Mg Cap.sprink 750 Mg PO QHS Depakote Sprinkle (Divalproex Sodium) 125 Mg Cap.sprink 500 Mg PO DAILY Calcium 600 + Vit D 400 Tablet (Calcium Carbonate/Vitamin D3) 1 Each Tablet 1 Tab PO DAILY Atorvastatin Calcium 10 Mg Tablet 10 Mg PO QHS Tylenol (Acetaminophen) 325 Mg Tablet 650 Mg PO PRN Q6HRS PRN I have reviewed the current psychotropics carefully including drug interactions. Risk benefit ratio favors no change other than as noted in my dictated progress note. Diagnosis: Problems: (1) Schizoaffective disorder, bipolar type (2) Anxiety disorder (3) Impulse control disorder (4) Bipolar affective, mixed, sev w/ psych (5) Schizophrenia, disorganized, subchronic with acute exacerbation CHRIS العيل MD Jun 08, 2017 21:25
--- NOTE | 2017-06-09 03:03 | PN ---
DATE: 06/06/2017 This is a late entry for 06/06/2017 covers elements not covered in my initial note of 06/06/2017. SUBJECTIVE: I met with the patient in the evening. The patient slept 6-1/2 hours, somewhat drowsy in the morning, more awake later in the day. REVIEW OF SYSTEMS: No CV, , pulmonary, eye system symptoms on review. MENTAL STATUS EXAM: Oriented to herself and situation. Speech coherent, less pressured. Abstraction fair, computation impaired, language function intact, attention span short. Mood and affect less labile. LABORATORY DATA: Reviewed. IMPRESSION: Unchanged from initial note. PLAN: Continue psychotropics mentioned in my initial note. MAN Wan العلي MD DR: PATIENCE/ilia JOB#: [id number] / [id number]
--- NOTE | 2017-06-09 05:16 | PN ---
DATE: 06/07/2017 This late entry 06/07/2017 covers elements not covered in my initial note 06/07/2017. SUBJECTIVE: I met with the patient in the evening of 06/07/2017. The patient slept just half hour previous evening, refused breakfast and lunch. Trazodone has been discontinued because sodium chloride were low consequent to possible SIADH or drinking too much water. UA unremarkable. Tearful at times. We will add hydroxyzine 50 mg at bedtime p.r.n. insomnia, may repeat x 1. REVIEW OF SYSTEMS: No CV, , pulmonary, eye system symptoms on review. MENTAL STATUS EXAM: Oriented to herself and situation. Speech is coherent, abstraction fair, computation impaired, language function intact. No suicidal or homicidal ideation. Mood and affect are improved. IMPRESSION: Unchanged from initial note. PLAN: Continue current psychotropics with changes noted above. MAN Wan العلي MD DR: PATIENCE/ilia JOB#: [id number] / [id number]
--- NOTE | 2017-06-09 20:17 | DS ---
DATE OF DISCHARGE: 06/08/2017 DISCHARGE SUMMARY AND PSYCHIATRIC PROGRESS NOTE This late entry of date of service 06/08/2017 covers elements not covered in my initial note of 06/08/2017. REASON FOR ADMISSION: Please refer to the admission history for details. Briefly, the patient is a 66-year-old female referred to us from the [facility] Emergency Room, where she presented from [facility] in [place] on account of refusing her medications for 2 weeks. She eloped from the facility on 05/23/2017, ambulated to a hotel and called her brother. She was then taken back to the facility by police, extremely agitated, psychotic, within the context of her schizoaffective disorder, bipolar type, mixed with psychotic features. She was then referred to us for inpatient psychiatric stabilization. SIGNIFICANT FINDINGS AND CLINICAL COURSE: Following admission, the patient was seen daily individually by myself. Medically she was followed by Dr. Burnham/Dr Loo. She was extremely labile in her mood, having intermittent marked insomnia. Adjustments were made in her psychotropics and she seemed to respond to a combination of Depakote Sprinkles 500 mg a.m., 750 at bedtime with a Valproic acid level therapeutic at 65 along with Seroquel 100 mg at bedtime, Risperdal was 3 mg b.i.d., Zyprexa p.r.n., melatonin 6 mg at bedtime. Hydroxyzine was added 50 mg at bedtime p.r.n. insomnia, may repeat x 1. Gradually mood appeared to stabilize. She was much less agitated, anxious. No suicidal or homicidal ideation or thoughts of elopement were evident at discharge. She was on 2 atypical antipsychotics at discharge, and the plan would be to reduce the Seroquel by 25 mg starting in 30 days from discharge and the dose reduction to be 25 mg a day every month until it is discontinued, leaving her on the single atypical antipsychotic Risperdal. REVIEW OF SYSTEMS: Prior to discharge 06/08/2017; no CV, , pulmonary, eye, ENT system symptoms on review. MENTAL STATUS EXAM: Reasonably oriented. Speech is coherent, abstraction fair, computation impaired, language function intact, attention span short. Mood and affect remain somewhat anxious, intermittently withdrawn, but improved. No suicidal or homicidal ideation prior to discharge. FINAL DIAGNOSES: Schizoaffective disorder, bipolar type, mixed with psychotic features, in partial remission; anxiety disorder, unspecified; impulse control disorder, unspecified. Rest unchanged from admission. DISCHARGE MEDICATIONS: Please refer to MRAD. DISCHARGE INSTRUCTIONS: Outpatient psychiatric and medical followup at the long-term. Time for discharge day management greater than 30 minutes. CHRIS العلي MD DR: PATIENCE/ilia JOB#: [id number] / [id number]
--- NOTE | 2017-06-10 03:29 | PN ---
DATE: 06/08/2017 NO DICTATION. MAN Wan العلي MD DR: Dulce JOB#: [id number] / [id number]
== END 2017-06-08 11:51 | disposition home or self-care (01) | DRG 885 ==
LOC: GEROPSY 05-24 01:02
PROVIDERS: ADMIT Psychiatry & Neurology Psychiatry; ATTEND Psychiatry & Neurology Psychiatry
DX: F25.0 Schizoaffective disorder, bipolar type (principal); G20 Parkinson's disease; I50.9 Heart failure, unspecified; E03.9 Hypothyroidism, unspecified; M19.90 Unspecified osteoarthritis, unspecified site; E78.5 Hyperlipidemia, unspecified; F63.9 Impulse disorder, unspecified; G47.00 Insomnia, unspecified; I73.9 Peripheral vascular disease, unspecified; J44.9 Chronic obstructive pulmonary disease, unspecified; K21.9 Gastro-esophageal reflux disease without esophagitis; Z66 Do not resuscitate; Z79.899 Other long term (current) drug therapy; Z88.0 Allergy status to penicillin
CPT/HCPCS: 36415; 80053; 80061; 80164; 81001; 82306; 82607; 83036; 83540; 83550; 83735; 84436; 84443; 84480; 85025; 86593; 87086; 99407